=== PATIENT | female | born 1985 | race Caucasian/White ===

== ENCOUNTER 2019-03-27 09:57 | Outpatient (REF) | payer BC, SELFPAY ==
[2019-03-27 13:18] LABS: HCT 41.5 % (36.0-46.0); HGB 13.8 g/dL (12.0-15.5); Mean Corp. HGB Concentration 33.3 g/dL (32.0-36.0); Mean Corpuscular Hemoglobin 30.1 pg (27.0-33.0); Mean Corpuscular Volume 90.6 fL (80-95); Mean Platelet Volume 11.2 fL (8.0-11.0); Platelet Count 258 x1000/uL (130-400); RBC 4.58 m/cumm (4.00-5.20); RBC Distribution Width 13.4 % (11.7-14.6); White Blood Cell Count 7.54 k/cumm (4.4-10.8)
[2019-03-27 13:47] LABS: Anion Gap 10.3 mmol/L (3-11); BUN 19 mg/dL (7-18); CO2 25.7 mmol/L (21.0-32.0); CREATININE 0.81 mg/dL (0.55-1.02); Calcium 9.3 mg/dL (8.5-10.1); Chloride 106 mmol/L (98-107); Glucose 93 mg/dL (70-100); Potassium 4.5 mmol/L (3.5-5.1); Sodium 142 mmol/L (136-145); TSH (W/Ref FT4) 3.04 uIU/mL (0.36-3.74)
== END 2019-03-27 10:17 ==
LOC: NCHCN 09:57
PROVIDERS: PCP Nurse Practitioner Family; Visit Provider Nurse Practitioner Family
DX: R55 Syncope and collapse (principal)
CPT/HCPCS: 80048; 85027; 84443

== ENCOUNTER 2019-04-03 10:19 | Outpatient (REF) | payer BC, SELFPAY ==
--- NOTE | 2019-04-03 09:30 | PAPFT_PTH ---
PATIENT: Vita Gaitan LOC: [facility] U#:[id number] AGE/SX: 34/F ROOM: RE04/03/[address]: Deyvi Borrero : 1985 BED: DIS: 04/03/2019 SPEC #: [id number] RECD: 04/06/19 10:48 STATUS: KIMBERLY REMilton #: [id number] ELDER: 04/03/19 09:[address]: Deyvi Borrero DEPT: [facility] [place] Cytology RECD BY: Sharmaine Mauro Tissues: 1 - CX/ENDOCX FOR PAP SMEARS Procedures: PAP THIN PREP/UVM Screening HPV DNA PROBE Comments: [id number]
== END 2019-04-03 10:39 ==
LOC: NCHCN 10:19
PROVIDERS: PCP Nurse Practitioner Family; Visit Provider Nurse Practitioner Family
DX: Z00.00 Encounter for general adult medical examination without abnormal findings (principal); Z12.4 Encounter for screening for malignant neoplasm of cervix; Z11.51 Encounter for screening for human papillomavirus (HPV)
CPT/HCPCS: 88142; 87624

== ENCOUNTER 2020-06-20 14:00 | Emergency (ER) | payer BC, SELFPAY ==
[2020-06-20] VITALS (13 sets, daily range): BP systolic 110–130; BP diastolic 59–82; PULSE 56–74; RESP 8–26; TEMP 36.6–37; O2SAT 98–100
--- NOTE | 2020-06-20 14:00 | RT.EKG_ITS ---
APPROVED REPORT Exam: Resting ECG Patient Location: E HR:77 bpm ECG Measurements Heart Rate 77 AXIS NV 142 P 65 QRSd 92 QRS 47 QT 382 T 21 QTc 415 Conclusion Sinus rhythm...normal P axis, V-rate 60- 99 Normal Electrocardiogram
--- NOTE | 2020-06-20 14:30 | DI.RAD_ITS ---
EXAM: XR PORTABLE CHEST AP CLINICAL HISTORY: chest pain TECHNIQUE: 2D digital imaging was performed. COMPARISON: No exams were available for comparison FINDINGS: MEDIASTINUM: Normal. HEART: Normal. PULMONARY VASCULATURE: Normal. LUNGS: Clear. PLEURAL SPACE: No pleural effusion or pneumothorax. BONE:Within normal limits for the patient's age. OTHER FINDINGS:There overlying monitoring wires. IMPRESSION: No acute pulmonary findings. DATA REPOSITORY: RADIATION DOSE DELIVERED:
--- NOTE | 2020-06-20 14:37 | ED.GENADUL_ITS ---
Discharge Plan Disposition Patient Disposition: HOME Condition: Good Discharge Details Clinical Impression: Chest pain Primary Care Provider: Deyvi Borrero ED Provider: Sridevi Finn Home Meds and New Rx's Prescriptions: No Action albuterol sulfate 90 mcg/actuation Hfa Aerosol Inhaler 2 puff INHALATION Q6H PRNRF: 0 Discharge Instructions Instructions: Chest Pain (ED) Additional Instructions: Please follow-up with your primary care physician in 2 to 3 days for reevaluation Return earlier should you have new symptoms Your tests today are reassuring Medical Decision Making Radiologist read the x-ray of your pain atelectasis versus pneumonia, patient had symptoms for the past month and a half, no leukocytosis, no hypoxia, no tachypnea, my suspicion for pneumonia is quite low, discussed with patient given that she had pretty significant pneumonia sounds like 6 or 7 years ago, likely residual atelectasis given presentation Patient to COVID-19 Patient is discharged home in stable condition with stable vitals, negative D- dimer, negative troponin with consistent productive cough for 4 days, no indication for second troponin symptoms consistent for 22 hours Heart score of 1 Discharged home stable condition with stable vital Medical Records Medical records reviewed: Yes I reviewed the patient's medical records. HPI This 35-year-old female presents with chest pain. She is active, pain behind April. He has been quite stressed at work. She denies any fever chills or injury. He denies known exacerbating or alleviating factors. She describes the pain is sharp and moderate.. She denies any exacerbation of her pain when leaning back. She denies bowel denies any alleviation of pain with leaning forward. She denies any recent flights, surgeries, long drives, history of coagulopathy. She denies any calf pain or swelling or exogenous hormones. She denies any known early family cardiac history. She does feel that her dad had DC greater than 50 years old. She does not smoke tobacco or have history of hypertension or hyperlipidemia. She denies any pleuritic component to her pain. She says similar episode associated with palpitations 5 years ago and saw cardiology without acute abnormality noted. General Date/Time Provider Initiated Documentation: 06/20/20 14:14 . Related Data Home Medications Medication Instructions Recorded Confirmed albuterol sulfate 2 puff INHALATION Q6H PRN 06/20/20 06/20/20 Allergies Allergy/AdvReac Type Severity Reaction Status Date / Time No Known Allergies Allergy Unverified 06/20/20 14:17 General Stated Complaint: Chest Pain TIO: 2 Review of Systems Narrative: Review of systems negative x7 aside from where indicated in the [facility] Social History Smoking/Tobacco Use Status: Never Smoking risk assessment performed?: Yes Alcohol Intake: current Alcohol Intake frequency: a few times a week Drug use: Never Substance use type: does not use Do you feel safe at home: Yes Do you feel safe in your relationship?: Yes Exam Narrative Exam Narrative: Constitutional: Well developed HEENT: No visible signs of trauma, no palpable Tenderness Eyes: Pupils equal round reactive to light and accommodation Neck: Nontender, no visible sign of trauma Musculoskeletal: No lumbar tenderness, no thoracic tenderness, no cervical spine from this, no hip tenderness bilaterally, no left knee tenderness, left ankle tenderness, over lateral malleolus, no papular no obvious deformity, Skin : No discoloration Neuro: Alert, oriented for age Const General: healthy appearing and no acute distress Orientation: oriented x3 HENMT Head: normal to inspection and atraumatic Throat: uvula midline Eyes Conjunctivae: conjunctivae normal Resp Effort & Inspection: normal respiratory effort Auscultation: clear to auscultation bilaterally Other: No acute distress Cardio Rate: regular rate Rhythm: regular rhythm GI Palpation: soft and nontender Skin General skin exam: no rashes or lesions noted Neuro General: patient alert and patient oriented x3 Extrem Other: No calf swelling or tenderness Course Vital Signs Vital signs: Vital Signs Temperature 37 C 06/20/20 14:10 Pulse 74 06/20/20 14:10 Respiratory Rate 15 06/20/20 14:10 Blood Pressure 130/66 06/20/20 14:10 Pulse Oximetry 99 06/20/20 14:10 Temperature 37 C 06/20/20 14:10 Temperature Source Temporal Artery Scan 06/20/20 14:10 Pulse 74 06/20/20 14:10 Respiratory Rate 15 06/20/20 14:10 Respiratory Effort Non-Labored 06/20/20 14:16 Blood Pressure 130/66 06/20/20 14:10 Blood Pressure Position Supine 06/20/20 14:10 Pulse Oximetry 99 06/20/20 14:10 Oxygen Delivery Method Room Air 06/20/20 14:10 Oxygen Flow Rate 0 06/20/20 14:10 Pain Level 2 06/20/20 14:10
[2020-06-20 15:20] LABS: Abs Immature Grans 0.03 10^3/uL (0.0-0.06); Absolute Basophil Count 0.04 10^3/uL (0.0-0.2); Absolute Eosinophil Count 0.12 10^3/uL (0.0-0.7); Absolute Lymphocyte Count 2.14 10^3/uL (1.2-3.4); Absolute Monocyte Count 0.55 10^3/uL (0.1-0.8); Absolute Neutrophil Count 6.04 10^3/uL (1.2-6.7); Basophils % 0.4; Eosinophils % 1.3; HCT 41.3 % (36.0-46.0); HGB 13.7 g/dL (11.2-15.7); Immature Grans % 0.3; MCH 30.2 pg (27.0-33.0); MCHC 33.2 % (32.0-36.0); MCV 91.2 fL (80-95); MPV 10.7 fL (8.0-11.0); Monocytes % 6.2; Neutrophils % 67.8; Nucleated RBC 0 %; Platelet Count 227 10^3/uL (130-400); RBC 4.53 10^6/uL (3.93-5.22); RDW 12.3 % (11.7-14.6); RDW-SD 41.4 fL; WBC 8.92 10^3/uL (4.4-10.8)
[2020-06-20 15:49] LABS: ALT 19 U/L (14-59); AST 9 U/L (15-37); Albumin 4.1 g/dL (3.4-5.0); Alkaline Phosphatase 61 U/L (46-116); BUN 13 mg/dL (7-18); Bilirubin, Total 0.4 mg/dL (0.2-1.0); CREATININE 0.79 mg/dL (0.55-1.02); Calcium 8.9 mg/dL (8.5-10.1); Chloride 104 mmol/L (98-107); Glucose 84 mg/dL (74-106); Potassium 3.8 mmol/L (3.5-5.1); Sodium 139 mmol/L (136-145); Total Protein 7.7 g/dL (6.4-8.2)
[2020-06-20 15:52] LABS: Troponin I < 0.05 ng/mL (<0.06)
[2020-06-20 16:02] LABS: D-Dimer 152 ng/mlFEU (<500)
--- NOTE | 2020-06-20 16:23 | DI.VRAD_ITS ---
PROCEDURE INFORMATION: Exam: XR Chest, 1 View Exam date and time: 06/20/2020 4:14 PM Age: 35 years old Clinical indication: Chest pain; Type not specified TECHNIQUE: Imaging protocol: XR of the chest Views: 1 view. COMPARISON: No relevant prior studies available. FINDINGS: Tubes, catheters and devices: Overlying EKG wires Lungs: Mild opacities in the medial right base Pleural space: Unremarkable. No pleural effusion. No pneumothorax. Heart/Mediastinum: Unremarkable. No cardiomegaly. Bones/joints: Unremarkable. IMPRESSION: Mild opacities in the medial right base may represent atelectasis or pneumonia. Dictated and Authenticated by: Sedrick Clarke MD. Ordering:KATT Laureano MD
== END 2020-06-20 17:10 | disposition home or self-care (01) ==
PROVIDERS: Emergency Provider Physician Assistant; PCP Nurse Practitioner Family
DX: R07.89 Other chest pain (principal)
CPT/HCPCS: 36415; 80053; 81025; 93005; 99285; 71045; 84484; 85025; 85379; 93010; 99284

== ENCOUNTER 2020-07-22 18:37 | Outpatient (REF) | payer BC, SELFPAY ==
[2020-07-24 11:14] LABS: COVID-19 RT-PCR UVMMC Result Negative (Negative)
== END 2020-07-22 18:38 | disposition home or self-care (01) ==
LOC: NCHCN 18:37
PROVIDERS: PCP Nurse Practitioner Family; Visit Provider Nurse Practitioner Family
DX: R06.02 Shortness of breath (principal)
CPT/HCPCS: U0003

== ENCOUNTER 2020-12-23 11:32 | Outpatient (CLI) | payer BC, SELFPAY ==
[2020-12-23 12:11] LABS: Abs Immature Grans 0.06 10^3/uL (0.0-0.06); Absolute Basophil Count 0.03 10^3/uL (0.0-0.2); Absolute Eosinophil Count 0.14 10^3/uL (0.0-0.7); Absolute Lymphocyte Count 2.06 10^3/uL (1.2-3.4); Absolute Monocyte Count 0.96 10^3/uL (0.1-0.8); Basophils % 0.3; Eosinophils % 1.2; HCT 38.1 % (36.0-46.0); Immature Grans % 0.5; MCH 30.7 pg (27.0-33.0); MCHC 34.1 % (32.0-36.0); MCV 89.9 fL (80-95); MPV 10.2 fL (8.0-11.0); Monocytes % 8.4; Neutrophils % 71.6; Nucleated RBC 0 %; Platelet Count 202 10^3/uL (130-400); RBC 4.24 10^6/uL (3.93-5.22); RDW 12.6 % (11.7-14.6); RDW-SD 40.9 fL; WBC 11.42 10^3/uL (4.4-10.8)
[2020-12-23 12:12] LABS: Absolute Neutrophil Count 8.18 10^3/uL (1.2-6.7)
[2020-12-23 12:22] LABS: Glucose,1 Hr (Glucola) 75 mg/dL (80-140)
[2020-12-23 13:37] LABS: TSH (W/Ref FT4) 1.98 uIU/mL (0.36-3.74)
[2020-12-25 16:11] LABS: Syphilis Total Ab w/Reflex Nonreactive (Nonreactive)
[2020-12-26 11:14] LABS: Varicella IgG Antibody Positive (See Note)
[2020-12-26 11:23] LABS: Rubella IgG Ab (UVM) Positive (See Note)
[2020-12-26 11:28] LABS: Hepatitis B Surface Ag Negative (Negative)
[2020-12-26 12:00] LABS: Hepatitis C Ab w Rflx HCV PCR Negative (Negative)
[2020-12-26 12:08] LABS: HIV-1/2 Ag & Ab Screen Negative (Negative)
== END 2020-12-23 11:33 | disposition home or self-care (01) ==
LOC: LBO 11:33
PROVIDERS: PCP Nurse Practitioner Family; Visit Provider Advanced Practice Midwife
DX: Z34.91 Encounter for supervision of normal pregnancy, unspecified, first trimester (principal); Z11.4 Encounter for screening for human immunodeficiency virus [HIV]; Z11.59 Encounter for screening for other viral diseases; Z01.84 Encounter for antibody response examination; Z3A.10 10 weeks gestation of pregnancy
CPT/HCPCS: 36415; 82950; 86787; 86803; 86850; 86900; 86901; 87340; 87389; 84443; 85025; 86762; 86780

== ENCOUNTER 2020-12-23 19:14 | Outpatient (REF) | payer BC, SELFPAY ==
[2020-12-23 17:23] LABS: *AMPHETAMINES SCREEN URINE Negative (Negative); *BARBITURATES SCREEN URINE Negative (Negative); *BENZODIAZEPINES SCREEN URINE Negative (Negative); Cannabinoids THC Negative (Negative); Cocaine Screen,Urine Negative (Negative); METHADONE URINE SCREEN Negative (Negative); OPIATES URINE SCREEN Negative (Negative)
[2020-12-23 17:26] LABS: Tricyclic Antidepressants Negative (Negative)
[2020-12-26 15:55] LABS: Chlamydia Result Negative (Negative); GC Result Negative (Negative)
[2020-12-29 07:42] LABS: Buprenorphine Negative ng/mL (Cutoff: 5.0); Norbuprenorphine Negative ng/mL (Cutoff: 2.5)
== END 2020-12-23 19:15 | disposition home or self-care (01) ==
LOC: LBN 19:14
PROVIDERS: PCP Nurse Practitioner Family; Visit Provider Advanced Practice Midwife
DX: Z34.91 Encounter for supervision of normal pregnancy, unspecified, first trimester (principal); Z11.3 Encounter for screening for infections with a predominantly sexual mode of transmission; Z3A.10 10 weeks gestation of pregnancy
CPT/HCPCS: 80307; 87077; 87491; 87591; 87086; 87186

== ENCOUNTER 2021-04-14 13:34 | Outpatient (CLI) | payer BC, SELFPAY ==
--- NOTE | 2021-04-14 13:30 | RT.EKG_ITS ---
APPROVED REPORT Exam: Resting ECG Reason for Exam: chest pain Patient Location: O HR:86 bpm ECG Measurements Heart Rate 86 AXIS WA 126 P 61 QRSd 82 QRS 38 QT 346 T 30 QTc 414 Conclusion Sinus rhythm...normal P axis, V-rate 50- 99 Normal Electrocardiogram
== END 2021-04-14 13:35 | disposition home or self-care (01) ==
LOC: DI.CARD 13:35
PROVIDERS: PCP Nurse Practitioner Family; Visit Provider Internal Medicine Cardiovascular Disease
DX: R07.9 Chest pain, unspecified (principal)
CPT/HCPCS: 93010

== ENCOUNTER 2021-07-27 06:17 | Outpatient (CLI) | payer BC, SELFPAY ==
[2021-07-27 08:51] VITALS: BP 123/63; PULSE 76; TEMP 36.7
--- NOTE | 2021-07-27 09:16 | W.OBNST ---
Date of service: 07/27/21 Time of Service: 09:17 NST Evaluation Reason for NST Reasons for Nonstress Test: POSTDATES Gestational Age Gestational Age in Weeks and Days: 41 Weeks and 3Days Test and Monitor Explained Test/Monitor Explained: Test Explained, Monitor Explained and Patient Verbalized Understanding Vital Signs Blood Pressure: 123/63 Pulse: 76 NST Information Date on Monitor: 07/27/21
--- NOTE | 2021-07-27 10:23 | W.OBNST ---
Date of service: 07/27/21 Time of Service: 09:00 NST Evaluation Reason for NST Reasons for Nonstress Test: POSTDATES Gestational Age Gestational Age in Weeks and Days: 41 Weeks and 3Days Test and Monitor Explained Test/Monitor Explained: Test Explained, Monitor Explained and Patient Verbalized Understanding Vital Signs Blood Pressure: 123/63 Pulse: 76 Temperature: 98.1 F NST Information Date on Monitor: 07/27/21 Time on Monitor: 08:27 Date off Monitor: 07/27/21 Time off Monitor: 09:02 Total Time on Monitor: 35 NST Evaluation Patient States Movement: Present FHR Baseline: 135 Variability: Moderate 6-25 bpm Accelerations: 10x10 Decelerations: None NST Results: Reactive Note Other (BPP/HAL being done at [facility] per data processing auditor's orders) NST Note Note: Vita has care with Arnoldo Devries and is planning a home . She was sent in today for NST and sono for postdates. NST reactive and reviewed with her data processing auditor. They plan for repeat NST/HAL on saturday if no labor before then. I recommend induction at 42wks if no spontaneous labor before then due to increased risk of stillbirth and low risks associated with induction. NST Reviewed and Verified by: Zhane Peace
[2021-07-27 10:26] VITALS: BP 123/63; PULSE 76; TEMP 36.7
== END 2021-07-27 09:10 | disposition home or self-care (01) ==
LOC: BCD 06:20 → OBS 09:18
PROVIDERS: PCP Nurse Practitioner Family; Visit Provider Obstetrics & Gynecology
DX: O48.0 Post-term pregnancy (principal); Z3A.41 41 weeks gestation of pregnancy
CPT/HCPCS: 59025

== ENCOUNTER 2021-07-30 19:30 | Inpatient (IN) | payer BC, SELFPAY ==
[2021-07-30 20:58] VITALS: BP 140/74; PULSE 91
[2021-07-30 20:59] VITALS: BP 140/74; PULSE 91; RESP 16; TEMP 36.8
--- NOTE | 2021-07-30 21:01 | W.PM.OBHPL1 ---
Date of service: 07/30/21 Time of Service: 21:01 Assessment and Plan Assessment and plan (1) Post term at 42 weeks gestation: Status: Acute Assessment and plan: 1. Will admit for probable pitocin augmentation of labor 2. Reviewed pitocin use as well as risks, benefits and alternatives. Has her and home field crops harvest machine operator with her for support. 3. Telephone consult with Dr. Batista done in relation to findings and plan. NATALIA (2) Vaginal discharge in third trimester, antepartum: Status: Acute Assessment and plan: 1. ROM plus obtained as there is question as to possible gush of fluid on 07/29 at 1800. No need to wear pad and no further leaking reported. KH (3) Prolonged latent phase of labor: Status: Acute Assessment and plan: [facility]. [facility] Cell Repairer with concern related to prolonged latent labor of approximately 24 hours and possible ROM since 1800 07/29/21. Not confirmed. 2. will admit and get IV access and EFM tracing 3. COVID testing and ROM plus obtained 4. discussed possible pitocin augmentation of contractions, discussed risks, benefits and alternatives, verbalizes understanding. 5. Reviewed patient and status with Dr. Batista who agrees to plan of augmentation of labor. NATALIA (4) GBS (group B Streptococcus carrier), +RV culture, currently : Status: Acute Assessment and plan: 1. patient has received a 2gm Ampicillin dose at home and 1gm dose 4 hours later, will continue with that medication and plan. NATALIA OB-HPI Labor/Delivery History of Present Illness Reason for Visit: prodromal labor and possible ROM Chief Complaint: Uterine Contractions; Suspected Rupture of Membranes , Associated Signs and Symptoms of Suspected ROM: vaginal discharge in small amount. KH ; Other (possible need for labor augmentation. Natalia). TREVER Calculator Estimated Delivery Date Method Current WG Current Estimate 07/17/21 LMP (Uncertain) 41w 6d Other Estimates 07/15/21 Ultrasound #1 42w 1d Comments: Vita and Doug arrive with their home Cell Repairer, Malina, due to possible ROM since 1800 on 07/29/21 and prodromal labor. No large gush of fluid but has had a few small gushes. Baby has been active. VS have been reported as stable and no fever. Patient was 2 cm yesterday and progressed to 4cm this morning according to Malina but labor has stalled since that time. Here for assessment for ROM and probable augmentation of labor. Has had frequent nausea and vomiting. NATALIA History of Present Expected Delivery Route/Plan - plans transfer to home service FOB/ - Doug Farfan Specific Issues/Plan 1. BMI 32, early glucola = 75 2. Neither pt nor plan COVID vaccination, written info given 3. PAP done 04/03/[address] [facility], result nml and HPV neg, scanned into EMR 4. Hx asthma, has inhaler 5. Initial OB UC&S is EColi+ on prelim result, will notify pt & send Rx upon final result. Narrative: there is a faxed copy of record available to view and scan into system. Informed Consent Informed Consent: Augmentation of Labor Review of Systems All systems reviewed & are unremarkable except as noted in HPI and below PFSH All Active Problems (Updated 07/30/21 @ 21:58 by Damaris Jean-Baptiste CNM) GBS (group B Streptococcus carrier), +RV culture, currently (Acute) Prolonged latent phase of labor (Acute) Vaginal discharge in third trimester, antepartum (Acute) Post term at 42 weeks gestation (Acute) Palpitations (Acute) Asymptomatic bacteriuria antepartum (Acute) (Acute) Medical History (Updated 07/30/21 @ 21:58 by Damaris Jean-Baptiste CNM) Elbow tendinitis Surgical History (Updated 07/30/21 @ 21:58 by Damaris Jean-Baptiste CNM) History of tonsillectomy and adenoidectomy Family History (Updated 07/30/21 @ 22:01 by Damaris Jean-Baptiste CNM) Paternal Grandfather Cancer Paternal Grandmother Cancer Aunt Cancer Depression Uncle Cancer Heart disease Hypertension Mother Depression Hypertension Self Depression Other Alcohol use disorder Social History Smoking/Tobacco Use Status: Never Smoking risk assessment performed?: Yes Alcohol Intake: current Alcohol Intake frequency: a few times a week Drug use: Never Substance use type: does not use Do you feel safe at home: Yes Do you feel safe in your relationship?: Yes History History 1 Para 0 Hx # Term Pregnancies 0 Multiple births 0 Hx # Pregnancies 0 Ectopic pregnancies 0 AB induced 0 Hx Number of Living Children 0 AB spontaneous 0 Meds Allergies and Home Medications Allergies Allergy/AdvReac Type Severity Reaction Status Date / Time No Known Allergies Allergy Verified 07/30/21 21:06 Home Medications Medication Instructions Recorded Confirmed Type albuterol sulfate 90 mcg/actuation 2 puff INHALATION Q6H PRN 06/20/20 07/30/21 History aerosol inhaler prenat.vits,vira,[id number] 1 tab PO DAILY 12/23/20 07/30/21 History Exam Physical Exam Vital signs: Pulse BP 91 H 140/74 07/30/21 20:58 07/30/21 20:58 Vital Signs Reviewed: Yes Constitutional Constitutional: mild distress (fatigued, nauseated, occasional contractions) Detailed Labor and Delivery Exam Dilation: 4.5 Effacement (%): 90 station: -1 Cervix position: mid Consistency: soft Edwards Score: Cervical Points Exam 0 1 2 3 Dilation Closed 1-2cm 3-4 cm 5-6cm Effacement 0-30% 40-50% 60-70% 80% Consistency Firm Medium Soft Station -3 -2 -1,0 +1,+2 Position Posterior Mid Anterior EDWARDS Score(Cervical Ripeness Score): 10 Amniotic Membrane Status: Other (possible ROM 1800 on 07/29 no leaking on arrival, ROM plus obtained, membranes palpable against baby's head. NATALIA) Contraction Frequency(min): 3-8 Contraction Duration(sec): 70-100 Contraction Intensity: Moderate Fetus A Heart Rate Baseline: 145 Monitor Accelerations: 10 X 10 Monitor Decelerations: Variable (occasional variable to 120) Est. Weight: 8 lb 8 oz HEENT Exam HEENT Exam: Normal Chest/Brest/Axilla Exam Chest Exam: Normal Breast Exam Breast Exam: Not Done Respiratory Exam Respiratory Exam: Normal Cardiovascular Exam Cardiovascular Exam: Normal Abdominal Exam Abdominal Exam: Normal Exam Exam: Normal Extremities Exam Extremities Exam: Normal Back/Spine/Pelvis Exam Pelvis Adequate: Yes Skin Exam Skin Exam: Normal Neurological Exam Neurological Exam: Normal Psychiatric Exam Psychiatric Exam: Normal Risk Assessment Risk for Shoulder Dystocia Historical/Initial OB: POSITIVE FOR: Pre- BMI>30; NEGATIVE FOR: Pelvic Abnormality, Previous Shoulder Dystocia or Previous Macrosomia 40 Weeks: POSTIVE FOR: Post Dates (41w6d on admission. ); NEGATIVE FOR: EFW> 4500 gms or Maternal Weight Gain >40lb Increased Risk?: Yes Counseling: risk increased due to need for pitocin augmentation for prolonged latent phase labor and post dates. Reviewed potential for shoulder dystocia and that patient will be active member in team to reduce or treat shoulder dystocia if it occurs. Date/Initial: 07/30/21 Risk for Pre-Eclampsia Date Initiated/Initials: pt advised low dose ASA starting @ 12 wks, pt undecided. JK Yes, if one or more: NEGATIVE FOR: Hx Pre-E/Gest HTN, Chronic HTN, Multiple Gestation, Pre-gestational DM, Renal Disease, Systemic Lupus or APA Syndrome Yes, if 2 or more: POSITIVE FOR: Nulliparity and BMI>30; NEGATIVE FOR: Age>= 35 yrs, >10yr btwn pregnancies, ethinicty, Mother/Sister w/ Pre-E or Previous IUGR Risk for Post- Hemorrhage Initial: NEGATIVE FOR: Multiple Gestation, Previous PPH, Known Clotting Deficiency, Grand Multiparity or Anticoagulation Counseled re: Active Management: Yes Date/Initials: 07/30/21 Risks Reviewed Risks Reviewed Upon Admission: Yes
[2021-07-30] MEDS: Ondansetron 4 MG/2 ML VIAL IVP (21:28)
[2021-07-30] MEDS: AMPICILLIN SODIUM 1 GM in Normal Saline 50 ML IVPB (21:29)
[2021-07-30 21:30] LABS: Source Nasal/Nares
[2021-07-30 21:34] LABS: HCT 39.7 % (36.0-46.0); HGB 13.5 g/dL (11.2-15.7); MCH 31.8 pg (27.0-33.0); MCV 93.6 fL (80-95); MPV 11.6 fL (8.0-11.0); Platelet Count 211 10^3/uL (130-400); RBC 4.24 10^6/uL (3.93-5.22); RDW 12.4 % (11.7-14.6); RDW-SD 42.9 fL
[2021-07-30 21:40] LABS: WBC 25.77 10^3/uL (4.4-10.8)
[2021-07-30 22:07] LABS: COVID-19 PCR Negative (Negative)
[2021-07-30 22:25] LABS: ROM Plus Negative
[2021-07-30 22:38] VITALS: TEMP 36.7
--- NOTE | 2021-07-30 23:16 | PGE_ITS ---
Date of service: 07/30/21 Time of Service: 23:16 Informed Consent Informed Consent: Augmentation of Labor Contractions Contraction Frequency(min): irregular Contraction Duration(sec): irregular Intensity: Mild Fetus A Monitor: External (US) Heart Rate Baseline: 125 Variability: Moderate (6-25 BPM) Categories: Category I Accelerations: 15 X 15 Decelerations: None Assessment and Plan Assessment and plan (1) Prolonged latent phase of labor: Status: Acute Assessment and plan: 1. ROM plus negative which is consistent with examiners physical assessment 2. Patient is fatigued declines pitocin induction at this time and requests sleep until 0500 with start of pitocin at that time 3. NST will be done and then will allow patient to sleep, she will notify us of any changes. 4. Pitocin to begin at 0500 due to post dates 42 week gestation. patient and her home emergency communications officer have had conversations about this plan as well and her emergency communications officer agrees it is best to move forward with induction after a period of rest. KH Objective Abnormal lab results 07/30/21 Range/Units 21:17 WBC 25.77 H* (4.4-10.8) 10^3/uL MPV 11.6 H (8.0-11.0) fL Temp Pulse Resp BP 98.1 F 91 H 16 140/74 07/30/21 22:38 07/30/21 20:59 07/30/21 20:59 07/30/21 20:59 Laboratory Results WBC 25.77 10^3/uL (4.4-10.8) H* 07/30/21 21:17 RBC 4.24 10^6/uL (3.93-5.22) 07/30/21 21:17 Hgb 13.5 g/dL (11.2-15.7) 07/30/21 21:17 Hct 39.7 % (36.0-46.0) 07/30/21 21:17 MCV 93.6 fL (80-95) 07/30/21 21:17 MCH 31.8 pg (27.0-33.0) 07/30/21 21:17 MCHC 34.0 % (32.0-36.0) 07/30/21 21:17 RDW 12.4 % (11.7-14.6) 07/30/21 21:17 Plt Count 211 10^3/uL (130-400) 07/30/21 21:17 MPV 11.6 fL (8.0-11.0) H 07/30/21 21:17 Membranes Rupture Negative 07/30/21 22:00 COVID-19 Source Nasal/Nares 07/30/21 21:00 SARS-CoV-2 (PCR) Negative (Negative) 07/30/21 21:00 Patient ABO/Rh A Positive 07/30/21 21: Antibody Screen NEGATIVE 07/30/21 21:17 Subjective Interval history since last seen: Patient declines intervention at this time. Is aware that ROM plus is negative. Has not had leaking of fluid and fears she is too tired to tolerate labor. Ag marialuisa to induction beginning at 0500 if she is able to sleep until then. Patient is aware that induction is recommended at this time and declines. KH Results Hemoglobin/Hematocrit: Hgb 13.5 g/dL (11.2-15.7) 07/30/21 21:17 Hct 39.7 % (36.0-46.0) 07/30/21 21:17 Abnormal Lab Findings: Abnormal Labs 07/30/21 21:17 WBC 25.77 H* MPV 11.6 H
[2021-07-30 23:19] VITALS: BP 110/61; PULSE 82
[2021-07-31] VITALS (121 sets, daily range): BP systolic 106–140; BP diastolic 64–90; PULSE 0–131; RESP 16; TEMP 36.6–37.2
[2021-07-31] MEDS: Normal Saline Flush 10 ML SYR ×2 (02:34→08:05)
[2021-07-31] MEDS: AMPICILLIN SODIUM 1 GM in Normal Saline 50 ML IVPB ×3 (02:35→10:09)
--- NOTE | 2021-07-31 05:04 | PGE_ITS ---
Date of service: 07/31/21 Time of Service: 05:04 Informed Consent Informed Consent: Augmentation of Labor Pelvic Exam Comments: VE deferred, patient has not had an increase in contraction frequency and there is no indication for VE at this time. No loss of fluid noted by patient. NATALIA Fetus A Assessment Note: tracing is pending patient being out of bed to . Last FHR was approximately 2 hours ago and was in 120's. NATALIA Assessment and Plan Assessment and plan (1) Prolonged latent phase of labor: Status: Acute Assessment and plan: 1. Pitocin augmentation has been recommended to Vita and Doug by typewriter assembly and parts inspector and her own centerpuncher. They have consented to move forward at this time. NATALIA (2) Post term at 42 weeks gestation: Status: Acute Assessment and plan: 1. Consent to begin pitocin obtained. Patient is aware of pain management options. NATALIA Objective Abnormal lab results 07/30/21 Range/Units 21:17 WBC 25.77 H* (4.4-10.8) 10^3/uL MPV 11.6 H (8.0-11.0) fL Temp Pulse Resp BP 97.9 F 75 16 133/81 07/31/21 02:42 07/31/21 02:41 07/30/21 20:59 07/31/21 02:41 Laboratory Results WBC 25.77 10^3/uL (4.4-10.8) H* 07/30/21 21:17 RBC 4.24 10^6/uL (3.93-5.22) 07/30/21 21:17 Hgb 13.5 g/dL (11.2-15.7) 07/30/21 21:17 Hct 39.7 % (36.0-46.0) 07/30/21 21:17 MCV 93.6 fL (80-95) 07/30/21 21:17 MCH 31.8 pg (27.0-33.0) 07/30/21 21:17 MCHC 34.0 % (32.0-36.0) 07/30/21 21:17 RDW 12.4 % (11.7-14.6) 07/30/21 21:17 Plt Count 211 10^3/uL (130-400) 07/30/21 21:17 MPV 11.6 fL (8.0-11.0) H 07/30/21 21:17 Membranes Rupture Negative 07/30/21 22:00 COVID-19 Source Nasal/Nares 07/30/21 21:00 SARS-CoV-2 (PCR) Negative (Negative) 07/30/21 21:00 Patient ABO/Rh A Positive 07/30/21 21:17 Antibody Screen NEGATIVE 07/30/21 21:17 Subjective Interval history since last seen: awakened to review plan to move forward with pitocin. Patient agrees to this plan. Will get out of bed to void and then will put patient on monitor with intention to move forward iwth pitocin. We have discussed pain management options. She is most interested in nitrous oxide at this time. Vita is worried she will not have ability to get through labor without some form of pain management and is not opposed to epidural but would like to try other options first. KH Results Hemoglobin/Hematocrit: Hgb 13.5 g/dL (11.2-15.7) 07/30/21 21:17 Hct 39.7 % (36.0-46.0) 07/30/21 21:17 Abnormal Lab Findings: Abnormal Labs 07/30/21 21:17 WBC 25.77 H* MPV 11.6 H
[2021-07-31] MEDS: Normal Saline Flush 10 ML SYR IVP (05:27)
[2021-07-31] MEDS: Oxytocin/Normal Saline 30 UNIT/500 ML BAG 2 UNITS IV (05:27)
[2021-07-31] MEDS: Lactated Ringers 1,000 ML 125 ML IV ×2 (05:28→09:31)
[2021-07-31] MEDS: Ondansetron 4 MG/2 ML VIAL IVP (08:05)
--- NOTE | 2021-07-31 08:05 | W.PM.OBNL1 ---
Date of service: 07/31/21 Time of Service: 08:05 Informed Consent Informed Consent: Augmentation of Labor Pelvic Exam Comments: Deferred. Contractions Contraction Frequency(min): 2 Contraction Duration(sec): 50-60 Intensity: Moderate/Strong Fetus A Monitor: External (US) Heart Rate Baseline: 135 Variability: Moderate (6-25 BPM) Categories: Category I Accelerations: Absent Decelerations: None Assessment and Plan Assessment and plan (1) Prolonged latent phase of labor: Status: Acute Assessment and plan: 1. Pitocin infusion at 6 mu. Tolerating well with use of Nitrous 2. Will give report to Damaris Mayorga CNM who will assume care. (2) GBS (group B Streptococcus carrier), +RV culture, currently : Status: Acute Assessment and plan: 1. continue with Ampicillin 1 gm IV every 4 hours until delivery 2. remains afebrile, no leaking of fluid since arrival, ROM plus was negative. Objective Abnormal lab results 07/30/21 Range/Units 21:17 WBC 25.77 H* (4.4-10.8) 10^3/uL MPV 11.6 H (8.0-11.0) fL Temp Pulse Resp BP 97.8 F 125 H 16 133/69 07/31/21 05:19 07/31/21 08:03 07/31/21 05:19 07/31/21 05:19 Laboratory Results WBC 25.77 10^3/uL (4.4-10.8) H* 07/30/21 21:17 RBC 4.24 10^6/uL (3.93-5.22) 07/30/21 21:17 Hgb 13.5 g/dL (11.2-15.7) 07/30/21 21:17 Hct 39.7 % (36.0-46.0) 07/30/21 21:17 MCV 93.6 fL (80-95) 07/30/21 21:17 MCH 31.8 pg (27.0-33.0) 07/30/21 21:17 MCHC 34.0 % (32.0-36.0) 07/30/21 21:17 RDW 12.4 % (11.7-14.6) 07/30/21 21:17 Plt Count 211 10^3/uL (130-400) 07/30/21 21:17 MPV 11.6 fL (8.0-11.0) H 07/30/21 21:17 Membranes Rupture Negative 07/30/21 22:00 COVID-19 Source Nasal/Nares 07/30/21 21:00 SARS-CoV-2 (PCR) Negative (Negative) 07/30/21 21:00 Patient ABO/Rh A Positive 07/30/21 21:17 Antibody Screen NEGATIVE 07/30/21 21:17 Vital Signs Reviewed: Yes Subjective Interval history since last seen: working with Nitrous oxide for pain relief. Doing well with contractions. is supportive. Their marine steam fitter helper is planning to attend as well soon. KH Results Hemoglobin/Hematocrit: Hgb 13.5 g/dL (11.2-15.7) 07/30/21 21:17 Hct 39.7 % (36.0-46.0) 07/30/21 21:17 Abnormal Lab Findings: Abnormal Labs 07/30/21 21:17 WBC 25.77 H* MPV 11.6 H
--- NOTE | 2021-07-31 11:37 | PGE_ITS ---
Date of service: 07/31/21 Time of Service: 11:37 Informed Consent Informed Consent: Augmentation of Labor Pelvic Exam Dilation: 9 Effacement (%): 100 station: +1 Cervix Position: mid Consistency: soft Pooling: Positive (small amounts of clear fluid) Comments: Vita began feeling an urge to bear down. She was examined and was 9 cms. she was bearing down slightly with contractions. After 30 minutes, an anterior rim of cervix was noted and she continueds to bear down with the stronger c ontractions. Contractions Monitor Mode: External Contraction Frequency(min): every 3-4 Contraction Duration(sec): 60 Fetus A Monitor: External (US) Heart Rate Baseline: 130 Presentation: Vertex Variability: Moderate (6-25 BPM) Categories: Category II FHR Rhythm: Regular Decelerations: Variable Recurrence: Episodic Amniotic Membrane Status: Ruptured Assessment and Plan Assessment and plan (1) Prolonged latent phase of labor: Status: Acute Assessment and plan: second stage of labor. Will continue to assist with pushing. Dr. Jo was notified of patient's progress. Will resume pitocin administration at 2 mu/min and continue to asses FHR pattern. Anticipate (2) Post term at 42 weeks gestation: Status: Acute Assessment and plan: continue to assist with pushing. Objective Abnormal lab results 07/30/21 Range/Units 21:17 WBC 25.77 H* (4.4-10.8) 10^3/uL MPV 11.6 H (8.0-11.0) fL Temp Pulse Resp BP 97.9 F 87 16 139/84 07/31/21 09:25 07/31/21 11:35 07/31/21 05:19 07/31/21 09:22 Laboratory Results WBC 25.77 10^3/uL (4.4-10.8) H* 07/30/21 21:17 RBC 4.24 10^6/uL (3.93-5.22) 07/30/21 21:17 Hgb 13.5 g/dL (11.2-15.7) 07/30/21 21:17 Hct 39.7 % (36.0-46.0) 07/30/21 21:17 MCV 93.6 fL (80-95) 07/30/21 21:17 MCH 31.8 pg (27.0-33.0) 07/30/21 21: MCHC 34.0 % (32.0-36.0) 07/30/21 21: RDW 12.4 % (11.7-14.6) 07/30/21 21:17 Plt Count 211 10^3/uL (130-400) 07/30/21 21: MPV 11.6 fL (8.0-11.0) H 07/30/21 21:17 Membranes Rupture Negative 07/30/21 22:00 COVID-19 Source Nasal/Nares 07/30/21 21:00 SARS-CoV-2 (PCR) Negative (Negative) 07/30/21 21:00 Patient ABO/Rh A Positive 07/30/21 21: Antibody Screen NEGATIVE 07/30/21 21:17 Objective Narrative Objective Narrative: The pitocin was discontinued due to variable decellerations and Oxygen was administered via mask. An IV bolus of 250 cc was administered. . The contraction pattern was noted to be less frequent and reported by Vita as being less strong after the pitocin was discontinued. . Results Hemoglobin/Hematocrit: Hgb 13.5 g/dL (11.2-15.7) 07/30/21 21: Hct 39.7 % (36.0-46.0) 07/30/21 21: Abnormal Lab Findings: Abnormal Labs 07/30/21 21: WBC 25.77 H* MPV 11.6 H
[2021-07-31] MEDS: Oxytocin/Normal Saline 30 UNIT/500 ML BAG 95 UNITS IV (14:25)
[2021-07-31] MEDS: Ibuprofen 600 MG TAB PO (15:31)
--- NOTE | 2021-07-31 16:16 | OBVDS_ITS ---
Date of service: 07/31/21 Time of Service: 16:16 OB Labor/ Delivery Information Baby A Delivery Delivery Method: Spontaneaous Presentation: Vertex Cephalic Position: Vertex Vertex Position: Left Occipital Anterior Cord Description-Baby A: 3 Vessels and Clamped/Cut (by the baby's father after it stopped pulsating) Amniotic Fluid: Clear Estimated Blood Loss: 400 Delivery Outcome: Liveborn Infant Complications: LGA Infant Transferred: Remains with Mother Note: FHTs 130s during first stage of labor with occasional variable decellerations to 90 with contractions. FHTs 130s in second stage with occasional variable decellerations with contractions down to 90s. Progressed to full dilation and began pushing. Vita began bearing down in various positions including the stool and squatting. She moved to the hands and knees position. Second stage huddle was done. Spontaneous delivery of female delivered in TREY position. Delivery was performed by the home tuberculosis specialist, Malina. A hand was palpable delivering with the baby's neck. I assisted with delivery of the hand and left arm which was wrapped around the baby's neck. The baby was delivered and was placed on mother's abdomen and dried and stimulated. There was a Spontaneous cry. The Cord was clamped and cut by the baby's father after it stopped pulsating. The placenta delivered spontaneously and appears to by intact with a three vessel cord. Pitocin 30 units was administered prior to delivery of the placenta. The perineum was inspected and there were bilateral periurethral lacerations noted. The one on the right extended to the vagina and was bleeding. It was repaired with a continuous 3-0 vicryl suture under local anesthetic. The left side was approximated with one interrupted suture. The baby did breastfeed. After delivery, Mother and baby and father of the baby were stable and bonding well in the delivery room and there were no complications. Providers Nurse Pole Incisor Operator: Damaris Mayorga Nurse: Sarai He Nurse: Tracee Amaro Other: Malina Devries Labor/Delivery Information Number of Babies in Womb: 1 Steroids Given: None Reason Steroids Not Administered: N/A Group Beta Strep: Positive Antibiotics Administered: Yes Number of Doses of Antibiotics: 6 Medication in Delivery: nitrous Shoulder Dystocia: No Stages of Labor Onset of Labor Date: 07/31/21 Onset of Labor Time: 06:00 Complete Dilatation Date: 07/31/21 Complete Dilatation Time: 13:01 Labor - Stage 1 Duration: 0 minutes Delivery Date-Baby A: 07/31/21 Delivery Time-Baby A: 14:25 Labor Stage 2 Duration: 1 hours and 24 minutes Placenta Delivery Date-Baby A: 07/31/21 Placenta Delivery Time-Baby A: 14:40 Labor-Stage 3 Duration: 15 minutes Total Length of Labor-Baby A: 8 hours and 25 minutes Placenta Cultured: No Placenta Status: Delivered Baby A Gender: Female Gestational Status: Postterm (>42 wks) Gestational Age in Weeks/Days: 42 Weeks and 0 Days weight: 8825 lb 1.662 oz Length-Baby A: 21.25 in Head Circumference-Baby A: 13.5 in Score-1 Minute Interval(Baby A) Heart Rate-1 minute: 100 BPM or Greater Respiratory Effort- 1 minute: Spontaneous/Strong Cry Muscle Tone-1 minute: Active Movement Reflex Response-1 minute: Prompt Response Color-1 minute: Pallor or Cyanosis Total Score-1 minute: 8 Score-5 Minute Interval(Baby A) Heart Rate- 5 minute: 100 BPM or Greater Respiratory Effort-5 minute: Spontaneous/Strong Cry Muscle Tone-5 minute: Active Movement Reflex Response-5 minute: Prompt Response Color-5 minute: Bluish Hands or Feet Total Score- 5 minute: 9 Interventions Repair of Laceration Type: Periurethral, Laceration Extension: N/A. Sponge Count Correct: No Sponges Placed in Vagina, Sharp Count Correct: Yes.
[2021-07-31] MEDS: Hamamelis Leaf/Glycerin 100 EACH BOX PR (17:19)
[2021-07-31] MEDS: Dibucaine 1% 28 GM TUBE TP (17:19)
[2021-08-01 07:01] LABS: HCT 34.5 % (36.0-46.0); HGB 11.6 g/dL (11.2-15.7); MCH 31.4 pg (27.0-33.0); MCHC 33.6 % (32.0-36.0); MCV 93.5 fL (80-95); MPV 11.5 fL (8.0-11.0); Platelet Count 201 10^3/uL (130-400); RBC 3.69 10^6/uL (3.93-5.22); RDW 12.7 % (11.7-14.6); RDW-SD 43.8 fL; WBC 19.92 10^3/uL (4.4-10.8)
[2021-08-01 10:33] VITALS: BP 110/65; PULSE 85; RESP 16; TEMP 37.1
[2021-08-01] MEDS: Ibuprofen 600 MG TAB PO (10:55)
[2021-08-01] MEDS: Hamamelis Leaf/Glycerin 100 EACH BOX PR (10:55)
--- NOTE | 2021-08-01 10:57 | W.PM.OBDISCH ---
Date of service: 08/01/21 Time of Service: 13:06 DS: Diagnosis Discharge Diagnosis (1) Vaginal delivery: Status: Acute Asessment and Plan: Vita requests discharge on post day 1. She was planning a home and was transferred to the hospital for PROM and positive GBS status. She delivered spontaneously after pitocin augmentation. She has been caring for her baby girl, Rahel independently. Pain is managed well with oral analgesics. Voiding without difficulty. well. A - stable mother and baby , Post day 1, PROM, positive GBS P - Discharge to home this evening after 24 hours. Routine post instructions. Follow up with her home tape keller operator, Malina. Discharge Plan Discharge Details Reason For Visit: Possible rupture of membranes Admit Date/Time: 07/30/21 19:30 Admit Provider: Damaris Jean-Baptiste Attending Provider: Damaris Jean-Baptiste Primary Care Provider: Deyvi Borrero Home Meds and New Rx's Prescriptions: No Action prenat.vits,vira,[id number] Tablet 1 tab PO DAILY 0RF albuterol sulfate 90 mcg/actuation Hfa Aerosol Inhaler 2 puff INHALATION Q6H PRN0RF Discharge Instructions Stand Alone Forms: BC Instructions, BC Post Vaginal Deliver Activity:: Activity as Tolerated Activity:: Activity as Tolerated Equipment/Supplies:: No Equipment Needed Diet:: As Tolerated OB:DS Summary Summary Vaginal Delivery Method: Spontaneaous Episiotomy Description: None Laceration Description: Periurethral Laceration Extension: N/A Contraception Discussed Contraception Discussed: Yes, [place] Infant Gender-Baby A: Female weight: 8825 lb 1.662 oz Status at Discharge Functional status at discharge: independent ambulation Overall status at discharge: patient is back to baseline Mental Status: mental status grossly normal Speech and Movement: speech and movement normal Mood: congruent mood Affect: normal affect Exam Physical Exam Vital signs: Temp Pulse Resp BP 98.7 F 85 16 110/65 08/01/21 10:33 08/01/21 10:33 08/01/21 10:33 08/01/21 10:33 Detailed Respiratory Exam Respiratory: Present CTA bilaterally Cardiovascular Exam Cardiovascular Exam: Normal Fundal Exam Fundus: Below Umbilicus Exam Perineum: Repair Intact External: Present lacerations (bilateral periurethrals, right side repaired. left approximated with one suture. ) Extremities Exam Extremity Exam: Normal Psychiatric Exam Psychiatric Exam: Normal PFSH All Active Problems (Updated 08/01/21 @ 11:01 by Damaris Mayorga CNM) Vaginal delivery (Acute) Palpitations (Acute) Medical History (Updated 08/01/21 @ 11:01 by Damaris Mayorga CNM) Asymptomatic bacteriuria antepartum Elbow tendinitis Surgical History (Updated 07/30/21 @ 21:58 by Damaris Jean-Baptiste CNM) History of tonsillectomy and adenoidectomy Family History (Updated 07/30/21 @ 22:01 by Damaris Jean-Baptiste CNM) Paternal Grandfather Cancer Paternal Grandmother Cancer Aunt Cancer Depression Uncle Cancer Heart disease Hypertension Mother Depression Hypertension Self Depression Other Alcohol use disorder Social History Smoking/Tobacco Use Status: Never Smoking risk assessment performed?: Yes Alcohol Intake: current Alcohol Intake frequency: a few times a week Drug use: Never Substance use type: does not use Do you feel safe at home: Yes Do you feel safe in your relationship?: Yes History History 1 Para 0 Hx # Term Pregnancies 0 Multiple births 0 Hx # Pregnancies 0 Ectopic pregnancies 0 AB induced 0 Hx Number of Living Children 0 AB spontaneous 0 DS: Data Vitals/I&O Vitals and I&O: Vital Signs Temperature 98.7 F 08/01/21 10:33 Pulse 85 08/01/21 10:33 Pulse Rhythm Regular 08/01/21 08:25 Respiratory Rate 16 08/01/21 10:33 Respiratory Depth Normal 08/01/21 08:25 Blood Pressure 110/65 08/01/21 10:33 Blood Pressure Mean 80 08/01/21 10:33 Pain Level 3 08/01/21 10:33 Intake & Output 07/31/21 07/31/21 08/01/21 11:59 23:59 11:59 Intake Total 1081.033 / 2133.233 1052.2 / 2133.233 Output Total 200 / 1450 1250 / 1450 450 / 450 Balance 881.033 / 683.233 -197.8 / 683.233 -450 / -450 Intake: IV 1081.033 / 2133.233 1052.2 / 3.233 Output: Urine 200 / 1450 1250 / 1450 450 / 450 Other: Urine Color Pale Pale Pale Yellow Yellow Yellow Data Completed and Pending Labs on day of discharge: Labs from last 24 hours 08/01/21 06:40 WBC 19.92 H RBC 3.69 L Hgb 11.6 Hct 34.5 L MCV 93.5 MCH 31.4 MCHC 33.6 RDW 12.7 Plt Count 201 MPV 11.5 H
== END 2021-08-01 17:26 | disposition home or self-care (01) | DRG 807 ==
PROVIDERS: Advanced Practice Midwife; Admitting Provider Advanced Practice Midwife; PCP Nurse Practitioner Family; Visit Provider Advanced Practice Midwife
DX: O48.0 Post-term pregnancy (principal); Z37.0 Single live birth; Z3A.42 42 weeks gestation of pregnancy; O63.0 Prolonged first stage (of labor); O99.824 Streptococcus B carrier state complicating childbirth; O36.63X0 Maternal care for excessive fetal growth, third trimester, not applicable or unspecified; O71.82 Other specified trauma to perineum and vulva; O42.92 Full-term premature rupture of membranes, unspecified as to length of time between rupture and onset of labor
CPT/HCPCS: 36415; 84112; 85027; 86850; 86900; 86901; 87635; J2405; J3490

== ENCOUNTER 2022-06-11 16:18 | Outpatient (CLI) | payer BC, SELFPAY ==
--- NOTE | 2022-06-11 | DI.RAD_ITS ---
Exam(s) XR CHEST 2V PA LATERAL EXAM: XR CHEST 2V PA LATERAL CLINICAL HISTORY: COUGH, R05.9 TECHNIQUE: 2D digital imaging was performed. COMPARISON: CR,XR XR PORTABLE CHEST AP from 06/20/2020 FINDINGS: HEART: Normal size. Aorta: Not dilated. PULMONARY VASCULATURE: Normal. LUNGS: Clear. PLEURAL SPACE: No pleural effusion or pneumothorax. BONE:Unremarkable for age. IMPRESSION: No acute abnormality. DATA REPOSITORY: RADIATION DOSE DELIVERED:
== END 2022-06-11 16:38 ==
PROVIDERS: PCP Naturopath; Visit Provider Naturopath
DX: R05.8 Other specified cough (principal)
CPT/HCPCS: 71046

== ENCOUNTER 2022-12-14 07:43 | Day surgery (SDC) | payer BC, SELFPAY ==
[2022-12-14] VITALS (7 sets, daily range): BP systolic 92–125; BP diastolic 42–80; PULSE 60–80; RESP 12–19; TEMP 36.1–36.6; O2SAT 95–100; BMI 33.5
[2022-12-14] MEDS: Lactated Ringers 1,000 ML 80 ML IV ×2 (08:46→10:05)
--- NOTE | 2022-12-14 09:01 | W.ANESPRE ---
General Info Date of Service Date Performed: 12/14/22 Height: 5 ft 6 in Weight: 94.347 kg Body Mass Index (BMI): 33.5 Surgical Procedure: Operation Date: 12/14/22 09:10 Proposed Procedure Side Surgeon p Exam Under Anesthesia Reid Cornejo MD s Colonoscopy Reid Cornejo MD Meds Allergies and Home Medications Allergies Allergy/AdvReac Type Severity Reaction Status Date / Time raspberry AdvReac Severe extreme Verified 12/14/22 08:03 pain and diarrhea blackberries AdvReac Severe extreme Uncoded 12/14/22 08:03 pain and diarrhea Home Medication Medication Instructions Recorded albuterol sulfate 90 mcg/actuation 2 puff inhalation Q6H PRN 06/20/20 aerosol inhaler ascorbic acid (vitamin C) 1,000 mg 1 g PO DAILY 05/16/22 capsule cholecalciferol (vitamin D3) 25 25 mcg PO DAILY 05/16/22 mcg (1,000 unit) capsule qioaraan-hac-Om-FA 1 mg 1 tab PO DAILY 12/12/22 tablet Current Visit Medications: Current Medications Generic Name Dose Route Start Last Admin Trade Name Freq PRN Reason Stop Dose Admin Ringer's Solution 1,000 mls @ 80 mls/hr 12/14/22 06:00 12/14/22 08:46 IV 01/12/23 23:59 80 mls/hr INFUSION LUNA Administration IV Miscellaneous Supplies 1 each 12/14/22 06:00 Iv Access IV 01/12/23 23:59 DIRECTED LUNA Sodium Chloride 0 ml 12/14/22 06:00 Normal Saline Flush 10 Ml Syr IV 01/12/23 23:59 PRN PRN Sodium Chloride 0 ml 12/14/22 06:00 Normal Saline 10 Ml Vial IJ 01/12/23 23:59 DIRECTED PRN Sterile Water 0 ml 12/14/22 06:00 Water,Injection,Sterile 10 Ml Vial IJ 01/12/23 23:59 DIRECTED PRN PFSH Active Problems Active Problems: Problem Status Onset Code 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 Bursitis of right knee M70.51 Perianal abscess K61.0 Vaginal delivery O80 Palpitations R00.2 Medical History Medical History Asthma Asymptomatic bacteriuria antepartum Elbow tendinitis Surgical History Surgical History History of tonsillectomy and adenoidectomy S/P skin biopsy multiple 1906-1221 all Benign Tobacco Smoking/Tobacco Use Status: Never Alcohol Alcohol Intake: current Alcohol intake frequency: a few times a week Substance Use Substance use: Never Substance use type: does not use Prental History History 1 Para 0 Hx # Term Pregnancies 0 Multiple births 0 Hx # Pregnancies 0 Ectopic pregnancies 0 AB induced 0 Hx Number of Living Children 0 AB spontaneous 0 Vital Signs and Lab Results Vital Signs Most Recent Vital Signs in EMR: Most Recent Vital Signs Temp Pulse Resp BP Pulse Ox 36.1 C L 65 16 125/80 98 12/14/22 07:56 12/14/22 07:56 12/14/22 07:56 12/14/22 07:56 12/14/22 07:56 Lab Results Blood Type / Crossmatch: No Data to Display Complete Blood Count: No Data to Display Complete Metabolic Panel: No Data to Display Liver Function Panel: No Data to Display Coagulation Panel: No Data to Display Cardiac Panel: No Data to Display Arterial Blood Gas: No Data to Display Venous Blood Gas: No Data to Display Pancreas Panel: No Data to Display Thyroid Panel: No Data to Display Infectious Disease: No Data to Display Blood Cultures: No Data to Display Toxicology Panel: No Data to Display Panel: No Data to Display Imaging and Studies Imaging and Studies Study information below may be from another EMR and interpreted by another provider. Please see original notes in EMR for more complete details. EKG Summary: 04/23/2021: Exam: Resting ECG Reason for Exam: chest pain Patient Location: O HR:86 bpm ECG Measurements Heart Rate 86 AXIS VA 126 P 61 QRSd 82 QRS 38 QT 346 T30 QTc 414 Conclusion Sinus rhythm...normal P axis, V-rate 50- 99 Normal Electrocardiogram Anesthesia Assessment and Plan Anesthesia History Personal History: No History of Anesthesia Complications Family History: No Family History of Anesthesia Complications Exercise Tolerance Exercise Tolerance: Metabolic Equivalents>4 Pertinent Negatives Pertinent Negatives: No Symptoms of GERD, No Major Cardiovascular Symptoms or Complaints and No Major Pulmonary Symptoms or Complaints Cardiac & Pulmonary Exam Cardiac Exam: Normal S1/S2 Heart Sounds Pulmonary Exam: Clear Bilateral Breath Sounds Implantable Cardiac Device Does patient have a Pacemaker or an ICD?: No Airway Exam Known Difficult Airway: No Mallampati Class: 1 Mouth Opening: Normal (> 3cm) Thyromental Distance: Greater than 3 cm Neck Range of Motion: Full ROM Neck Circumference: Normal Teeth Condition: Normal Dentition ASA Classification ASA Score: ASA 2 Emergency Case?: No NPO Status NPO Status: NPO Clears >2 hours, Solids >8 hours Status Status: Negative HCG Anesthesia Plan Resuscitation Status: Full Code Anesthesia Technique: General Anesthesia Airway Planned: Natural Airway Monitors Used: Standard Monitors
--- NOTE | 2022-12-14 09:46 | BOWEL_PTH ---
PATIENT: Vita Gaitan LOC: [facility] U#:[id number] AGE/SX: 37/F ROOM: RE12/14/[address]: Reid Cornejo : 1985 BED: DIS: 12/14/2022 SPEC #: [id number] RECD: 12/14/22 12:25 STATUS: KIMBERLY RE #: [id number] ELDER: 12/14/22 09:[address]: Reid Cornejo DEPT: Surgical Specimen RECD BY: Sridevi Tobias ENTERED: 12/14/22 12:26 SP TYPE: Bowel OTHR DR: Maddie Bang Tissues: 1 - BIOPSY BOWEL Procedures: GROSS AND MICRO LEVEL 4 Comments: [id number]
[2022-12-14] MEDS: Bupivacaine 0.25% Pres-Free 30 ML VIAL (10:06)
[2022-12-14] MEDS: Bupivacaine LIPOSOME/PF 133 MG/10 ML VIAL IJ (10:11)
--- NOTE | 2022-12-14 10:24 | W.COLOREPORT ---
Date of service: 12/14/22 Time of Service: 10:24 Colonoscopy Report Procedure Description: Procedures performed: 1. Colonoscopy with cold forceps biopsies Preoperative diagnosis: Perianal fistula Postoperative diagnosis: Perianal fistula, grade 1 internal hemorrhoids, mild external hemorrhoids Surgeon: Yesika Cornejo Anesthesia: Karoline Indication for procedure: 37-year-old woman who had a perianal abscess that evolved into a fistula. Colonoscopy indicated to ensure this is not Crohn's disease. Findings: Terminal ileum was normal in appearance.? There was no evidence in the mucosa of the ileum to suggest chronic inflammation.? Cold forceps biopsies were taken from this randomly.? I did not appreciate any diverticular disease anywhere. She did not have any polyps. We thought we saw one but it ended up being a fold. A small, short, perianal fistula was found tracking from about 7:00 to the posterior midline. Some mild hemorrhoidal disease inside and out. Surveillance/follow-up recommendations: 10 years, biopsies are presumably going to return as normal. Complications: None Blood loss: Minimal Prep: Excellent Procedure in detail: Written consent was obtained from the patient who was in agreement with the risks, benefits and indications of the procedure.? The patient was turned from her upper endoscopy (see separate procedure note) and anesthesia was continued and the patient was kept in the same position I started the colonoscopy portion of the procedure.? Digital rectal exam and visual examination was performed.? Normal sphincter tone.? Mild internal and external hemorrhoids.? A well?lubricated colonoscope was advanced without difficulty all the way to the cecum identified by the ileocecal valve, and triangular folds and appendiceal orifice.? Terminal ileum was normal.? It was then slowly withdrawn.?? Retroflexion was performed in the rectum.? The findings/interventions are noted above. The scope was then removed and the patient underwent exam under anesthesia and fistulotomy (see separate procedure note) and the patient tolerated the procedure well and was then taken back to the PACU in hemodynamically stable condition
--- NOTE | 2022-12-14 10:28 | W.PM.OP ---
Date of service: 12/14/22 Time of Service: 10:28 Operative Note Operative Note Refer to Anesthesia Record Procedure Description: Procedures performed: 1.? Exam under anesthesia 2. Anoscopy 3. Bilateral pudendal nerve block 4.? Fistulotomy Preoperative diagnosis: Fistula en ano Postoperative diagnosis: Same Surgeon: Yesika Cornejo Anesthesia: Karoline Indication for procedure: 47-year-old woman with a fistula after perianal abscess Findings: Fistulotomy performed over the tract which started at 7:00 and tracted to the posterior midline Surveillance/follow-up recommendations: Unlikely to be needed Complications: None Blood loss: Minimal Specimens:? No Procedure in detail: Written consent was obtained from the patient who was in agreement with the risks, benefits and indications of the procedure.? She was kept in the same position after the colonoscopy was done (see separate procedure note) and a well?lubricated anoscope was introduced in the anal canal carefully evaluated. Findings noted above. Betadine was used for cleaning/prep. A bilateral pudendal nerve block was administered as well as local around the fistula site. Lacrimal probes were used to identify the fistula tract. I then opened up the tract with needle cautery. Hemostasis was excellent the patient tolerated the procedure well. The scope was then removed and the PACU in stable condition and was not having perianal pain at that time.
--- NOTE | 2022-12-14 10:31 | W.PM.DSUDISC ---
Date of service: 12/14/22 Time of Service: 10:31 Discharge Plan Disposition Patient Disposition: Home Condition: Good Discharge Details Attending Provider: Reid Cornejo Primary Care Provider: Maddie Bang Home Meds and New Rx's Prescriptions: No Action ascorbic acid (vitamin C) 1,000 mg capsule 1 g PO DAILY cholecalciferol (vitamin D3) 25 mcg (1,000 unit) capsule 25 mcg PO DAILY albuterol sulfate 90 mcg/actuation Hfa Aerosol Inhaler 2 puff INHALATION Q6H PRN 1 mg Tablet 1 tab PO DAILY Discharge Instructions Additional Instructions: FINDINGS: The fistula was found and opened up. No unusual or unexpected findings on colonoscopy. Biopsies were taken routinely but they are suspected to come back as normal. Nothing visually suspicious for Crohn's disease. Postop pain management use Tylenol and/or ibuprofen and sitz bath's. Go to the bathroom and have bowel movements as normal. Be gentle and avoid excessive wiping or cleaning of this area. Avoid constipation by staying hydrated using stool softeners as needed. Do sitz bath as 3 times a day for the next couple of weeks. Follow-up as needed. If you are still having persistent symptoms and issues 1 month from now, call and schedule follow-up appointment. If things improve over the next month, nothing else needs to be done. Activity:: Activity as Tolerated Diet:: As Tolerated Discharge Orders Discharge Orders: Discharge Order (Routine); Ordered 12/14/22 Ordered By: Reid Cornejo
--- NOTE | 2022-12-14 11:19 | W.ANESPOSTOP ---
Postoperative Evaluation Date, Time and Location Date Performed: 12/14/22 Time Performed: 11:19 Patient Location: Day Surgery Unit Vital Signs Most Recent Imported Vital Signs: Most Recent Vital Signs Temp Pulse Resp BP Pulse Ox 36.1 C L 60 16 105/66 99 12/14/22 10:48 12/14/22 10:48 12/14/22 10:48 12/14/22 10:48 12/14/22 10:48 Pain Score Most Recent Pain Score: Most Recent Pain Score Pain Level 2 12/14/22 10:48 Assessment Mental Status: Awake (Alert & Oriented to Patient Baseline) Airway and Respiratory Function: Patent airway with normal (patient baseline) respiratory exam Cardiovascular Function: Hemodynamically Stable Hydration Status: Adequately Hydrated Nausea & Vomiting: No Nausea or Vomiting Pain: Pt. Denies Any Pain Peripheral Nerve Block: Patient did not receive a nerve block
== END 2022-12-14 11:20 | disposition home or self-care (01) ==
PROVIDERS: PCP Naturopath; Visit Provider Student in an Organized Health Care Education/Training Program
PROC: (CPT 46270; principal; 2022-12-14 09:00)
PROC: 0DJD8ZZ Inspection of Lower Intestinal Tract, Via Natural or Artificial Opening Endoscopic (ICD-10-PCS; CPT 45378; 2022-12-14 09:00)
DX: K60.3 Anal fistula (principal); K64.0 First degree hemorrhoids; K64.4 Residual hemorrhoidal skin tags
CPT/HCPCS: 46270; 45380; 88305; J2001; J2704

== ENCOUNTER 2023-02-13 18:54 | Inpatient (IN) | payer BC, SELFPAY ==
[2023-02-13 19:02] VITALS: BP 140/63; PULSE 89; RESP 16; TEMP 37.1; O2SAT 97
--- NOTE | 2023-02-13 21:45 | DI.CT_ITS ---
Exam(s) CT ABDOMEN PELVIS W EXAM: CT ABDOMEN PELVIS W CLINICAL HISTORY: fever h/o perirectal fistula. TECHNIQUE: Imaging Protocol: Axial computed tomography images with coronal and sagittal reformatted images were created and reviewed CONTRAST MATERIAL: Intravenous: Omnipaque 350 Contrast volume:100 ml Oral: / no COMPARISON: No exams were available for comparison FINDINGS: ABDOMEN: Lung Bases: Normal where visualized. Liver: Normal density. No measurable mass. Gallbladder and biliary tract: No radiodense calculus or dilation. Pancreas: Normal density, no abnormal calcifications or inflammatory process. Spleen: Normal. Kidneys: Normal size, contour and axis. No radiodense stones or obstructive uropathy. No suspicious m asses seen. Adrenal glands: No masses seen. Vasculature: Abdominal aorta non-dilated. PELVIS: Bladder: No gross wall thickening. No calculi.No focal mass. Bowel: No obstruction. No bowel wall thickening. Appendix normal. Peritoneal cavity: Trace, physiologic amount of pelvic fluid. No focal collection or mesenteric infl ammatory response. Bones: Unremarkable for age. Reproductive organs: Within normal limits. Dominant follicle right ovary. Lymph nodes: Unremarkable. Soft tissues: 2.3 x 1.8 x 2.0 cm peripherally enhancing collection consistent with abscess in the per ianal region. Visible fistula extending inferiorly to the inferomedial left buttock. IMPRESSION:: 2.3 centimeter perianal abscess with fistula extending to the inferomedial left buttock . RADIATION DOSE DELIVERED: 1,361.38mGy.cm Total DLP DATA REPOSITORY: All CT scans at this facility are submitted to the National Radiology Data Registry (NRDR) Dose Index Registry (DIR) with the [employer] (ACR). RADIATION OPTIMIZATION: All CT scans at this facility use at least one of these dose optimization te chniques: automated exposure control; mA and/or kV adjustment per patient size (includes targeted exa ms where dose is matched to clinical indication); or iterative reconstruction.
--- NOTE | 2023-02-13 21:54 | W.ED.GENAD ---
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 She tells me she was tested for Crohn's disease and she does not have Crohn's. The fistula has been healing by secondary intention and she is followed by Keren Mendoza in the surgical clinic. She presents today with pain and swelling of the perineum. She has 1 partner. She gave 18 months ago and still is nursing occasionally but tells me that her milk has dried up. She recently took Plan B after unprotected intercourse and also had a recent vaginal candidiasis infection which was treated with [id number] nystatin. She has had a low-grade fever at home but denies any dysuria. Her pelvic exam reveals a whitish discharge which is cloudy but not malodorous. She does not have excessive tenderness on bimanual exam. There is no evidence of an STI. My plan is to obtain a CT scan of the abdomen and pelvis. Her is negative. I have written for ketorolac and acetaminophen for pain. The CT should demonstrate any intra-abdominal or pelvic abscess. Ultrasound is not available because of the late hour. GC chlamydia and wet prep are pending. [facility] Medical Records Medical records reviewed: Yes I reviewed the patient's medical records. Lab Data Lab results reviewed: Yes I reviewed the patient's lab results. Lab results narrative: Mild leukocytosis normal H&H. Mild hypokalemia normal LFTs urine shows an elevated specific gravity and trace protein but no nitrite or leukocyte Estrace. There were moderate epithelial cells and may not have been a good sample HPI General Mode of arrival: ambulatory. Date/Time Provider Initiated Documentation: 02/13/23 19:57. Limitations to Documentation: no limitations. Information obtained by: patient, RN notes reviewed and old records reviewed. History of Present Illness with intensity rated at 6. and is localized to the abdomen, genitals and buttocks. and it has been constant. Patient did receive the following treatments prior to arrival, NSAID HPI Narrative: Time seen was 2134 in bed 8. The patient is a -0-1-1, who gave 18 months ago. Following her vaginal delivery she developed constipation and eventually developed a perirectal abscess which required several episodes of drainage in the office. She subsequently developed a fistula between the rectum and the left buttocks which has been healing by secondary intention. She is and has 1 partner. She tells me that last week she developed symptoms of a yeast infection including a whitish discharge and itching. She used qjcf-[id number] nystatin with relief. On February 10 she had unprotected intercourse and took Plan B. She did not have any cramping or vaginal bleeding after taking it. Over the past 2 days she has had pain in the perineum which is difficult for her to differentiate between the rectum and vagina. She states that the perineum feels swollen and similar to how she felt after her vaginal delivery. She states she only has 1 partner. She denies any dysuria or vaginal discharge. She does have mild bilateral lower abdominal pain and has had some nausea but no vomiting. She has not had any diarrhea. She did have a recent URI including nasal congestion which has resolved. She is complaining of pain in the perineum which is constant and 5-6 out of 10 in severity. It is aggravated by bending standing and sitting. She took 400 mg of ibuprofen at lunchtime. She has had a low-grade fever at home with a Tmax of 100.9. She denies any headache rashes chest pain or shortness of breath. The cutaneous opening of the fistula has not been draining and has closed off spontaneously. Related Data Home Medications Medication Instructions Recorded Confirmed albuterol sulfate 90 mcg/actuation 2 puff inhalation Q6H PRN 06/20/20 02/13/23 aerosol inhaler [id number] 1 mg 1 tab PO DAILY 12/12/22 12/12/22 tablet Allergies Allergy/AdvReac Type Severity Reaction Status Date / Time raspberry AdvReac Severe extreme Verified 02/13/23 19:07 pain and diarrhea blackberries AdvReac Severe extreme Uncoded 02/13/23 19:07 pain and diarrhea General Stated Complaint: GenMedical TIO: 3 Review of Systems Narrative: see hpi Constitutional Constitutional: Reports fever(s), Denies frequent falls, Denies headache(s) and Denies weight loss Comments: Low-grade fever. No change in weight Eyes Eyes: Reports system reviewed and no additional complaints, except as documented ENT Ears, Nose, Mouth, and Throat: Denies headache(s) Comments: Recent URI symptoms. She did have a mild sore throat. She is status post tonsillectomy Cardiovascular Cardiovascular: Denies chest pain, Denies leg edema and Denies dyspnea Respiratory Respiratory: Denies dyspnea Comments: The patient does have a history of asthma. She denies any wheezing, productive cough or shortness of breath Gastrointestinal Gastrointestinal: Reports as per HPI, Reports abdominal pain, Denies hematochezia, Reports constipation, Denies fecal incontinence, Denies diarrhea, Reports nausea and Denies vomiting Comments: No bowel or bladder incontinence or retention. No saddle anesthesia Genitourinary Genitourinary: Reports as per HPI, Denies abnormal menses, Denies dysuria and Reports pelvic pain Comments: Patient's last menstrual period began in the last week of January but she cannot remember the exact date Musculoskeletal Musculoskeletal: Reports as per HPI, Denies arthralgias, Denies numbness and Denies tingling Neurologic Neurologic: Denies frequent falls, Denies headache(s), Denies numbness and Denies tingling Endocrine Endocrine: Reports system reviewed and no additional complaints, except as documented Hematologic/Lymphatic Hematologic/Lymphatic: Denies easy bleeding Allergic/Immunologic Comments: Allergies to raspberries and blackberries PFSH All Active Problems Fistula (Acute) Bursitis of right knee (Acute) Perianal abscess (Acute) Vaginal delivery (Acute) Palpitations (Acute) Medical History Asthma Asymptomatic bacteriuria antepartum Elbow tendinitis Surgical History History of colonoscopy (~12/2022) History of tonsillectomy and adenoidectomy S/P skin biopsy multiple [id number] all Benign Family History Paternal Grandfather Cancer Paternal Grandmother Cancer Aunt Cancer Depression Uncle Cancer Heart disease Hypertension Mother Depression Hypertension Self Depression Other Alcohol use disorder Social History Smoking/Tobacco Use Status: Never Smoking risk assessment performed?: Yes Alcohol Intake: current Alcohol Intake frequency: a few times a week Drug use: Never Substance use type: does not use Housing: house Current gender identity: female Do you feel safe at home: Yes Do you feel safe in your relationship?: Yes Female Reproductive History Menstrual control method: none History History 1 Para 0 Hx # Term Pregnancies 0 Multiple births 0 Hx # Pregnancies 0 Ectopic pregnancies 0 AB induced 0 Hx Number of Living Children 0 AB spontaneous 0 Exam Narrative Exam Narrative: The patient well-developed well-nourished female who is alert and oriented in no acute distress. Vital signs within normal limits. She is not febrile. Room air O2 O2 sat is normal at 97%. Const General: cooperative, healthy appearing, comfortable, no acute distress, well developed, well groomed and well hydrated Nutritional Appearance: average body habitus and well nourished Orientation: alert, awake and oriented x3 HENMT Head: normal to inspection, normocephalic and atraumatic Ears: hearing grossly normal bilaterally and external ears normal General nose exam: external nose normal, nares normal and no nasal discharge Face and sinus: normal facial exam, sinuses nontender and face symmetric Mouth: oral mucosae normal, lip normal, tongue normal, oropharynx normal, moist mucous membranes and other (Normal phonation. The patient is handling secretions.) Throat: posterior oropharynx normal and uvula midline Eyes General: appearance normal, both eyes and all related structures Eyelids: eyelids normal Conjunctivae: conjunctivae normal Sclera: sclerae normal Cornea: corneas normal Pupils: PERRL EOM: EOM intact bilaterally and No nystagmus Neck Neck: normal visual inspection, full ROM, no lymphadenopathy, no meningeal signs, trachea midline and supple Lymphatic: no lymphadenopathy noted Chest Chest: normal inspection of the chest Resp Effort & Inspection: normal respiratory effort, able to speak in complete sentences, no audible wheezes, no nasal flaring, no respiratory distress, no retractions, no stridor, not tachypneic, no tracheal deviation, no use of accessory muscles, No prolonged expiratory phase and other (Normal inspiratory to expiratory ratio.) Auscultation: clear to auscultation bilaterally, no rales, no rhonchi, no wheezes and no rubs Tactile Fremitus: tactile fremitus absent Cardio Jugular venous pressure: no JVD Palpation: normal PMI Rate: regular rate Rhythm: regular rhythm Heart Sounds: S1 normal, S2 normal, no gallops, no murmurs and no rubs GI Inspection: normal to inspection, no abdominal wall ecchymosis and non-distended Palpation: soft, no hepatosplenomegaly, no aortic enlargement, no guarding, nontender and No ascites Percussion: normal to percussion Auscultation: normal bowel sounds Other: Her rectal exam revealed a 2 mm healed lesion that was the cutaneous end of the fistula. It was closed. There was no erythema fluctuance or discharge. Digital exam was not performed General: No CVA tenderness External Female Exam: normal external appearance Speculum Exam - Vagina: normal appearance of the vagina, abnormal vaginal discharge (Whitish discharge not malodorous) white; not clear, not malodorous, not boody, not santizo, not frothy and not yellow, no foreign bodies, no lacerations, no lesions, No vaginal bleeding, No tissue present in vagina, no masses, swelling and tenderness Speculum Exam - Cervix: No cervical os open and closed Bimanual Exam- Vagina & Uterus: normal bimanual exam, uterine size normal and consistency normal Bimanual Exam- Adnexa, other: normal adnexae OB/External & Speculum: external exam normal, no foreign bodies, no tissue noted in vagina, No cervical os open and No vaginal bleeding Back/Spine/Pelvis Back: no CVA tenderness and No back tenderness Cervical Spine: normal cervical lordosis, cervical ROM normal, No cervical muscular tenderness, No pain with cervical ROM, No cervical spinal tenderness and No step off deformity Thoracic/Lumbar Spine: thoracic and lumbar spine normal to inspection, No thoracic spinal tenderness and No lumbar spinal tenderness Pelvis: no pain with anterior-posterior compression and no pain with lateral compression Skin General skin exam: no rashes or lesions noted, turgor normal, no petechiae, no purpura and other (Skin is normal for ethnicity.) Lesions: no lesions Rashes: no rashes Trauma: no lacerations or abrasions Neuro General: patient alert, patient awake, patient oriented x3, moves all extremities, no meningeal signs, no focal motor deficits and CN's II-XI intact bilaterally Cranial Nerves: CN's II-XI intact bilaterally, PERRL, accommodation normal, EOM intact bilaterally, no nystagmus, facial strength normal, tongue midline, hearing normal and no nystagmus Cognition: normal cognition Speech: speech normal Motor: muscle tone normal throughout and strength 5/5 throughout Sensory Exam: no sensory deficits noted Extrem General: normal to inspection, full ROM, capillary refill normal, no clubbing, cyanosis or edema and no calf tenderness Psych Appearance: grossly normal Mental Status: mental status grossly normal Speech and Movement: speech and movement normal Mood: congruent mood Affect: normal affect Attitude: cooperative Thought Process: normal Thought Content: normal Insight: insight good Judgment: judgment good Other: The patient appears to have capacity make medical decisions. Course Vital Signs Vital signs: Vital Signs Temperature 37.1 C 02/13/23 19:02 Pulse 89 02/13/23 19:02 Respiratory Rate 16 02/13/23 19:02 Blood Pressure 140/63 02/13/23 19:02 Pulse Oximetry 97 02/13/23 19:02 Temperature 37.1 C 02/13/23 19:02 Temperature Source Oral 02/13/23 19:02 Pulse 89 02/13/23 19:02 Respiratory Rate 16 02/13/23 19:02 Respiratory Effort Normal 02/13/23 20:37 Respiratory Depth Normal 02/13/23 20:37 Respiratory Pattern Normal 02/13/23 20:37 Blood Pressure 140/63 02/13/23 19:02 Blood Pressure Position Sitting 02/13/23 19:02 Pulse Oximetry 97 02/13/23 19:02 Oxygen Delivery Method Room Air 02/13/23 19:02 Oxygen Flow Rate 0 02/13/23 19:02 Pain Level 7 02/13/23 19:02 Sign Out Sign Out Data: Sign Out Comment: This is a healthy 38-year-old female who developed a cutaneous rectal fistula after recurrent perirectal abscess and constipation which was treated with drainage in the office as an outpatient. The fistula has been healing well. She presents today with pain and swelling in the perineum and a low-grade fever. We are awaiting the results of her CT scan, wet prep and GC and chlamydia which will not be resulted this evening. Last updated by Yulissa Ziegler MD at 02/13/23 23:55
[2023-02-13 21:57] LABS: Abs Immature Grans 0.05 10^3/uL (0.0-0.06); Absolute Basophil Count 0.04 10^3/uL (0.0-0.2); Absolute Eosinophil Count 0.24 10^3/uL (0.0-0.7); Absolute Monocyte Count 1.05 10^3/uL (0.1-0.8); Basophils % 0.3; Eosinophils % 1.9; HCT 37.2 % (36.0-46.0); HGB 12.6 g/dL (11.2-15.7); Immature Grans % 0.4; Lymphocytes % 25.2; MCH 30.7 pg (27.0-33.0); MCHC 33.9 % (32.0-36.0); MCV 91 fL (80-95); MPV 10.4 fL (8.0-11.0); Monocytes % 8.3; Neutrophils % 63.9; Platelet Count 199 10^3/uL (130-400); RDW 12.3 % (11.7-14.6); RDW-SD 40.8 fL; WBC 12.68 10^3/uL (4.4-10.8)
[2023-02-13] MEDS: Acetaminophen 500 MG TAB 1000 MG PO (22:00)
[2023-02-13] MEDS: Ketorolac 15 MG/ML VIAL IVP (22:00)
[2023-02-13 22:06] LABS: ALT 14 U/L (14-59); AST 8 U/L (15-37); Albumin 3.5 g/dL (3.4-5.0); Alkaline Phosphatase 79 U/L (46-116); Anion Gap 4.6 mmol/L (3-11); BUN 16 mg/dL (7-18); Bilirubin, Total 0.2 mg/dL (0.2-1.0); CO2 28.4 mmol/L (21.0-32.0); Calcium 8.7 mg/dL (8.5-10.1); Chloride 103 mmol/L (98-107); Estimated GFR 74.88 (mL/min/1.73m2); Glucose 109 mg/dL (74-106); Magnesium 2.1 mg/dL (1.8-2.4); Potassium 3.2 mmol/L (3.5-5.1); Sodium 136 mmol/L (136-145); Total Protein 7.2 g/dL (6.4-8.2)
[2023-02-13] MEDS: Normal Saline 1,000 ML 1000 ML IV (22:21)
[2023-02-13 22:25] LABS: Bilirubin Negative (Negative); Blood Negative (Negative); Clarity Clear (Clear); Glucose Negative (Negative); Ketones Negative (Negative); Leukocyte Esterase Negative (Negative); Nitrite Negative (Negative); Specific Gravity >= 1.030 (1.005-1.025); Urobilinogen 0.2 mg/dL (Up to 0.2); pH 6.5 (5-8)
[2023-02-13 22:32] LABS: Epithelial Cells Moderate HPF (Negative); RBC 0-2 HPF (0-2); WBC 0-2 HPF (0-5)
[2023-02-13 22:33] LABS: Bacteria Rare HPF (Negative); C & S Indicated? No/Sq. Contamination; Casts Negative LPF (Negative); Crystals Negative HPF (Negative); Mucus Trace (Negative)
[2023-02-13] MEDS: Normal Saline Flush 10 ML SYR IVP (23:42)
[2023-02-13] MEDS: Omnipaque 350 MG/ML 100 ML BTL IJ (23:42)
[2023-02-13] MEDS: Normal Saline - Diluent 50 ML VIAL IJ (23:42)
[2023-02-14] VITALS (18 sets, daily range): BP systolic 88–135; BP diastolic 48–86; PULSE 60–92; RESP 13–20; TEMP 35.9–37.3; O2SAT 96–100; BMI 33.9
--- NOTE | 2023-02-14 01:02 | DI.VRAD_ITS ---
PROCEDURE INFORMATION: Exam: CT Abdomen And Pelvis With Contrast Exam date and time: 02/13/2023 11:46 PM Age: 38 years old Clinical indication: Patient HX: Fever, HX of perirectal fistula TECHNIQUE: Imaging protocol: Computed tomography of the abdomen and pelvis with contrast. Radiation optimization: All CT scans at this facility use at least one of these dose optimization techniques: automated exposure control; mA and/or kV adjustment per patient size (includes targeted exams where dose is matched to clinical indication); or iterative reconstruction. Contrast material: OMNIPAQUE 350; Contrast volume: 100 ml; Contrast route: INTRAVENOUS (IV); COMPARISON: US OB BIOPHYSICAL PROFILE 07/27/2021 9:33 AM FINDINGS: Lungs: Lung bases clear. Liver: Normal appearing liver. Gallbladder and bile ducts: Gallbladder partially collapsed. No calcified gallstones seen. No biliary dilatation. Pancreas: Normal appearing pancreas. Spleen: Splenomegaly, 13.5 cm craniocaudal dimension. Adrenal glands: Normal appearing adrenal glands. Kidneys and ureters: Normal appearing kidneys. No hydronephrosis. No obstructing ureteral stones. Stomach and bowel: No oral contrast. Stomach partially distended with ingested material. No small bowel dilatation to suggest obstruction. Normal-appearing colon. No evidence of diverticulitis or colitis. Appendix: Appendix partially obscured but normal in caliber and appearance through its visualized portion. Intraperitoneal space: Small amount of free fluid in the deep pelvis. No free air. Vasculature: Normal caliber abdominal aorta. Lymph nodes: No pathologically enlarged mesenteric, retroperitoneal, or pelvic sidewall lymph nodes. Urinary bladder: Normal appearing urinary bladder. Reproductive: Anteverted uterus, normal in size. Right ovary partially obscured. 2.8 cm x 3.2 cm dominant right ovarian follicle/cyst. Left ovary largely obscured but not grossly enlarged. Bones/joints: No acute fracture seen among the bones of the abdomen or pelvis. Soft tissues: Tiny fat-containing ventral hernia at the umbilicus, doubtful clinical significance. 2.3 cm x 1.8 cm x 2.0 cm peripherally enhancing fluid collection anterior to the distal rectum with an appearance suspicious for perianal abscess given the provided clinical history. Fistulous tract noted extending inferiorly to the inferomedial aspect of the left buttock. Associated fistulization to the vagina? IMPRESSION: 1. 2.8 cm x 3.2 cm dominant right ovarian follicle/cyst. Small amount of free fluid in the deep pelvis. 2. 2.3 cm x 1.8 cm x 2.0 cm peripherally enhancing fluid collection anterior to the distal rectum with an appearance suspicious for perianal abscess given the provided clinical history. Fistulous tract noted extending inferiorly to the inferomedial aspect of the left buttock. Fistulization to the vagina should be excluded clinically. Clinical correlation is recommended. If additional imaging is required, MRI could be obtained for further evaluation. Dictated and Authenticated by: Obi Osorio MD. Ordering:TRINITY Duenas MD
--- NOTE | 2023-02-14 01:17 | W.EDPROG ---
Date of service: 02/14/23 Time of Service: 01:[address] shows perianal abscess and fistula, pt sleeping and awakens easily to voice. Discussed case with Dr. Zamarripa who accepts for admission and will likely need surgical exploration. Zosyn ordered, pt in agreement with plan Imaging Data Radiologic Study: Attestation: I personally reviewed and interpreted this imaging study as follows: Imaging: CT Scan Radiologist's impression: 1. 2.8 cm x 3.2 cm dominant right ovarian follicle/cyst. Small amount of free fluid in the deep pelvis. 2. 2.3 cm x 1.8 cm x 2.0 cm peripherally enhancing fluid collection anterior to the distal rectum with an appearance suspicious for perianal abscess given the provided clinical history. Fistulous tract noted extending inferiorly to the inferomedial aspect of the left buttock. Fistulization to the vagina should be excluded clinically. Clinical correlation is recommended. If additional imaging is required, MRI could be obtained for further evaluation. Sign Out Sign Out Data: Sign Out Comment: This is a healthy 38-year-old female who developed a cutaneous rectal fistula after recurrent perirectal abscess and constipation which was treated with drainage in the office as an outpatient. The fistula has been healing well. She presents today with pain and swelling in the perineum and a low-grade fever. We are awaiting the results of her CT scan, wet prep and GC and chlamydia which will not be resulted this evening. Last updated by Yulissa Ziegler MD at 02/13/23 23:55 Discharge Plan Disposition Patient Disposition: Admit to [facility] Discharge Details Chief Complaint: GenMedical Clinical Impression: Perianal abscess, Fistula Primary Care Provider: Maddie Bang ED Provider: Celio Nunes Home Meds and New Rx's Prescriptions: No Action albuterol sulfate 90 mcg/actuation Hfa Aerosol Inhaler 2 puff INHALATION Q6H PRN 1 mg Tablet 1 tab PO DAILY
[2023-02-14] MEDS: Normal Saline 1,000 ML 150 ML IV ×3 (01:41→09:23)
[2023-02-14] MEDS: Ondansetron 4 MG/2 ML VIAL IVP (01:41)
[2023-02-14] MEDS: PIPERACILLIN/TAZO 4.5 GM in Normal Saline 100 ML IVPB (01:41)
--- NOTE | 2023-02-14 09:40 | PDOC.CMIN ---
Date of service: 02/14/23 Time of Service: 09:40 Care Management Initial Assmt Initial Assessment REASON FOR HOSPITALIZATION:: Rectal cutaneous fistula, recurrent perirectal abscess PREVIOUS FUNCTIONAL STATUS/SOCIAL/FAMILY SUPPORTS:: Vita lives in [place] with her Doug and baby. She feels supported by friends and family in the community. 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 She is active and independent at baseline. CURRENT FUNCTIONAL STATUS:: Vita was lying in bed when CM met with her. She just came back from the OR and shares that it feels nice to not be in pain. Per pt, she tolerated a Jello and would like something else to eat. CM notified nursing. ADVANCE DIRECTIVES:: None on file Has patient been provided with info about the portal/API?: Yes Did the patient sign up for the portal?: No CODE STATUS:: Full Code INSURANCE COVERAGE / FINANCIAL ISSUES:: BC/BS of [employer] [employer] CURRENT HOME/COMMUNITY SERVICES/EQUIPMENT:: None PRIMARY CARE PHYSICIAN:: Maddie Bang POTENTIAL DISCHARGE NEEDS:: Follow up appointments, discharge plan of care. PATIENT/FAMILY EDUCATION NEEDS:: Review discharge instructions, limitations, medications and plan to follow up with community providers. Discuss ask me three. ANTICIPATED BARRIERS TO DISCHARGE:: None identified. TRANSPORTATION:: Via private vehicle with family. PLAN:: Anticipate Vita will discharge home when medically cleared by provider. She will follow up with community providers and her discharge plan of care as instructed. She will be driven home via private vehicle with . No new [facility] services are indicated at this time. CM will follow. [facility] All Active Problems (Updated 02/14/23 @ 11:19 by Iesha Dao DO) Leukocytosis (leucocytosis) (Acute) [id number] (Acute) Recurrent Fistula (Acute) Bursitis of right knee (Acute) Perianal abscess (Acute) Vaginal delivery (Acute) Palpitations (Acute) Medical History Asthma Asymptomatic bacteriuria antepartum Elbow tendinitis Surgical History History of colonoscopy (~12/2022) History of tonsillectomy and adenoidectomy S/P skin biopsy multiple [id number] all Benign Family History Paternal Grandfather Cancer Paternal Grandmother Cancer Aunt Cancer Depression Uncle Cancer Heart disease Hypertension Mother Depression Hypertension Self Depression Other Alcohol use disorder Social History Smoking/Tobacco Use Status: Never Smoking risk assessment performed?: Yes Alcohol Intake: current Alcohol Intake frequency: a few times a week Drug use: Never Substance use type: does not use Housing: house Current gender identity: female Do you feel safe at home: Yes Do you feel safe in your relationship?: Yes Female Reproductive History Menstrual control method: none History History 1 Para 0 Hx # Term Pregnancies 0 Multiple births 0 Hx # Pregnancies 0 Ectopic pregnancies 0 AB induced 0 Hx Number of Living Children 0 AB spontaneous 0
--- NOTE | 2023-02-14 10:07 | W.PM.HP.N ---
Date of service: 02/14/23 Time of Service: 10:08 Assessment and Plan Assessment and plan (1) Fistula: Status: Acute Assessment and plan: - OR today for incision and drainage and infection control. See risks and benefits in HPI. There is concerned that this may communicate with the vagina. If this visualized today under E UA, then patient will we refer her down to colorectal at [facility]. Further recommendations following surgery Zosyn Multimodality pain control plan Supportive care (2) Perianal abscess: Status: Acute Assessment and plan: As above (3) Hwqauea-dn-fyl: Status: Acute (4) Leukocytosis (leucocytosis): Status: Acute History of Present Illness Narrative: 38-year-old otherwise healthy female with a recurrent perirectal abscess. She has developed a recurrence. From reviewing the CT there is concern that it may involve vagina. We will plan on doing an I&D for infection control, and evaluation under anesthesia today. If if it truly does communicate with the vagina and then she is going to need to go [place] see colorectal [place] [employer] [facility] [facility] [place] Risks include bleeding, infection, pneumonia, blood clots, anesthesia, damage to sphincters resulting in stenosis or loss of control, recurrence, and need for further surgery, and need to do dressing changes and wound care, and pain. ABDOMEN: Lung Bases: Normal where visualized. Liver: Normal density. No measurable mass. Gallbladder and biliary tract: No radiodense calculus or dilation.? Pancreas: Normal density, no abnormal calcifications or inflammatory process. Spleen: Normal. Kidneys: Normal size, contour and axis. No radiodense stones or obstructive uropathy. No suspicious masses seen. Adrenal glands: No masses seen. Vasculature: Abdominal aorta non-dilated.? PELVIS:? Bladder:? No gross wall thickening. No calculi.No focal mass. Bowel: No obstruction. ? No bowel wall thickening. Appendix normal. Peritoneal cavity: Trace, physiologic amount of pelvic fluid.? No focal collection or mesenteric inflammatory response. Bones: Unremarkable for age.? Reproductive organs: Within normal limits. ? Dominant follicle right ovary. Lymph nodes: Unremarkable.? Soft tissues: 2.3 x 1.8 x 2.0 cm peripherally enhancing collection consistent with abscess in the perianal region.? Visible fistula extending inferiorly to the inferomedial left buttock. IMPRESSION::? 2.3 centimeter perianal abscess with fistula extending to the inferomedial left buttock. OP Note 12/14/22 Dr. Mily guardado: Fistulotomy performed over the tract which started at 7:00 and tracted to the posterior midline Surveillance/follow-up recommendations: Unlikely to be needed Complications: None Blood loss: Minimal Specimens:? No Procedure in detail: Written consent was obtained from the patient who was in agreement with the risks, benefits and indications of the procedure.? She was kept in the same position after the colonoscopy was done (see separate procedure note) and a well?lubricated anoscope was introduced in the anal canal carefully evaluated.? Findings noted above.? Betadine was used for cleaning/prep.? A bilateral pudendal nerve block was administered as well as local around the fistula site.? Lacrimal probes were used to identify the fistula tract.? I then opened up the tract with needle cautery. Review of Systems All systems reviewed & are unremarkable except as noted in HPI and below PFSH All Active Problems (Updated 02/14/23 @ 11:19 by Iesha Dao DO) Leukocytosis (leucocytosis) (Acute) Yhqgiox-ly-pnu (Acute) Recurrent Fistula (Acute) Bursitis of right knee (Acute) Perianal abscess (Acute) Vaginal delivery (Acute) Palpitations (Acute) Medical History Asthma Asymptomatic bacteriuria antepartum Elbow tendinitis Surgical History History of colonoscopy (~12/2022) History of tonsillectomy and adenoidectomy S/P skin biopsy multiple [id number] all Benign Family History Paternal Grandfather Cancer Paternal Grandmother Cancer Aunt Cancer Depression Uncle Cancer Heart disease Hypertension Mother Depression Hypertension Self Depression Other Alcohol use disorder Social History Smoking/Tobacco Use Status: Never Smoking risk assessment performed?: Yes Alcohol Intake: current Alcohol Intake frequency: a few times a week Drug use: Never Substance use type: does not use Housing: house Current gender identity: female Do you feel safe at home: Yes Do you feel safe in your relationship?: Yes Female Reproductive History Menstrual control method: none History History 1 Para 0 Hx # Term Pregnancies 0 Multiple births 0 Hx # Pregnancies 0 Ectopic pregnancies 0 AB induced 0 Hx Number of Living Children 0 AB spontaneous 0 Meds Allergies and Home Medications Allergies Allergy/AdvReac Type Severity Reaction Status Date / Time vishal AdvReac Severe extreme Verified 02/13/23 19:07 pain and diarrhea blackberries AdvReac Severe extreme Uncoded 02/13/23 19:07 pain and diarrhea Home Medications Medication Instructions Recorded Confirmed Type albuterol sulfate 90 mcg/actuation 2 puff inhalation Q6H PRN 06/20/20 02/13/23 History aerosol inhaler uiaezqyf-ksx-Vk-FA 1 mg 1 tab PO DAILY 12/12/22 12/12/22 History tablet Exam Narrative Exam Narrative: PHYSICAL EXAM GENERAL APPEARANCE: Alert, healthy appearance, oriented, x 3,? in no acute distress HYDRATION: Well hydrated HEAD, EYES, EARS, NECK, THROAT: Head is normocephalic, pupils equal, round, reactive to light and accommodation, ocular movement intact, sclera clear and no jaundice. ?Dentition intact. LUNGS: normal respiration/normal chest excursion. ?Clear to auscultation bilaterally. ?No wheeze. ?HEART: Regular rate and rhythm. no murmurs ABDOMEN: soft and non-tender to palpation.? Normal bowel sounds.? The abscess seems to be more in the right labial region. It does track along the same plane as the previous perirectal abscess/fissure. But it does not seem to involve the rectum. Further delineation following exam under anesthesia. Patient is very tender today and cannot tolerate manual exam. Results Labs 02/13/23 21:40 02/13/23 21:40 Labs: Laboratory Results - last 24 hr 02/13/23 02/13/23 02/13/23 21:40 21:40 22:15 WBC 12.68 H RBC 4.10 Hgb 12.6 Hct 37.2 MCV 91 MCH 30.7 MCHC 33.9 RDW 12.3 Plt Count 199 MPV 10.4 Immature Gran % 0.4 Neutrophils % 63.9 Lymphocytes % 25.2 Monocytes % 8.3 Eosinophils % 1.9 Basophils % 0.3 Nucleated RBC % 0.0 Absolute Neutrophils 8.10 H Absolute Lymphocytes 3.20 Absolute Monocytes 1.05 H Absolute Eosinophils 0.24 Absolute Basophils 0.04 Sodium 136 Potassium 3.2 L Chloride 103 Carbon Dioxide 28.4 Anion Gap 4.6 BUN 16 Creatinine 1.0 Est GFR (CKD-EPI 2020) 74.88 Glucose 109 H Calcium 8.7 Magnesium 2.1 Total Bilirubin 0.2 AST 8 L ALT 14 Alkaline Phosphatase 79 Total Protein 7.2 Albumin 3.5 Urine Color Yellow Urine Clarity Clear Urine pH 6.5 Ur Specific [place] >= 1.030 H Urine Protein Trace H Urine Ketones Negative Urine Blood Negative Urine Nitrite Negative Urine Bilirubin Negative Urine Urobilinogen 0.2 Ur Leukocyte Esterase Negative Urine RBC 0-2 Urine WBC 0-2 Ur Epithelial Cells Moderate Urine Crystals Negative Urine Bacteria Rare Urine Casts Negative Urine Mucus Trace Ur Culture Indicated? No/Sq. Contamination Urine Glucose Negative Last Vital Signs Temp 36.1 C L 02/14/23 07:10 Pulse 60 02/14/23 07:10 Resp 16 02/14/23 07:10 BP 103/67 02/14/23 07:10 Pulse Ox 99 02/14/23 07:10 Time Spent Time spent with Patient: 40-54 minutes Time was spent: preparing to see the patient(eg.review tests), obtaining and/or reviewing separately otained hiistory, ordering medications,tests, procedures, referring, communicating with other health child care attendant school, indepentently interpreting results, counseling the patient and care coordination
[2023-02-14] MEDS: Lactated Ringers 1,000 ML 100 ML IV (10:57)
--- NOTE | 2023-02-14 11:38 | ANES.PREOP_ITS ---
General Info Date of Service Date Performed: 02/14/23 Height: 5 ft 6 in Weight: 95.254 kg Body Mass Index (BMI): 33.9 Surgical Procedure: Operation Date: 02/14/23 12:10 Proposed Procedure Side Surgeon p I &D, Excision-Nadiya Rectal Abscess Iesha Dao, DO Meds Allergies and Home Medications Allergies Allergy/AdvReac Type Severity Reaction Status Date / Time raspblorri AdvReac Severe extreme Verified 02/13/23 19:07 pain and diarrhea blackberries AdvReac Severe extreme Uncoded 02/13/23 19:07 pain and diarrhea Home Medication Medication Instructions Recorded albuterol sulfate 90 mcg/actuation 2 puff inhalation Q6H PRN 06/20/20 aerosol inhaler ifizsczk-lrj-Qm-FA 1 mg 1 tab PO DAILY 12/12/22 tablet Current Visit Medications: Current Medications Generic Name Dose Route Start Last Admin Trade Name Freq PRN Reason Stop Dose Admin Fentanyl 75 mcg 02/14/23 01:15 Fentanyl 100 Mcg/2 Ml Vial IVP Q1H PRN PRN Ringer's Solution 1,000 mls @ 100 mls/hr 02/14/23 10:00 02/14/23 10:57 IV 100 mls/hr INFUSION LUNA Administration Piperacillin Sod/Tazobactam 50 mls @ 100 mls/hr 02/14/23 12:00 Sod 3.375 gm/ Sodium Chloride IVPB Q6H LUNA IV Miscellaneous Supplies 1 each 02/13/23 22:00 Iv Access-Emergency Dept IV DIRECTED LUNA Iohexol 100 ml 02/13/23 23:45 02/13/23 23:42 Omnipaque 350 Mg/Ml 100 Ml Btl IJ 03/15/23 23:59 100 ml DIRECTED LUNA Administration Ondansetron HCl 4 mg 02/14/23 01:15 02/14/23 01:41 Ondansetron 4 Mg/2 Ml Vial IVP 4 mg Q4H PRN PRN Administration Sodium Chloride 0 ml 02/13/23 21:54 02/13/23 23:42 Normal Saline Flush 10 Ml Syr IVP 10 ml PRN PRN Administration Sodium Chloride 50 ml 02/13/23 23:45 02/13/23 23:42 Normal Saline - Diluent 50 Ml Vial IJ 50 ml .FOR DI USE LUNA Administration PFSH Active Problems Active Problems: Problem Status Onset Code Leukocytosis (leucocytosis) D72.829 Rfrcwjd-sr-lbf K60.3 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 Bursitis of right knee M70.51 Perianal abscess K61.0 Vaginal delivery O80 Palpitations R00.2 Medical History Medical History Asthma Asymptomatic bacteriuria antepartum Elbow tendinitis Surgical History Surgical History History of colonoscopy (~12/2022) History of tonsillectomy and adenoidectomy S/P skin biopsy multiple [id number] all Benign Tobacco Smoking/Tobacco Use Status: Never Alcohol Alcohol Intake: current Alcohol intake frequency: a few times a week Substance Use Substance use: Never Substance use type: does not use Prental History History 1 Para 0 Hx # Term Pregnancies 0 Multiple births 0 Hx # Pregnancies 0 Ectopic pregnancies 0 AB induced 0 Hx Number of Living Children 0 AB spontaneous 0 Vital Signs and Lab Results Vital Signs Most Recent Vital Signs in EMR: Most Recent Vital Signs Temp Pulse Resp BP Pulse Ox 35.9 C L 71 16 111/72 99 02/14/23 11:10 02/14/23 11:10 02/14/23 11:10 02/14/23 11:10 02/14/23 11:10 Point of Care Results Point of Care Results: POC- Test(urine) Negative 02/14/23 01:48 Lab Results 02/13/23 21:40 02/13/23 21:40 Blood Type / Crossmatch: No Data to Display Complete Blood Count: White Blood Count 12.68 10^3/uL (4.4-10.8) H 02/13/23 21:40 Red Blood Count 4.10 10^6/uL (3.93-5.22) 02/13/23 21:40 Hemoglobin 12.6 g/dL (11.2-15.7) 02/13/23 21:40 Hematocrit 37.2 % (36.0-46.0) 02/13/23 21:40 Platelet Count 199 10^3/uL (130-400) 02/13/23 21:40 Complete Metabolic Panel: Sodium 136 mmol/L (136-145) 02/13/23 21:40 Potassium 3.2 mmol/L (3.5-5.1) L 02/13/23 21:40 Chloride 103 mmol/L (98-107) 02/13/23 21:40 Carbon Dioxide 28.4 mmol/L (21.0-32.0) 02/13/23 21:40 BUN 16 mg/dL (7-18) 02/13/23 21:40 Creatinine 1.0 mg/dL (0.55-1.02) 02/13/23 21:40 Est GFR (CKD-EPI 2020) 74.88 (mL/min/1.73m2) 02/13/23 21:40 Magnesium 2.1 mg/dL (1.8-2.4) 02/13/23 21:40 Calcium 8.7 mg/dL (8.5-10.1) 02/13/23 21:40 Albumin 3.5 g/dL (3.4-5.0) 02/13/23 21:40 Glucose 109 mg/dL (74-106) H 02/13/23 21:40 Liver Function Panel: Alanine Aminotransferase (ALT/SGPT) 14 U/L (14-59) 02/13/23 21: 40 Aspartate Amino Transf (AST/SGOT) 8 U/L (15-37) L 02/13/23 21:4 0 Coagulation Panel: No Data to Display Cardiac Panel: No Data to Display Arterial Blood Gas: No Data to Display Venous Blood Gas: No Data to Display Pancreas Panel: No Data to Display Thyroid Panel: No Data to Display Infectious Disease: No Data to Display Blood Cultures: No Data to Display Toxicology Panel: No Data to Display Panel: No Data to Display Imaging and Studies Imaging and Studies Study information below may be from another EMR and interpreted by another provider. Please see original notes in EMR for more complete details. EKG Summary: 04/23/2021: Exam: Resting ECG Reason for Exam: chest pain Patient Location: O HR:86 bpm ECG Measurements Heart Rate 86 AXIS IA 126 P 61 QRSd 82 QRS 38 QT 346 T30 QTc 414 Conclusion Sinus rhythm...normal P axis, V-rate 50- 99 Normal Electrocardiogram Anesthesia Assessment and Plan Anesthesia History Personal History: No History of Anesthesia Complications Family History: No Family History of Anesthesia Complications Exercise Tolerance Exercise Tolerance: Metabolic Equivalents>4 Cardiac & Pulmonary Exam Cardiac Exam: Normal S1/S2 Heart Sounds Pulmonary Exam: Clear Bilateral Breath Sounds Implantable Cardiac Device Does patient have a Pacemaker or an ICD?: No Airway Exam Known Difficult Airway: No Mallampati Class: 1 Mouth Opening: Normal (> 3cm) Thyromental Distance: Greater than 3 cm Neck Range of Motion: Full ROM Neck Circumference: Normal Teeth Condition: Normal Dentition ASA Classification ASA Score: ASA 2 Emergency Case?: No NPO Status NPO Status: NPO Clears >2 hours, Solids >8 hours Status Status: Negative HCG Anesthesia Plan Resuscitation Status: Full Code Anesthesia Technique: General Anesthesia Airway Planned: LMA Monitors Used: Standard Monitors
[2023-02-14] MEDS: PIPERACILLIN/TAZO 3.375 GM in Normal Saline 50 ML IVPB ×2 (12:13→21:07)
[2023-02-14] MEDS: Bupivacaine LIPOSOME/PF 133 MG/10 ML VIAL IJ (12:44)
[2023-02-14] MEDS: Bupivacaine 0.25% Pres-Free 30 ML VIAL (12:54)
--- NOTE | 2023-02-14 13:08 | W.PM.OP ---
Date of service: 02/14/23 Time of Service: 13:08 Operative Note Operative Note DATE OF PROCEDURE: 02/14/23 PRE-OP DIAGNOSIS: recurrent arnold-rectal abscess - 3 oclock position. Tracking up into the vagina POST-OP DIAGNOSIS: same PROCEDURE: I&D SURGEON: Iesha Dao ANESTHESIA TYPE: Local By Surgeon and General LMA/ETT Refer to Anesthesia Record ESTIMATED BLOOD LOSS: 5 PATHOLOGY: other COMPLICATIONS: None Patient was transported to: PACU Patient's condition: stable Procedure Description: Patient is a 38-year-old female with a history of a previous perirectal abscess and presents to the ER with a new perirectal abscess. Patient denies trauma/straining to move her bowels. Informed consent is obtained explaining risks and benefits of procedure including but not limited to bleeding/infection, pneumonia, blood clots, anesthesia, chronic pain or numbness, damage to sphincters including stenosis or loss of control, pain, need for packing and dressing changes, need for further surgery, and other on for told complications. Patient brought to the operating room suite placed position anesthesia is administered per the department of anesthesia. The patient is then placed into stirrups. Patient prepped draped you sterile fashion using a Betadine scrub solution. Timeout is done. Exam under anesthesia was performed. Patient's had a previous perirectal abscess at the 3 o'clock position with fistulotomy. The current abscess is at the 5 o'clock position in the vagina. This does appear to be a recurrent perirectal abscess that is tracked up into the vagina and does communicate with the old abscess. 20 cc of quarter percent Marcaine plain was used for local anesthesia. 18-gauge needle was used to aspirate the abscess through the vagina at the 5 o'clock position. 3 cc purulent drainage is found. Quarter inch mallory is made with a number 15 blade. Again another 20 cc of purulent material was drained. Is probed. Indicated does communicate to the previous abscess site. Is irrigated with a liter saline. There is minimal bleeding noted. The wound cavity is then infiltrated with 10 cc of Exparel. It is packed with quarter percent plain gauze. Sterile dressing is applied. Patient helped to multiple complication and transferred to recovery room in stable condition.
--- NOTE | 2023-02-14 14:03 | W.ANESPOSTOP ---
Postoperative Evaluation Date, Time and Location Date Performed: 02/14/23 Time Performed: 13:58 Patient Location: PACU Vital Signs Most Recent Imported Vital Signs: Most Recent Vital Signs Temp Pulse Resp BP Pulse Ox 36.6 C 75 13 101/55 L 98 02/14/23 13:54 02/14/23 13:54 02/14/23 13:54 02/14/23 13:54 02/14/23 13:54 Pain Score Most Recent Pain Score: Most Recent Pain Score Pain Level 0 02/14/23 13:54 Assessment Mental Status: Awake (Alert & Oriented to Patient Baseline) Airway and Respiratory Function: Patent airway with normal (patient baseline) respiratory exam Cardiovascular Function: Hemodynamically Stable Hydration Status: Adequately Hydrated Nausea & Vomiting: No Nausea or Vomiting Pain: Pt. Denies Any Pain Peripheral Nerve Block: Patient did not receive a nerve block
[2023-02-14] MEDS: Acetaminophen 500 MG TAB 1000 MG PO ×2 (14:42→19:17)
[2023-02-14] MEDS: Enoxaparin 40 MG/0.4 ML SYR SC (15:01)
[2023-02-14] MEDS: Lactated Ringers 1,000 ML 75 ML IV (16:17)
--- NOTE | 2023-02-14 16:49 | W.PM.PROGNOT ---
Date of Service Date of service: 02/14/23 Time of Service: 17:01 Assessment and Plan Assessment and plan (1) Vycekjm-qi-tyt: Status: Acute Assessment and plan: The patient is doing well post-op. Their pain is well controlled. They are having no nausea or vomiting. The pt is not having any chest pain or SOB, productive cough; no calf pain or swelling. The pt is making good urine. The pt pain is adequately controlled. The case was discussed with nursing and patient?s progress reviewed. All of the pt's home medications were addressed and adjusted accordingly for their oral intact status. HEENT: no jaundice. no eye pain/drainage/redness/swelling. Mild sore throat Cardio- NSR no chest pain, BP stable. Pulm: no sob or productive cough. no hemoptysis Incision- clean/dry. Dressing intact no excessive bleeding or drainage I discussed with the patient and/or there family about the findings in surgery and the pt's progress. We reviewed expectations for progress in the hospital; what the pt could expect for recovery time and length of stay. We discussed the importance of walking and pulmonary toilet to avoid blood clots and pneumonia. Continue current plans for pulmonary toilet, GI and DVT prophylaxis. We shall continue the current plan for pain management as it is at an appropriate level, and working well for the pt. Appropriate measures will be taken for constipation prevention, and this was also reviewed with the pt. The wound care plan was reviewed with nursing as well. _Zosyn -wet to dry packing refer to [facility] [place] Objective Last Vital Signs Temp 37.3 C 02/14/23 16:00 Pulse 87 02/14/23 16:00 Resp 19 02/14/23 16:00 BP 108/70 02/14/23 16:00 Pulse Ox 99 02/14/23 16:00 Laboratory Results - last 24 hr 02/13/23 02/13/23 02/13/23 21:40 21:40 22:15 WBC 12.68 H RBC 4.10 Hgb 12.6 Hct 37.2 MCV 91 MCH 30.7 MCHC 33.9 RDW 12.3 Plt Count 199 MPV 10.4 Immature Gran % 0.4 Neutrophils % 63.9 Lymphocytes % 25.2 Monocytes % 8.3 Eosinophils % 1.9 Basophils % 0.3 Nucleated RBC % 0.0 Absolute Neutrophils 8.10 H Absolute Lymphocytes 3.20 Absolute Monocytes 1.05 H Absolute Eosinophils 0.24 Absolute Basophils 0.04 Sodium 136 Potassium 3.2 L Chloride 103 Carbon Dioxide 28.4 Anion Gap 4.6 BUN 16 Creatinine 1.0 Est GFR (CKD-EPI 2020) 74.88 Glucose 109 H Calcium 8.7 Magnesium 2.1 Total Bilirubin 0.2 AST 8 L ALT 14 Alkaline Phosphatase 79 Total Protein 7.2 Albumin 3.5 Urine Color Yellow Urine Clarity Clear Urine pH 6.5 Ur Specific [place] >= 1.030 H Urine Protein Trace H Urine Ketones Negative Urine Blood Negative Urine Nitrite Negative Urine Bilirubin Negative Urine Urobilinogen 0.2 Ur Leukocyte Esterase Negative Urine RBC 0-2 Urine WBC 0-2 Ur Epithelial Cells Moderate Urine Crystals Negative Urine Bacteria Rare Urine Casts Negative Urine Mucus Trace Ur Culture Indicated? No/Sq. Contamination Urine Glucose Negative Time Spent with Patient Time Spent with Patient: 25-34 minutes Time was spent: preparing to see the patient(eg.review tests), obtaining and/or reviewing separately otained hiistory, ordering medications,tests, procedures, referring, communicating with other health director of health care marketing, indepentently interpreting results, counseling the patient and care coordination
[2023-02-14] MEDS: Ketorolac 15 MG/ML VIAL IVP (19:17)
[2023-02-15] VITALS (14 sets, daily range): BP systolic 119–135; BP diastolic 70–78; PULSE 72–105; RESP 16–24; TEMP 36.7–39.9; O2SAT 95–100
[2023-02-15] MEDS: Acetaminophen 500 MG TAB 1000 MG PO ×4 (02:53→19:10)
[2023-02-15] MEDS: Ketorolac 15 MG/ML VIAL IVP ×4 (02:53→19:10)
[2023-02-15] MEDS: PIPERACILLIN/TAZO 3.375 GM in Normal Saline 50 ML IVPB ×2 (02:53→07:26)
--- NOTE | 2023-02-15 08:52 | W.PM.PROGNOT ---
Date of Service Date of service: 02/15/23 Time of Service: 08:53 Assessment and Plan Assessment and plan (1) Kcupdkr-dk-lhp: Status: Acute Assessment and plan: POD #1 s/p I&D of arnold-recetal abscess Continue Zoysn will transition to PO for d/c Packing will be removed later today. No nausea, vomiting, fevers or chills [facility] [place] referral will be sent I saw and examined Vita, and agree with the note started by Kaci. Through the morning, she was feeling pretty good. Pain was reasonably well controlled. After this, she did develop some fevers, and was seen again by Dr. Dao. Details can be found in a separate note from Dr. Dao Subjective Subjective Interval history since last seen: Arrive with Vita resting comfortably. She expresses having a sore uvula, it feels big and i keep choking on it. She describes her perineal discomfort as 1/10PL. she states she was not able to get any sleep last night and is eager to return home. Exam Const General: cooperative, healthy appearing and comfortable Orientation: alert and oriented x3 Resp Effort & Inspection: normal respiratory effort, no audible wheezes and no cough Objective Last Vital Signs Temp 36.7 C 02/15/23 07:05 Pulse 90 02/15/23 07:05 Resp 18 02/15/23 07:05 BP 119/73 02/15/23 07:05 Pulse Ox 98 02/15/23 07:05 Time Spent with Patient Time Spent with Patient: <25 minutes Time was spent: indepentently interpreting results and counseling the patient
[2023-02-15] MEDS: Normal Saline Flush 10 ML SYR IVP ×3 (08:54→14:34)
[2023-02-15] MEDS: Lactated Ringers 1,000 ML 100 ML IV ×2 (12:43→23:54)
[2023-02-15] MEDS: MORPHine 2 MG/ML SYR IVP (13:01)
[2023-02-15] MEDS: LORazepam 2 MG/ML VIAL 0.5 MG IVP (13:02)
[2023-02-15 13:10] LABS: Abs Immature Grans 0.06 10^3/uL (0.0-0.06); Absolute Basophil Count 0.03 10^3/uL (0.0-0.2); Absolute Eosinophil Count 0.03 10^3/uL (0.0-0.7); Absolute Monocyte Count 0.37 10^3/uL (0.1-0.8); Absolute Neutrophil Count 6.46 10^3/uL (1.2-6.7); Basophils % 0.4; Eosinophils % 0.4; HCT 36.1 % (36.0-46.0); HGB 12.4 g/dL (11.2-15.7); Immature Grans % 0.8; Lymphocytes % 7.9; MCH 31.1 pg (27.0-33.0); MCHC 34.3 % (32.0-36.0); MCV 91 fL (80-95); MPV 10.6 fL (8.0-11.0); Monocytes % 4.9; Neutrophils % 85.6; Platelet Count 147 10^3/uL (130-400); RBC 3.99 10^6/uL (3.93-5.22); RDW 12.1 % (11.7-14.6); RDW-SD 40.5 fL; WBC 7.55 10^3/uL (4.4-10.8)
[2023-02-15 13:41] LABS: D-Dimer 711 ng/mlFEU (<500)
--- NOTE | 2023-02-15 13:41 | W.PM.PROGNOT ---
Date of Service Date of service: 02/15/23 Time of Service: 13:41 Assessment and Plan Assessment and plan (1) [id number]: Status: Acute (2) Perianal abscess: Status: Acute (3) Asthma: Subjective Subjective Interval history since last seen: Called to see patient by nursing. Patient complaining of shaking chills and high fever of one 1.1. CBC with differential was normal. CRP 6.8. Gram stain shows many gram-positive's and gram-negative's. Blood cultures are still pending. Patient is not having any pain. She denies any chest pain or shortness of breath. She denies any pain or burning when she urinates. She denies any pain or swelling. She did have loose bowels this morning but she has also been receiving MiraLAX. Otherwise she has been tolerating p.o.'s not having any abdominal pain. She does not have any thrush. Packing on the incision is changed today. There is significant decrease edema and erythema. The wound is clean/no granulation tissue yet. packing is removed and replaced with plain quarter inch packing. There is minimal pinkish drainage. Will order home health as well for packing and dressing changes Blood cultures were ordered D-dimer is pend Zosyn discontinued and meropenem started we will keep the patient overnight for continued observation and see how she is feeling in a.m. Discussed with patient, her and nursing. - Objective Last Vital Signs Temp 38.8 C H 02/15/23 12:36 Pulse 96 H 02/15/23 12:36 Resp 19 02/15/23 12:36 BP 123/78 02/15/23 12:36 Pulse Ox 100 02/15/23 12:36 Laboratory Results - last 24 hr 02/15/23 02/15/23 02/15/23 12:35 12:50 12:50 WBC 7.55 RBC 3.99 Hgb 12.4 Hct 36.1 MCV 91 MCH 31.1 MCHC 34.3 RDW 12.1 Plt Count 147 MPV 10.6 Immature Gran % 0.8 Neutrophils % 85.6 Lymphocytes % 7.9 Monocytes % 4.9 Eosinophils % 0.4 Basophils % 0.4 Nucleated RBC % 0.0 Absolute Neutrophils 6.46 Absolute Lymphocytes 0.60 L Absolute Monocytes 0.37 Absolute Eosinophils 0.03 Absolute Basophils 0.03 D-Dimer C-Reactive Protein Cancelled 6.80 H 02/15/23 12:50 WBC RBC Hgb Hct MCV MCH MCHC RDW Plt Count MPV Immature Gran % Neutrophils % Lymphocytes % Monocytes % Eosinophils % Basophils % Nucleated RBC % Absolute Neutrophils Absolute Lymphocytes Absolute Monocytes Absolute Eosinophils Absolute Basophils D-Dimer 711 H C-Reactive Protein Time Spent with Patient Time Spent with Patient: <25 minutes Time was spent: preparing to see the patient(eg.review tests), obtaining and/or reviewing separately otained hiistory, ordering medications,tests, procedures, referring, communicating with other health health care marketing manager, indepentently interpreting results, counseling the patient and care coordination
--- NOTE | 2023-02-15 13:46 | PDOC.HHF2F_ITS ---
Home Health Referral Home Health Orders Clinical synopsis of why skilled professionals are needed: perirectal abscess w/ extension into vagina. Pt will require daily packing/dressing changes Medical diagnosis necessitation home health referral: perirectal abscess w/ extension into vagina. Pt will require daily packing/dressing changes Registered Nurse: Check all that apply Instruct on new or changed medication(s)/assess compliance: Ordered Assess for exacerbation of medical condition, instruct patient/caregivers on signs and symptoms to report for early detection: Ordered Assess wound for signs and symptoms of infection, instruct on wound care and/or provide skilled wound care consisting of: - Flushed with sterile saline -Pack wound with wet-to-dry quarter inch packing daily Home Bound Status Assistance of another person (Describe assistance and medical necessity): pain/abscess/wound Patient has a condition such that leaving home is medically contraindicated (Describe): pain/abscess /wound Describe why leaving home would require a considerable and taxing effort: Side effects from pain medication (sedation/drowsiness), Requires frequent rest periods and Requires alternative accommodations: Encounter Date and Reason: I certify that a FTF encounter for this patient was performed on February 15, 2023 and that such encounter was related to the primary reason the patient requires home health services. The encounter was conducted in the following manner: * By me as the certifying physician, PROP MAKER, PA or * By an inpatient physician, PROP MAKER or PA during an inpatient stay who communicated findings to me, Certification And Authentication I certify that I composed the above information based on my clinical judgment relating to this patient's medical condition and, if applicable, clinical findings communicated to me by the NPP or inpatient physician who performed the FTF encounter. Name of Provider that will be monitoring home health services: kenney
[2023-02-15 14:22] LABS: Chlamydia Result Negative (Negative); GC Result Negative (Negative)
--- NOTE | 2023-02-15 14:33 | PDOC.CMPRO ---
Date of service: 02/15/23 Time of Service: 14:33 Care Management Progress Note Progress Note Text Progress Note Text: S/O: Vita continues to require close monitoring and antibiotic therapy with adjustments following I&D of arnold-recetal abscess. Anticipate, she will discharge home with new [facility] RN services for daily packing and dressing changes, when medically cleared by Surgical provider. CM will continue to follow. 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 She will follow up with community providers and her discharge plan of care as instructed. She will be driven home via private vehicle with . CM will follow.
[2023-02-15] MEDS: Enoxaparin 40 MG/0.4 ML SYR SC (14:34)
[2023-02-15] MEDS: MEROPENEM 1 GM in Normal Saline 100 ML IVPB ×2 (14:35→22:00)
[2023-02-15 20:43] LABS: Source Nasopharynx
[2023-02-15 21:12] LABS: COVID-19 PCR Negative (Negative)
[2023-02-16] MEDS: Acetaminophen 500 MG TAB 1000 MG PO ×4 (01:33→19:15)
[2023-02-16] MEDS: Ketorolac 15 MG/ML VIAL IVP ×4 (02:20→19:16)
[2023-02-16 02:33] VITALS: TEMP 38.3
[2023-02-16 04:02] VITALS: BP 116/72; PULSE 72; RESP 15; TEMP 38.3; O2SAT 96
[2023-02-16] MEDS: MEROPENEM 1 GM in Normal Saline 100 ML IVPB ×2 (06:36→13:43)
[2023-02-16] MEDS: HYDROmorphone 2 MG/ML SYR 1 MG IVP (07:48)
[2023-02-16] MEDS: Normal Saline Flush 10 ML SYR IVP ×3 (07:48→13:42)
[2023-02-16] MEDS: Polyethylene Glycol 3350 17 GM PACKET PO (07:49)
[2023-02-16 07:55] VITALS: BP 122/77; PULSE 62; RESP 18; TEMP 36.2; O2SAT 97
--- NOTE | 2023-02-16 09:39 | W.PM.PROGNOT ---
Date of Service Date of service: 02/16/23 Time of Service: 09:39 Assessment and Plan Assessment and plan (1) [id number]: Status: Acute Assessment and plan: Microbiology just turned positive this morning, growing an E. coli isolate. Susceptibilities are not back yet. Overall her fever curve is improved over the past few hours. I will see what her white blood cell count CRP are today. We may be able to transition over from intravenous antibiotics to an enteral regimen, and see if that augments the fever curve at all. Subjective Subjective Interval history since last seen: Vita had multiple fevers overnight. She said she felt terrible at that time. She denied any nausea or vomiting. Pain was controlled throughout, but she felt exhausted and rigors. She is feeling much better this morning. Exam GI Other: I remove the vaginal packing, and the wound looks clean and healthy. I do not see any signs of erythema. I gently repacked it with quarter inch plain packing Objective Last Vital Signs Temp 100.9 F H 02/16/23 04:02 Pulse 72 02/16/23 04:02 Resp 15 02/16/23 04:02 BP 116/72 02/16/23 04:02 Pulse Ox 96 02/16/23 04:02 Laboratory Results - last 24 hr 02/13/23 02/15/23 02/15/23 23:15 12:35 12:50 WBC RBC Hgb Hct MCV MCH MCHC RDW Plt Count MPV Immature Gran % Neutrophils % Lymphocytes % Monocytes % Eosinophils % Basophils % Nucleated RBC % Absolute Neutrophils Absolute Lymphocytes Absolute Monocytes Absolute Eosinophils Absolute Basophils D-Dimer C-Reactive Protein Cancelled 6.80 H Chlamydia DNA Probe Negative Chlamydia/GC DNA Source Not Applicable COVID-19 Source SARS-CoV-2 (PCR) N.gonorrhoeae DNA Probe Negative 02/15/23 02/15/23 02/15/23 12:50 12:50 20:35 WBC 7.55 RBC 3.99 Hgb 12.4 Hct 36.1 MCV 91 MCH 31.1 MCHC 34.3 RDW 12.1 Plt Count 147 MPV 10.6 Immature Gran % 0.8 Neutrophils % 85.6 Lymphocytes % 7.9 Monocytes % 4.9 Eosinophils % 0.4 Basophils % 0.4 Nucleated RBC % 0.0 Absolute Neutrophils 6.46 Absolute Lymphocytes 0.60 L Absolute Monocytes 0.37 Absolute Eosinophils 0.03 Absolute Basophils 0.03 D-Dimer 711 H C-Reactive Protein Chlamydia DNA Probe Chlamydia/GC DNA Source COVID-19 Source Nasopharynx SARS-CoV-2 (PCR) Negative N.gonorrhoeae DNA Probe Time Spent with Patient Time Spent with Patient: 25-34 minutes Time was spent: preparing to see the patient(eg.review tests), indepentently interpreting results and counseling the patient
[2023-02-16 10:10] LABS: HCT 36.5 % (36.0-46.0); HGB 12.2 g/dL (11.2-15.7); MCH 30.8 pg (27.0-33.0); MCHC 33.4 % (32.0-36.0); MCV 92 fL (80-95); MPV 10.6 fL (8.0-11.0); Platelet Count 143 10^3/uL (130-400); RBC 3.96 10^6/uL (3.93-5.22); RDW 12.2 % (11.7-14.6); RDW-SD 41.7 fL; WBC 4.53 10^3/uL (4.4-10.8)
[2023-02-16 10:24] LABS: C-Reactive Protein 10.56 mg/dL (0.0-0.3)
[2023-02-16] MEDS: Lactated Ringers 1,000 ML 100 ML IV (10:54)
[2023-02-16 11:39] VITALS: BP 128/87; PULSE 63; RESP 19; TEMP 36.3; O2SAT 98
[2023-02-16] MEDS: Enoxaparin 40 MG/0.4 ML SYR SC (13:43)
[2023-02-16] MEDS: Normal Saline 500 ML 100 ML IV (13:43)
[2023-02-16 20:25] VITALS: BP 125/80; PULSE 62; RESP 18; TEMP 36.2; O2SAT 99
--- NOTE | 2023-02-16 23:00 | RT.EKG_ITS ---
APPROVED REPORT Exam: Resting ECG Reason for Exam: chest pain Patient Location: I HR:54 bpm ECG Measurements Heart Rate 54 AXIS MA 150 P 69 QRSd 97 QRS 44 QT 431 T 21 QTc 409 Conclusion Sinus rhythm...normal P axis, V-rate 50- 99 Normal Electrocardiogram
--- NOTE | 2023-02-16 23:10 | DI.RAD_ITS ---
Exam(s) XR CHEST 1V IN DI DEPT EXAM: XR CHEST 1V IN DI DEPT CLINICAL HISTORY: chest pain TECHNIQUE: 2D digital imaging was performed. COMPARISON: CR XR CHEST 2V PA LATERAL from 06/11/2022 FINDINGS: LUNGS: Clear. No pleural abnormality seen. HEART: Normal size. AORTA: Normal diameter. BONES: Unremarkable for age. Soft tissues: Unremarkable. IMPRESSION: No acute findings. DATA REPOSITORY: RADIATION DOSE DELIVERED:
[2023-02-16 23:36] LABS: Abs Immature Grans 0.04 10^3/uL (0.0-0.06); Absolute Basophil Count 0.03 10^3/uL (0.0-0.2); Absolute Eosinophil Count 0.17 10^3/uL (0.0-0.7); Absolute Lymphocyte Count 1.76 10^3/uL (1.2-3.4); Absolute Monocyte Count 0.53 10^3/uL (0.1-0.8); Absolute Neutrophil Count 2.69 10^3/uL (1.2-6.7); Basophils % 0.6; Eosinophils % 3.3; HGB 11.3 g/dL (11.2-15.7); Immature Grans % 0.8; Lymphocytes % 33.7; MCH 30.2 pg (27.0-33.0); MCHC 33.2 % (32.0-36.0); MCV 91 fL (80-95); MPV 10.2 fL (8.0-11.0); Monocytes % 10.2; Neutrophils % 51.4; Platelet Count 138 10^3/uL (130-400); RBC 3.74 10^6/uL (3.93-5.22); RDW 12.1 % (11.7-14.6); RDW-SD 40.5 fL; WBC 5.22 10^3/uL (4.4-10.8)
[2023-02-16 23:54] LABS: ALT 62 U/L (14-59); AST 39 U/L (15-37); Albumin 2.7 g/dL (3.4-5.0); Alkaline Phosphatase 71 U/L (46-116); Anion Gap 8.7 mmol/L (3-11); BUN 10 mg/dL (7-18); Bilirubin, Total 0.1 mg/dL (0.2-1.0); CO2 25.3 mmol/L (21.0-32.0); CREATININE 0.8 mg/dL (0.55-1.02); Calcium 8.4 mg/dL (8.5-10.1); Chloride 105 mmol/L (98-107); Estimated GFR 97.87 (mL/min/1.73m2); Glucose 105 mg/dL (74-106); Magnesium 1.9 mg/dL (1.8-2.4); Potassium 3.8 mmol/L (3.5-5.1); Sodium 139 mmol/L (136-145); Total Protein 6.2 g/dL (6.4-8.2); Troponin I < 50 ng/L (<or=60)
[2023-02-16] MEDS: Normal Saline - Diluent 50 ML VIAL IJ (23:58)
[2023-02-16] MEDS: Omnipaque 350 MG/ML 100 ML BTL IJ (23:58)
--- NOTE | 2023-02-17 | DI.CT_ITS ---
Exam(s) CT CHEST PE CTA EXAM: CT CHEST PE CTA CLINICAL HISTORY: Chest pain with shortness of breath. TECHNIQUE: Imaging Protocol: Axial CT angiography was performed with multi-slice acquisition and mu lti-planar reconstructions as well as axial, coronal and sagittal MIP reconstructions. CONTRAST MATERIAL: Intravenous: Omnipaque 350 Contrast volume:100 ml COMPARISON: CT CT ABDOMEN PELVIS W from 02/13/2023 FINDINGS: Pulmonary Arteries: No evidence of filling defect to suggest pulmonary emboli. Tracheobronchial tree: Patent where visualized. Mediastinum and Trish: No dominant adenopathy or fluid collection. Pulmonary parenchyma: No consolidation or dominant measurable mass. Dependent changes and mild basila r atelectasis. A small patchy infiltrates in the lingula and right middle lobe. Pleura: Tiny right pleural effusion. Heart: The heart is not dilated. No coronary artery calcifications are seen. Aorta: Thoracic aorta non-dilated. No aneurysm. No dissection. Upper abdomen: Unremarkable. Bones: Unremarkable for age. Tubes, Catheters, and Lines: None IMPRESSION: No evidence of pulmonary embolism. Small patchy infiltrates in the lingula and right middle lobe. Evaluation of the lungs somewhat limi hemanth due to expiratory changes. RADIATION DOSE DELIVERED: 509.23mGy.cm Total DLP DATA REPOSITORY: All CT scans at this facility are submitted to the National Radiology Data Registry (NRDR) Dose Index Registry (DIR) with the [employer] (ACR). RADIATION OPTIMIZATION: All CT scans at this facility use at least one of these dose optimization te chniques: automated exposure control; mA and/or kV adjustment per patient size (includes targeted exa ms where dose is matched to clinical indication); or iterative reconstruction.
[2023-02-17 00:05] LABS: D-Dimer 2234 ng/mlFEU (<500)
[2023-02-17 00:13] VITALS: BP 131/91; PULSE 54; RESP 18; TEMP 36.4; O2SAT 99
[2023-02-17 00:13] LABS: Bilirubin Negative (Negative); Blood Moderate (Negative); Clarity Clear (Clear); Epithelial Cells Few HPF (Negative); Glucose Negative (Negative); Ketones Negative (Negative); Leukocyte Esterase Small (Negative); Nitrite Negative (Negative); Urobilinogen 0.2 mg/dL (Up to 0.2)
[2023-02-17 00:14] LABS: Bacteria Few HPF (Negative); C & S Indicated? Yes; Casts Negative LPF (Negative); Crystals Negative HPF (Negative); Mucus Negative (Negative)
[2023-02-17 00:16] LABS: HCG Qual (Urine) Negative
[2023-02-17] MEDS: MORPHine 2 MG/ML SYR IVP ×2 (00:24→02:28)
[2023-02-17] MEDS: Normal Saline Flush 10 ML SYR IVP ×2 (00:25→08:29)
--- NOTE | 2023-02-17 01:26 | DI.VRAD_ITS ---
PROCEDURE INFORMATION: Exam: XR Chest Exam date and time: 02/17/2023 12:19 AM Age: 38 years old Clinical indication: Chest pain TECHNIQUE: Imaging protocol: Radiologic exam of the chest. Views: 1 view. COMPARISON: CR XR CHEST 2V PA LATERAL 06/11/2022 4:08 PM FINDINGS: Lungs: No alveolar infiltrate. Pleural spaces: No pleural fluid collection. No pneumothorax. Heart/Mediastinum: Normal heart size. Bones/joints: Unremarkable for patient age. IMPRESSION: No active pulmonary disease. No acute change compared to 06/11/2022. Dictated and Authenticated by: Remington Ball MD. Ordering:CARLOS A Rosado MD
--- NOTE | 2023-02-17 01:55 | DI.VRAD_ITS ---
PROCEDURE INFORMATION: Exam: CTA Chest With Contrast Exam date and time: 02/17/2023 1:11 AM Age: 38 years old Clinical indication: Chest pain, elevated d-dimer TECHNIQUE: Imaging protocol: Computed tomographic angiography of the chest with contrast. Exam focused on the arteries. 3D rendering (Not supervised by radiologist): MIP and/or 3D reconstructed images were created by the technologist. Contrast material: OMNIPAQUE 350; Contrast volume: 100 ml; Contrast route: INTRAVENOUS (IV); COMPARISON: CR XR CHEST 1V IN DI DEPT 02/17/2023 12:19 AM FINDINGS: Pulmonary arteries: No evidence of acute pulmonary embolism. Aorta: Normal caliber thoracic aorta without dissection or aneurysm. Lungs: Small patches of infiltrate in the inferior right middle lobe and in the inferior lingula. Minimal compressive atelectasis within each posterior lung base. Pleural spaces: Trace bilateral pleural fluid. No pneumothorax. Heart: No right ventricular strain. No pericardial effusion. Lymph nodes: No enlarged lymph nodes. Bones/joints: Unremarkable for patient age. Soft tissues: Unremarkable. IMPRESSION: 1. No evidence of acute pulmonary embolism. 2. Small patches of infiltrate in the inferior right middle lobe and in the inferior lingula. 3. Minimal compressive atelectasis within each posterior lung base. 4. Trace bilateral pleural fluid. Dictated and Authenticated by: Remington Ball MD. Ordering:CARLOS A Rosado MD
[2023-02-17] MEDS: Ketorolac 15 MG/ML VIAL IVP ×2 (02:25→08:29)
[2023-02-17] MEDS: Acetaminophen 500 MG TAB 1000 MG PO ×2 (02:25→08:29)
[2023-02-17] MEDS: Mylanta Suspension 30 ML CUP PO (02:29)
[2023-02-17] MEDS: Lidocaine 2% Viscous 1 ML Solution 10 ML PO (02:36)
[2023-02-17 04:56] VITALS: BP 111/70; PULSE 56; RESP 18; TEMP 36.3; O2SAT 100
--- NOTE | 2023-02-17 04:58 | NUR.NOTE ---
Nursing Note: This RN entered patient room at 2330 for reassessment/medication administration. Patient mentioned to this RN I had an episode of chest pain a bit ago, it lasted for about 30 minutes. It felt like palpitations/throbbing pain and radiated to my back. It happened at about 2030. Pt denied chest pain at that time. VS were WNL, patient education provided to patient on importance of reporting symptoms of chest pain to nursing staff. Pt endorsed tenderness to LUQ, bowel sounds active, abdomen soft to palpation. CC notified of chest pain/abdominal discomfort. 0000: Patient rang, endorsed chest pain that felt crushing. CC notified, MD made aware, STAT labs drawn/EKG taken, CTA of chest/chest x-ray ordered. 0100: New 18G PIV placed in L AC for CT, pt experienced intermittent episodes of shortness of breath/chest pain throughout testing. Patient maintained oxygen saturations >95% through episodes, patient heart rate notably dropped from 80-85 BPM to 50-55 BPM during episodes. Manual BP 148/88. made aware. 0200: Continuous telemetry monitoring ordered and placed on patient. PRN morphine ordered 2mg IVP Q1, administered x2. One time Mylanta/viscous lidocaine ordered and administered per MAR for LUQ pain. Call mejia within reach, will continue to monitor closely for acute changes.
[2023-02-17 07:01] LABS: HCT 32.8 % (36.0-46.0); MCH 30.4 pg (27.0-33.0); MCHC 33.5 % (32.0-36.0); MCV 91 fL (80-95); MPV 11.3 fL (8.0-11.0); Platelet Count 138 10^3/uL (130-400); RBC 3.62 10^6/uL (3.93-5.22); RDW 12.2 % (11.7-14.6); RDW-SD 40.7 fL; WBC 5.14 10^3/uL (4.4-10.8)
[2023-02-17 07:39] LABS: C-Reactive Protein 7.05 mg/dL (0.0-0.3)
[2023-02-17 07:45] VITALS: BP 127/83; PULSE 64; RESP 16; TEMP 36; O2SAT 98
[2023-02-17] MEDS: Amoxicillin 875/Clav. 125 TAB PO (08:29)
--- NOTE | 2023-02-17 10:01 | PGE_ITS ---
Date of Service Date of service: 02/17/23 Time of Service: 10:01 Assessment and Plan Assessment and plan (1) Frejxbo-[id number]: Status: Acute Assessment and plan: Based on the small amount of packing in the wound, and the frequency with which it is falling out, as well as the fact that this is pansensitive E. coli that appears clinically well drained, I think it is fine to discontinue the active packing at this point. We will plan to discharge home with Augmentin, and follow-up in the office this week. Subjective Subjective Interval history since last seen: She had some substernal chest pain that radiated to the left upper quadrant last night. EKG was negative and CT angiogram ruled out pulmonary embolism. She had some mild improvement with Mylanta as well as viscous lidocaine. Hemodynamics were all normal. This morning, white blood cell count remains normal, and C- reactive protein is downtrending. Antibiotics were switched from intravenous to enteral because of pansensitive E. coli in the wound. Exam GI Other: Mild left upper quadrant discomfort with deep palpation Objective Last Vital Signs Temp 97.3 F L 02/17/23 04:56 Pulse 56 L 02/17/23 04:56 Resp 18 02/17/23 04:56 BP 111/70 02/17/23 04:56 Pulse Ox 100 02/17/23 04:56 Laboratory Results - last 24 hr 02/16/23 02/16/23 02/16/23 09:38 09:38 23:30 WBC 4.53 RBC 3.96 Hgb 12.2 Hct 36.5 MCV 92 MCH 30.8 MCHC 33.4 RDW 12.2 Plt Count 143 MPV 10.6 Immature Gran % Neutrophils % Lymphocytes % Monocytes % Eosinophils % Basophils % Nucleated RBC % Absolute Neutrophils Absolute Lymphocytes Absolute Monocytes Absolute Eosinophils Absolute Basophils D-Dimer Sodium 139 Potassium 3.8 Chloride 105 Carbon Dioxide 25.3 Anion Gap 8.7 BUN 10 Creatinine 0.8 Est GFR (CKD-EPI 2020) 97.87 Glucose 105 Calcium 8.4 L Magnesium 1.9 Total Bilirubin 0.1 L AST 39 H ALT 62 H Alkaline Phosphatase 71 Troponin I < 50 C-Reactive Protein 10.56 H Total Protein 6.2 L Albumin 2.7 L Urine Color Urine Clarity Urine pH Ur Specific [place] Urine Protein Urine Ketones Urine Blood Urine Nitrite Urine Bilirubin Urine Urobilinogen Ur Leukocyte Esterase Urine RBC Urine WBC Ur Epithelial Cells Urine Crystals Urine Bacteria Urine Casts Urine Mucus Ur Culture Indicated? Urine Glucose Urine HCG, Qual 02/16/23 02/16/23 02/16/23 23:30 23:30 23:42 WBC 5.22 RBC 3.74 L Hgb 11.3 Hct 34.0 L MCV 91 MCH 30.2 MCHC 33.2 RDW 12.1 Plt Count 138 MPV 10.2 Immature Gran % 0.8 Neutrophils % 51.4 Lymphocytes % 33.7 Monocytes % 10.2 Eosinophils % 3.3 Basophils % 0.6 Nucleated RBC % 0.0 Absolute Neutrophils 2.69 Absolute Lymphocytes 1.76 Absolute Monocytes 0.53 Absolute Eosinophils 0.17 Absolute Basophils 0.03 D-Dimer 2234 H Sodium Potassium Chloride Carbon Dioxide Anion Gap BUN Creatinine Est GFR (CKD-EPI 2020) Glucose Calcium Magnesium Total Bilirubin AST ALT Alkaline Phosphatase Troponin I C-Reactive Protein Total Protein Albumin Urine Color Yellow Urine Clarity Clear Urine pH 7.0 Ur Specific Overton 1.020 Urine Protein Negative Urine Ketones Negative Urine Blood Moderate H Urine Nitrite Negative Urine Bilirubin Negative Urine Urobilinogen 0.2 Ur Leukocyte Esterase Small H Urine RBC 5-10 H Urine WBC 10-20 H Ur Epithelial Cells Few Urine Crystals Negative Urine Bacteria Few Urine Casts Negative Urine Mucus Negative Ur Culture Indicated? Yes Urine Glucose Negative Urine HCG, Qual Cancelled 02/16/23 02/17/23 02/17/23 23:42 05:38 05:38 WBC 5.14 RBC 3.62 L Hgb 11.0 L Hct 32.8 L MCV 91 MCH 30.4 MCHC 33.5 RDW 12.2 Plt Count 138 MPV 11.3 H Immature Gran % Neutrophils % Lymphocytes % Monocytes % Eosinophils % Basophils % Nucleated RBC % Absolute Neutrophils Absolute Lymphocytes Absolute Monocytes Absolute Eosinophils Absolute Basophils D-Dimer Sodium Potassium Chloride Carbon Dioxide Anion Gap BUN Creatinine Est GFR (CKD-EPI 2020) Glucose Calcium Magnesium Total Bilirubin AST ALT Alkaline Phosphatase Troponin I C-Reactive Protein 7.05 H Total Protein Albumin Urine Color Urine Clarity Urine pH Ur Specific [place] Urine Protein Urine Ketones Urine Blood Urine Nitrite Urine Bilirubin Urine Urobilinogen Ur Leukocyte Esterase Urine RBC Urine WBC Ur Epithelial Cells Urine Crystals Urine Bacteria Urine Casts Urine Mucus Ur Culture Indicated? Urine Glucose Urine HCG, Qual Negative Time Spent with Patient Time Spent with Patient: 25-34 minutes Time was spent: preparing to see the patient(eg.review tests), indepentently interpreting results and counseling the patient
--- NOTE | 2023-02-17 10:03 | DSE_ITS ---
Date of service: 02/17/23 Time of Service: 10:03 DS: Diagnosis Discharge Diagnosis (1) [id number]: Status: Acute Asessment and Plan: Status post incision and drainage with clinical improvement. Discharge Plan Disposition Patient Disposition: Home W/Home Health Services Condition: Good Discharge Details Reason For Visit: Perianal Abscess with Fistula Admit Date/Time: 02/14/23 01:15 Admit Provider: Heather Sherman Attending Provider: Heather Sherman Primary Care Provider: Maddie Bang Hospital Course Hospital Course: Vita is 38 years old, and she comes to the hospital with a painful perineal wound. She underwent transvaginal incision and drainage of a perianal abscess. Initial postoperative course was complicated by fevers of uncertain etiology and chest discomfort. Fever curve normalized, and the work-up for her chest disco mfort ruled out myocardial infarction and pulmonary embolism. This is similar in nature to some episodes that were experienced previously as an outpatient, with a completely negative cardiac work-up. The abscess itself continue to improve each day, and culture data demonstrated pansensitive E. coli. She was switched to Augmentin and discharged home Home Meds and New Rx's Prescriptions: New amoxicillin-pot clavulanate 875-125 mg Tablet 1 tab PO BID Qty: 14 0RF tramadol 50 mg tablet 50 mg PO Q8H PRNQty: 12 0RF Continued albuterol sulfate 90 mcg/actuation Hfa Aerosol Inhaler 2 puff INHALATION Q6H PRN [id number] 1 mg Tablet 1 tab PO DAILY Discharge Instructions Instructions: Anorectal Abscess and Anal Fistula (DC) Additional Instructions: Vita, it was very nice meeting you in the hospital, and I am glad that you are starting to recover from your abscess drainage. Like we talked about in the hospital, the bacteria that grew was something called E. coli. This is extremely common in the area, and the sensitivities against the antibiotics was very reassuring. Clinically you are doing quite well. Hopefully, the continuation of a short course of antibiotics after the drainage will help this heal completely. I will have the office call you on Saturday to schedule an outpatient follow-up visit this week. In the meantime: 1. Obtain a sitz bath from any pharmacy. Soak for 10-15 minutes in warm water, warm water mixed with half a cup of baking soda, or Epson salts after each bowel movement, or up to 5 times per day as needed for pain. 2. Okay to use tylenol and ibuprofen over the counter as needed. I have added a prescription for a medication called tramadol to help with pain that is not controlled with Tylenol and ibuprofen. I would also encourage you to continue with some type of stool softener. This can be an ydaa-fnn-yahgveq product such as MiraLAX or Metamucil some of the pain medications can be a bit constipating, and using a stool softener to help facilitate simple and soft bowel movements will help improve the symptoms. 3.Call the office (or go directly to the emergency room after hours) if you notice any of the following: Develop chills (warm to touch), or if you have a thermometer and your temperature is above 101 Difficulty breathing or difficultly swallowing Persistent vomiting Any bleeding ? exceeding one tablespoon Activity:: Activity as Tolerated Equipment/Supplies:: Sitz bath Diet:: As Tolerated DS: Summary Time Spent with Patient providing and/or coordinating discharge services: Greater than 30 minutes Status at Discharge Functional status at discharge: independent ambulation Overall status at discharge: patient is back to baseline Mental Status: mental status grossly normal Speech and Movement: speech and movement normal Mood: congruent mood Affect: normal affect Exam Psych Mental Status: mental status grossly normal Speech and Movement: speech and movement normal Mood: congruent mood Affect: normal affect DS: Data Vitals/I&O Vitals and I&O: Vital Signs Temperature 97.3 F L 02/17/23 04:56 Temperature Source Tympanic 02/17/23 04:56 Pulse 56 L 02/17/23 04:56 Pulse Rhythm Irregular 02/16/23 20:00 Respiratory Rate 18 02/17/23 04:56 Respiratory Effort Normal, Non-Labored 02/16/23 20:00 Respiratory Depth Normal 02/16/23 20:00 Respiratory Pattern Normal 02/16/23 20:00 Blood Pressure 111/70 02/17/23 04:56 Blood Pressure Position Sitting 02/13/23 19:02 Pulse Oximetry 100 02/17/23 04:56 Respiratory End-tidal CO2 35 02/14/23 13:54 Oxygen Delivery Method Room Air 02/17/23 04:56 Oxygen Flow Rate 0 02/17/23 04:56 Pain Level 3 02/17/23 08:29 Comment Pt. denies pain at this time. 02/16/23 12:30 Intake & Output 02/16/23 02/16/23 02/17/23 11:59 23:59 11:59 Intake Total 2511.667 / 3188.334 676.667 / 3188.334 1283.333 / 1283.333 Output Total 1000 / 1000 Balance 1511.667 / 2188.334 676.667 / 2188.334 1283.333 / 1283.333 Intake: IV 1151.667 / 1588.334 436.667 / 1588.334 733.333 / 733.333 Oral 1360 / 1600 240 / 1600 550 / 550 Output: Urine 1000 / 1000 Other: Urine Color Light Callie Urine Appearance Clear Urine Odor Normal Comment Void x1 in the toilet. Per pt. report, void x1 in the toilet earlier this afternoon. Voiding Methods Toilet Toilet Data Completed and Pending Labs on day of discharge: Labs from last 24 hours 02/17/23 02/17/23 02/16/23 05:38 05:38 23:42 WBC 5.14 RBC 3.62 L Hgb 11.0 L Hct 32.8 L MCV 91 MCH 30.4 MCHC 33.5 RDW 12.2 Plt Count 138 MPV 11.3 H Immature Gran % Neutrophils % Lymphocytes % Monocytes % Eosinophils % Basophils % Nucleated RBC % Absolute Neutrophils Absolute Lymphocytes Absolute Monocytes Absolute Eosinophils Absolute Basophils D-Dimer Sodium Potassium Chloride Carbon Dioxide Anion Gap BUN Creatinine Est GFR (CKD-EPI 2020) Glucose Calcium Magnesium Total Bilirubin AST ALT Alkaline Phosphatase Troponin I C-Reactive Protein 7.05 H Total Protein Albumin Urine Color Urine Clarity Urine pH Ur Specific [place] Urine Protein Urine Ketones Urine Blood Urine Nitrite Urine Bilirubin Urine Urobilinogen Ur Leukocyte Esterase Urine RBC Urine WBC Ur Epithelial Cells Urine Crystals Urine Bacteria Urine Casts Urine Mucus Ur Culture Indicated? Urine Glucose Urine HCG, Qual Negative 02/16/23 02/16/23 02/16/23 23:42 23:30 23:30 WBC 5.22 RBC 3.74 L Hgb 11.3 Hct 34.0 L MCV 91 MCH 30.2 MCHC 33.2 RDW 12.1 Plt Count 138 MPV 10.2 Immature Gran % 0.8 Neutrophils % 51.4 Lymphocytes % 33.7 Monocytes % 10.2 Eosinophils % 3.3 Basophils % 0.6 Nucleated RBC % 0.0 Absolute Neutrophils 2.69 Absolute Lymphocytes 1.76 Absolute Monocytes 0.53 Absolute Eosinophils 0.17 Absolute Basophils 0.03 D-Dimer 2234 H Sodium Potassium Chloride Carbon Dioxide Anion Gap BUN Creatinine Est GFR (CKD-EPI 2020) Glucose Calcium Magnesium Total Bilirubin AST ALT Alkaline Phosphatase Troponin I C-Reactive Protein Total Protein Albumin Urine Color Yellow Urine Clarity Clear Urine pH 7.0 Ur Specific [place] 1.020 Urine Protein Negative Urine Ketones Negative Urine Blood Moderate H Urine Nitrite Negative Urine Bilirubin Negative Urine Urobilinogen 0.2 Ur Leukocyte Esterase Small H Urine RBC 5-10 H Urine WBC 10-20 H Ur Epithelial Cells Few Urine Crystals Negative Urine Bacteria Few Urine Casts Negative Urine Mucus Negative Ur Culture Indicated? Yes Urine Glucose Negative Urine HCG, Qual Cancelled 02/16/23 02/16/23 02/16/23 23:30 09:38 09:38 WBC 4.53 RBC 3.96 Hgb 12.2 Hct 36.5 MCV 92 MCH 30.8 MCHC 33.4 RDW 12.2 Plt Count 143 MPV 10.6 Immature Gran % Neutrophils % Lymphocytes % Monocytes % Eosinophils % Basophils % Nucleated RBC % Absolute Neutrophils Absolute Lymphocytes Absolute Monocytes Absolute Eosinophils Absolute Basophils D-Dimer Sodium 139 Potassium 3.8 Chloride 105 Carbon Dioxide 25.3 Anion Gap 8.7 BUN 10 Creatinine 0.8 Est GFR (CKD-EPI 2020) 97.87 Glucose 105 Calcium 8.4 L Magnesium 1.9 Total Bilirubin 0.1 L AST 39 H ALT 62 H Alkaline Phosphatase 71 Troponin I < 50 C-Reactive Protein 10.56 H Total Protein 6.2 L Albumin 2.7 L Urine Color Urine Clarity Urine pH Ur Specific [place] Urine Protein Urine Ketones Urine Blood Urine Nitrite Urine Bilirubin Urine Urobilinogen Ur Leukocyte Esterase Urine RBC Urine WBC Ur Epithelial Cells Urine Crystals Urine Bacteria Urine Casts Urine Mucus Ur Culture Indicated? Urine Glucose Urine HCG, Qual 02/16/23 23:42 Urine - Reflex from Urine Culture - Pending 02/14/23 12:40 Rectal Anaerobic Culture - Pending Preliminary micro results at discharge 02/14/23 12:40 Abscess Culture - Preliminary Rectal Escherichia coli Gram Positive Cherry,Mixed 02/16/23 23:42 Urine Culture - Pending Urine - Reflex from Ua 02/15/23 13:00 Blood Culture - Preliminary Blood NO GROWTH 24 HOURS 02/15/23 12:50 Blood Culture - Preliminary Blood NO GROWTH 24 HOURS 02/14/23 12:40 Anaerobic Culture - Pending Rectal PFSH All Active Problems Leukocytosis (leucocytosis) (Acute) Gqiqobn-kr-xyl (Acute) Recurrent Fistula (Acute) Bursitis of right knee (Acute) Perianal abscess (Acute) Vaginal delivery (Acute) Palpitations (Acute) Medical History Asthma Asymptomatic bacteriuria antepartum Elbow tendinitis Surgical History History of colonoscopy (~12/2022) History of tonsillectomy and adenoidectomy S/P skin biopsy multiple [id number] all Benign Family History Paternal Grandfather Cancer Paternal Grandmother Cancer Aunt Cancer Depression Uncle Cancer Heart disease Hypertension Mother Depression Hypertension Self Depression Other Alcohol use disorder Social History Smoking/Tobacco Use Status: Never Smoking risk assessment performed?: Yes Alcohol Intake: current Alcohol Intake frequency: a few times a week Drug use: Never Substance use type: does not use Housing: house Current gender identity: female Do you feel safe at home: Yes Do you feel safe in your relationship?: Yes Female Reproductive History Menstrual control method: none History History 1 Para 0 Hx # Term Pregnancies 0 Multiple births 0 Hx # Pregnancies 0 Ectopic pregnancies 0 AB induced 0 Hx Number of Living Children 0 AB spontaneous 0 Time Spent with Patient Time Spent with Patient: <45 minutes Time was spent: preparing to see the patient(eg.review tests), indepentently interpreting results, counseling the patient and care coordination
--- NOTE | 2023-02-17 10:56 | PDOC.CMDIS ---
Date of service: 02/17/23 Time of Service: 10:56 LACE Index Scoring Tool Questions: Length of Stay (in days): 3 Was the patient admitted via the E.D.?: Yes E.D. Visits: 0 Answers: Total Score: 6 Risk of Readmission: Low Risk Care Management Discharge Plan Reason for Hospitalization: Rectal cutaneous fistula, recurrent perirectal abscess Discharge Plan: Vita will return home with new orders for HH RN. Her will drive her home via private vehicle. She will follow up with surgical services, her PCP and discharge plan of care. She is happy to be going home. Patient/Family Education Needs: Review discharge instructions and limitations, discussion of self care needs including ask me three. Services Needed at Discharge: Home Health Care Services (HH RN)
[2023-02-17 11:12] VITALS: BP 124/78; PULSE 58; RESP 19; TEMP 35.9; O2SAT 98
== END 2023-02-17 12:59 | disposition home health service (06) | DRG 345 ==
LOC: ER 02-14 01:57 → MS 02-14 10:27
PROVIDERS: Emergency Medicine Emergency Medical Services; Surgery; Admitting Provider Surgery; Emergency Provider Emergency Medicine; PCP Naturopath; Visit Provider Surgery
PROC: 0D9P7ZZ Drainage of Rectum, Via Natural or Artificial Opening (ICD-10-PCS; CPT 46040; principal; 2023-02-14 12:00)
DX: N82.3 Fistula of vagina to large intestine (principal); K61.1 Rectal abscess; D72.829 Elevated white blood cell count, unspecified; J45.909 Unspecified asthma, uncomplicated; M70.51 Other bursitis of knee, right knee; R00.2 Palpitations; B96.20 Unspecified Escherichia coli [E. coli] as the cause of diseases classified elsewhere; R07.89 Other chest pain; R06.02 Shortness of breath; R50.82 Postprocedural fever
CPT/HCPCS: 46040; 36415; 71275; 80053; 81025; 85027; 87040; 87077; 87491; 87591; 87635; 96361; 96374; 96375; 99285; J1650; 71045; 74177; 81003; 81015; 83735; 84484; 85025; 85379; 86140; 87070; 87075; 87086; 87186; 87205; 87480; 87510; 87660; J1100; J1170; J1885; J2001; J2060; J2250; J2270; J2405; J2543; J2704; J3490

== ENCOUNTER 2023-03-05 14:11 | Inpatient (IN) | payer BC, SELFPAY ==
[2023-03-05 14:17] VITALS: BP 141/64; PULSE 105; TEMP 37.7; O2SAT 100
--- NOTE | 2023-03-05 14:30 | DI.CT_ITS ---
Exam(s) CT ABDOMEN PELVIS W EXAM: CT ABDOMEN PELVIS W CLINICAL HISTORY: post op pain, rectal fistula. TECHNIQUE: Imaging Protocol: Axial computed tomography images with coronal and sagittal reformatted images were created and reviewed CONTRAST MATERIAL: Intravenous: Omnipaque-350 100cc Oral: None COMPARISON: CT CT CHEST PE CTA from 02/17/2023 FINDINGS: VISUALIZED LUNG BASES: No nodules nor pleural effusions evident. ABDOMEN: There is no ascites. LIVER: Mildly enlarged. No dilated intrahepatic ducts. GALLBLADDER/BILIARY: No obvious gallbladder pathology. CBD is not dilated. PANCREAS: No evidence of pancreatic mass nor dilatation of the pancreatic duct. SPLEEN: Mildly enlarged. Measures 13.2 cm cephalocaudal. Splenic and portal veins are patent. ADRENALS: There are no significant adrenal masses. KIDNEYS:No cysts evident. No solid renal masses. No calculi nor hydronephrosis.. ABDOMINAL AORTA: Abdominal aorta is not enlarged. LYMPH NODES:There is no retroperitoneal nor paraaortic adenopathy. ABDOMINAL WALL: No evidence of significant anterior abdominal wall nor inguinal hernia. GI: There is no evidence of bowel obstruction, free air, nor abscess. PELVIS: GI: No evidence of appendicitis.No evidence of sigmoid diverticulitis. LYMPH NODES: There is no intrapelvic nor inguinal adenopathy. REPRODUCTIVE: Age-appropriate appearing uterus. There is a cyst in the left ovary measuring 2.3 x 2 cm probably follicular. Right ovary unremarkable. Tiny amount of fluid in the cul-de-sac probably f emale physiologic. URINARY BLADDER: No calculi nor obvious masses evident OSSEOUS: There is a fracture nondisplaced of the right transverse process of L1. No other fractures evident. No osseous lesions. IMPRESSION: 1. Mild hepatic splenomegaly. No liver lesions are no spleen lesions. 2. 2.3 x 2 cm cyst in the left ovary noted which is probably follicular cyst. Tiny amount of free fl uid in the cul-de-sac which is probably female physiologic. 3. There is a nondisplaced fracture of the right transverse process of L1 vertebral body. May possib ly be developmental. Correlation with prior trauma recommended. No other fractures evident. RADIATION DOSE DELIVERED: 954.34mGy.cm Total DLP DATA REPOSITORY: All CT scans at this facility are submitted to the National Radiology Data Registry (NRDR) Dose Index Registry (DIR) with the [employer] (A[employer]). RADIATION OPTIMIZATION: All CT scans at this facility use at least one of these dose optimization te chniques: automated exposure control; mA and/or kV adjustment per patient size (includes targeted exa ms where dose is matched to clinical indication); or iterative reconstruction.
--- NOTE | 2023-03-05 14:44 | ED.GENADUL_ITS ---
Discharge Plan Disposition Patient Disposition: Admit to [facility] Discharge Details Chief Complaint: GenMedical Clinical Impression: Rectal fistula, Sepsis Primary Care Provider: Maddie Bang ED Provider: Dallas Argueta Home Meds and New Rx's Prescriptions: No Action fluconazole [Diflucan] 150 mg tablet 150 mg PO DAILY Qty: 2 0RF amoxicillin-pot clavulanate 875-125 mg tablet 1 tab PO BID Qty: 14 0RF albuterol sulfate 90 mcg/actuation Hfa Aerosol Inhaler 2 puff INHALATION Q6H PRN tramadol 50 mg tablet 50 mg PO Q8H PRNQty: 12 0RF Medical Decision Making 1500 -- 38-year-old female with history of rectal fistula and recent perianal abscess, status post incision and drainage, recently completed course of antibiotics, now with fever, chills, increased drainage from fistula. Patient is tachycardic, normotensive and febrile. Initial labs reviewed and leukocytosis noted. Patient meets sepsis criteria. Plan to obtain CT of the abdomen pelvis. I will initiate broad-spectrum antibiotic coverage with Zosyn. Blood cultures have been sent. I paged on-call general surgery and spoke with Dr. Dao, discussed ED presentation and course, she will assess the patient. 1539 --patient was seen by Dr. Dao. She will be admitting the patient. Care transition at time of admission. CT and diagnostic labs pending at time of admission. Lab Data Lab results reviewed: Yes I reviewed the patient's lab results. Labs: 03/05/23 15:15 Blood Blood Culture - Pending 03/05/23 14:56 Blood Blood Culture - Pending Laboratory Tests Range/Units 03/05/23 03/05/23 03/05/23 14:56 14:56 14:56 WBC (4.4-10.8) 10^3/uL 14.70 H RBC (3.93-5.22) 10^6/uL 4.61 Hgb (11.2-15.7) g/dL 13.8 Hct (36.0-46.0) % 41.1 MCV (80-95) fL 89 MCH (27.0-33.0) pg 29.9 MCHC (32.0-36.0) % 33.6 RDW (11.7-14.6) % 12.1 Plt Count (130-400) 10^3/uL 206 MPV (8.0-11.0) fL 11.0 Immature Gran % 0.3 Neutrophils % 87.1 Lymphocytes % 5.8 Monocytes % 6.2 Eosinophils % 0.3 Basophils % 0.3 Nucleated RBC % (0.0-0.3) % 0.0 Absolute Neutrophils (1.2-6.7) 10^3/uL 12.80 H Absolute Lymphocytes (1.2-3.4) 10^3/uL 0.85 L Absolute Monocytes (0.1-0.8) 10^3/uL 0.91 H Absolute Eosinophils (0.0-0.7) 10^3/uL 0.04 Absolute Basophils (0.0-0.2) 10^3/uL 0.04 VBG Lactate (0.6-1.4) mmol/L 0.9 Sodium (136-145) mmol/L 135 L Potassium (3.5-5.1) mmol/L 3.6 Chloride (98-107) mmol/L 101 Carbon Dioxide (21.0-32.0) mmol/L 24.9 Anion Gap (3-11) mmol/L 9.1 BUN (7-18) mg/dL 11 Creatinine (0.55-1.02) mg/dL 0.8 Est GFR (CKD-EPI 2020) (mL/min/1.73m2) 97.87 Glucose (74-106) mg/dL 96 Calcium (8.5-10.1) mg/dL 9.6 Total Bilirubin (0.2-1.0) mg/dL 0.5 AST (15-37) U/L 11 L ALT (14-59) U/L 20 Alkaline Phosphatase (46-116) U/L 95 Total Protein (6.4-8.2) g/dL 8.1 Albumin (3.4-5.0) g/dL 4.1 HPI General Mode of arrival: ambulatory . Date/Time Provider Initiated Documentation: 03/05/23 14:12 . Limitations to Documentation: no limitations . Information obtained by: patient . HPI Narrative: 38-year-old female with history of fistula in anal, status post recent transvaginal incision and drainage of perianal abscess, recently completed course of antibiotics 2 days ago and now developing recurrent fever and increased discharge from fistula. She has associated chills and nausea. Related Data Home Medications Medication Instructions Recorded Confirmed albuterol sulfate 90 mcg/actuation 2 puff inhalation Q6H PRN 06/20/20 02/22/23 aerosol inhaler tramadol 50 mg tablet 50 mg PO Q8H PRN #12 tabs 02/17/23 02/22/23 amoxicillin 875 mg-potassium 1 tab PO BID #14 tabs 02/20/23 02/22/23 clavulanate 125 mg tablet fluconazole 150 mg tablet 150 mg PO DAILY #2 tabs 02/20/23 02/22/23 (Diflucan) Previous Rx's Medication Instructions Recorded tramadol 50 mg tablet 50 mg PO Q8H PRN #12 tabs 02/17/23 amoxicillin 875 mg-potassium 1 tab PO BID #14 tabs 02/20/23 clavulanate 125 mg tablet fluconazole 150 mg tablet 150 mg PO DAILY #2 tabs 02/20/23 (Diflucan) Allergies Allergy/AdvReac Type Severity Reaction Status Date / Time raspberry AdvReac Severe extreme Verified 02/20/23 13:56 pain and diarrhea blackberries AdvReac Severe extreme Uncoded 02/20/23 13:56 pain and diarrhea General Stated Complaint: GenMedical TIO: 3 Review of Systems All systems reviewed & are unremarkable except as noted in HPI and below Constitutional Constitutional: Reports fatigue and Reports fever(s) Gastrointestinal Gastrointestinal: Reports as per HPI Endocrine Endocrine: Reports fatigue PFSH All Active Problems (Updated 03/05/23 @ 15:40 by Dallas Argueta MD) Rectal fistula (Acute) Sepsis (Acute) Xhbjqcf-[id number]-ijf (Acute) Recurrent Bursitis of right knee (Acute) Vaginal delivery (Acute) Palpitations (Acute) Medical History Asthma Asymptomatic bacteriuria antepartum Elbow tendinitis Surgical History History of colonoscopy (~12/2022) History of tonsillectomy and adenoidectomy S/P skin biopsy multiple [id number] all Benign Family History Paternal Grandfather Cancer Paternal Grandmother Cancer Aunt Cancer Depression Uncle Cancer Heart disease Hypertension Mother Depression Hypertension Self Depression Other Alcohol use disorder Social History Smoking/Tobacco Use Status: Never Smoking risk assessment performed?: Yes Alcohol Intake: current Alcohol Intake frequency: a few times a week Drug use: Never Substance use type: does not use Housing: house Current gender identity: female Do you feel safe at home: Yes Do you feel safe in your relationship?: Yes Female Reproductive History Menstrual control method: none History History 1 Para 0 Hx # Term Pregnancies 0 Multiple births 0 Hx # Pregnancies 0 Ectopic pregnancies 0 AB induced 0 Hx Number of Living Children 0 AB spontaneous 0 Exam Const General: cooperative HENMT Mouth: moist mucous membranes Eyes Conjunctivae: normal conjunctivae Sclera: normal sclerae Neck Neck: trachea midline and supple Resp Auscultation: clear to auscultation bilaterally, no rales, no rhonchi and no wheezes Cardio Rate: tachycardic Rhythm: regular rhythm GI Palpation: soft, not firm, no guarding, no masses, not rigid and nontender Skin General skin exam: no rashes or lesions noted Neuro General: patient alert, patient awake and tone normal Extrem General: no edema Course Vital Signs Vital signs: Vital Signs Temperature 37.7 C H 03/05/23 14:17 Pulse 105 H 03/05/23 14:17 Blood Pressure 141/64 H 03/05/23 14:17 Pulse Oximetry 100 03/05/23 14:17 Temperature 37.7 C H 03/05/23 14:17 Temperature Source Oral 03/05/23 14:17 Pulse 105 H 03/05/23 14:17 Blood Pressure 141/64 H 03/05/23 14:17 Blood Pressure Position Sitting 03/05/23 14:17 Pulse Oximetry 100 03/05/23 14:17 Oxygen Delivery Method Room Air 03/05/23 14:17 Oxygen Flow Rate 0 03/05/23 14:17 Pain Level 3 03/05/23 14:17 Lab/Test Results Lab/Test Results: 03/05/23 14:22 Blood Blood Culture - Pending 03/05/23 14:22 Blood Blood Culture - Pending
[2023-03-05] MEDS: Lactated Ringers 1,000 ML 1000 ML IV (15:00)
[2023-03-05 15:07] LABS: Lactate 0.9 mmol/L (0.6-1.4)
[2023-03-05] MEDS: PIPERACILLIN/TAZO 4.5 GM in Normal Saline 100 ML IVPB (15:08)
[2023-03-05 15:09] LABS: Abs Immature Grans 0.05 10^3/uL (0.0-0.06); Absolute Basophil Count 0.04 10^3/uL (0.0-0.2); Absolute Eosinophil Count 0.04 10^3/uL (0.0-0.7); Absolute Lymphocyte Count 0.85 10^3/uL (1.2-3.4); Absolute Monocyte Count 0.91 10^3/uL (0.1-0.8); Basophils % 0.3; Eosinophils % 0.3; HCT 41.1 % (36.0-46.0); HGB 13.8 g/dL (11.2-15.7); Immature Grans % 0.3; Lymphocytes % 5.8; MCH 29.9 pg (27.0-33.0); MCHC 33.6 % (32.0-36.0); MCV 89 fL (80-95); Monocytes % 6.2; Neutrophils % 87.1; Platelet Count 206 10^3/uL (130-400); RBC 4.61 10^6/uL (3.93-5.22); RDW 12.1 % (11.7-14.6); RDW-SD 39.5 fL
[2023-03-05 15:25] LABS: ALT 20 U/L (14-59); AST 11 U/L (15-37); Albumin 4.1 g/dL (3.4-5.0); Alkaline Phosphatase 95 U/L (46-116); Anion Gap 9.1 mmol/L (3-11); BUN 11 mg/dL (7-18); Bilirubin, Total 0.5 mg/dL (0.2-1.0); CO2 24.9 mmol/L (21.0-32.0); CREATININE 0.8 mg/dL (0.55-1.02); Calcium 9.6 mg/dL (8.5-10.1); Chloride 101 mmol/L (98-107); Estimated GFR 97.87 (mL/min/1.73m2); Glucose 96 mg/dL (74-106); Potassium 3.6 mmol/L (3.5-5.1); Sodium 135 mmol/L (136-145); Total Protein 8.1 g/dL (6.4-8.2)
[2023-03-05] MEDS: ACETAMINOPHEN 1,000 MG/100 ML BTL 400 MG IVPB (15:39)
[2023-03-05 16:03] LABS: Source Nasal/Nares
[2023-03-05 16:06] LABS: Bilirubin Negative (Negative); Blood Trace-intact (Negative); Clarity Clear (Clear); Glucose Negative (Negative); Ketones Negative (Negative); Leukocyte Esterase Small (Negative); Nitrite Negative (Negative); Specific Gravity 1.015 (1.005-1.025); Urobilinogen 0.2 mg/dL (Up to 0.2)
[2023-03-05 16:13] LABS: Lab Add On Test DONE
[2023-03-05 16:17] LABS: Bacteria Few HPF (Negative); C & S Indicated? No/Sq. Contamination; Casts Negative LPF (Negative); Crystals Negative HPF (Negative); Epithelial Cells Moderate HPF (Negative); Mucus Negative (Negative); RBC 0-2 HPF (0-2)
--- NOTE | 2023-03-05 16:20 | HPE_ITS ---
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 The wounds and infection appear chronic and acute and do not explain the fever or white count. Additional testing is warranted. We will admit her and start her on antibiotics. (3) Jjookdo-zq-kzz: Status: Acute (4) Asthma: (5) Vaginal yeast infection: Status: Acute History of Present Illness Narrative: Patient is a 38-year-old female well-known to the surgical service. She has had problems with recurrent perirectal abscess/fistulous. She had a perirectal abscess that was drained in the office on 05/16. She subsequently developed a fistula and had a fistulotomy on 12/14. She developed a recurrence of the abscess and fistula of the tract up to the vagina. She went underwent an I&D on 02/14. This is never completely healed over. She still has a fistulous tract that is draining at the 3 o'clock position. And this is continues to drain purulent drainage. She was on maintenance Augmentin but ran out 3 days ago. She today she started noticing fevers and shaking chills. She noticed increased pain in the area of the fistula. She has been moving her bowels approximately twice a day. They are pudding consistency. She was on a probiotic. She did have a vaginal yeast infection and was on Diflucan for this. She has not noticed any stool draining from the vagina Review of Systems All systems reviewed & are unremarkable except as noted in HPI and below PFSH All Active Problems (Updated 03/05/23 @ 16:30 by Iesha Dao DO) Vaginal yeast infection (Acute) Rectal fistula (Acute) Sepsis (Acute) Udyzghv-ed-ald (Acute) Recurrent Bursitis of right knee (Acute) Vaginal delivery (Acute) Palpitations (Acute) Medical History Asthma Asymptomatic bacteriuria antepartum Elbow tendinitis Surgical History History of colonoscopy (~12/2022) History of tonsillectomy and adenoidectomy S/P skin biopsy multiple [id number] all Benign Family History Paternal Grandfather Cancer Paternal Grandmother Cancer Aunt Cancer Depression Uncle Cancer Heart disease Hypertension Mother Depression Hypertension Self Depression Other Alcohol use disorder Social History Smoking/Tobacco Use Status: Never Smoking risk assessment performed?: Yes Alcohol Intake: current Alcohol Intake frequency: a few times a week Drug use: Never Substance use type: does not use Housing: house Current gender identity: female Do you feel safe at home: Yes Do you feel safe in your relationship?: Yes Female Reproductive History Menstrual control method: none History History 1 Para 0 Hx # Term Pregnancies 0 Multiple births 0 Hx # Pregnancies 0 Ectopic pregnancies 0 AB induced 0 Hx Number of Living Children 0 AB spontaneous 0 Meds Allergies and Home Medications Allergies Allergy/AdvReac Type Severity Reaction Status Date / Time raspberry AdvReac Severe extreme Verified 02/20/23 13:56 pain and diarrhea blackberries AdvReac Severe extreme Uncoded 02/20/23 13:56 pain and diarrhea Home Medications Medication Instructions Recorded Confirmed Type albuterol sulfate 90 mcg/actuation 2 puff inhalation Q6H PRN 06/20/20 02/22/23 History aerosol inhaler tramadol 50 mg tablet 50 mg PO Q8H PRN #12 tabs 02/17/23 02/22/23 Rx amoxicillin 875 mg-potassium 1 tab PO BID #14 tabs 02/20/23 02/22/23 Rx clavulanate 125 mg tablet fluconazole 150 mg tablet 150 mg PO DAILY #2 tabs 02/20/23 02/22/23 Rx (Diflucan) Exam Resp Effort & Inspection: normal respiratory effort, able to speak in complete s entences and no cough Auscultation: clear to auscultation bilaterally Cardio Rate: tachycardic GI Other: Mature fistula noted at the 3 o'clock position. There is no drainage. There is no redness. There is no swelling. The left labia shows minimal swelling. It does not appear to to be any signs of acute infection. There are signs of chronic low-grade infection. Results Labs 03/05/23 14:56 03/05/23 14:56 Labs: Laboratory Results - last 24 hr 03/05/23 03/05/23 03/05/23 14:56 14:56 14:56 WBC 14.70 H RBC 4.61 Hgb 13.8 Hct 41.1 MCV 89 MCH 29.9 MCHC 33.6 RDW 12.1 Plt Count 206 MPV 11.0 Immature Gran % 0.3 Neutrophils % 87.1 Lymphocytes % 5.8 Monocytes % 6.2 Eosinophils % 0.3 Basophils % 0.3 Nucleated RBC % 0.0 Absolute Neutrophils 12.80 H Absolute Lymphocytes 0.85 L Absolute Monocytes 0.91 H Absolute Eosinophils 0.04 Absolute Basophils 0.04 VBG Lactate 0.9 Sodium 135 L Potassium 3.6 Chloride 101 Carbon Dioxide 24.9 Anion Gap 9.1 BUN 11 Creatinine 0.8 Est GFR (CKD-EPI 2020) 97.87 Glucose 96 Calcium 9.6 Total Bilirubin 0.5 AST 11 L ALT 20 Alkaline Phosphatase 95 Total Protein 8.1 Albumin 4.1 Urine Color Urine Clarity Urine pH Ur Specific [place] Urine Protein Urine Ketones Urine Blood Urine Nitrite Urine Bilirubin Urine Urobilinogen Ur Leukocyte Esterase Urine RBC Urine WBC Ur Epithelial Cells Urine Crystals Urine Bacteria Urine Casts Urine Mucus Ur Culture Indicated? Urine Glucose COVID-19 Source SARS-CoV-2 (PCR) Add-On Test Request 03/05/23 03/05/23 03/05/23 15:39 15:40 15:58 WBC RBC Hgb Hct MCV MCH MCHC RDW Plt Count MPV Immature Gran % Neutrophils % Lymphocytes % Monocytes % Eosinophils % Basophils % Nucleated RBC % Absolute Neutrophils Absolute Lymphocytes Absolute Monocytes Absolute Eosinophils Absolute Basophils VBG Lactate Sodium Potassium Chloride Carbon Dioxide Anion Gap BUN Creatinine Est GFR (CKD-EPI 2020) Glucose Calcium Total Bilirubin AST ALT Alkaline Phosphatase Total Protein Albumin Urine Color Yellow Urine Clarity Clear Urine pH 7.0 Ur Specific [place] 1.015 Urine Protein Negative Urine Ketones Negative Urine Blood Trace-intact H Urine Nitrite Negative Urine Bilirubin Negative Urine Urobilinogen 0.2 Ur Leukocyte Esterase Small H Urine RBC 0-2 Urine WBC 3-5 Ur Epithelial Cells Moderate Urine Crystals Negative Urine Bacteria Few Urine Casts Negative Urine Mucus Negative Ur Culture Indicated? No/Sq. Contamination Urine Glucose Negative COVID-19 Source Cancelled Nasal/Nares SARS-CoV-2 (PCR) Cancelled Add-On Test Request 03/05/23 Unknown WBC RBC Hgb Hct MCV MCH MCHC RDW Plt Count MPV Immature Gran % Neutrophils % Lymphocytes % Monocytes % Eosinophils % Basophils % Nucleated RBC % Absolute Neutrophils Absolute Lymphocytes Absolute Monocytes Absolute Eosinophils Absolute Basophils VBG Lactate Sodium Potassium Chloride Carbon Dioxide Anion Gap BUN Creatinine Est GFR (CKD-EPI 2020) Glucose Calcium Total Bilirubin AST ALT Alkaline Phosphatase Total Protein Albumin Urine Color Urine Clarity Urine pH Ur Specific [place] Urine Protein Urine Ketones Urine Blood Urine Nitrite Urine Bilirubin Urine Urobilinogen Ur Leukocyte Esterase Urine RBC Urine WBC Ur Epithelial Cells Urine Crystals Urine Bacteria Urine Casts Urine Mucus Ur Culture Indicated? Urine Glucose COVID-19 Source SARS-CoV-2 (PCR) Add-On Test Request DONE Last Vital Signs Temp 37.7 C H 03/05/23 14:17 Pulse 105 H 03/05/23 14:17 BP 141/64 H 03/05/23 14:17 Pulse Ox 100 03/05/23 14:17 Basic Metabolic Sodium 135 mmol/L (136-145) L 03/05/23 Potassium 3.6 mmol/L (3.5-5.1) 03/05/23 Chloride 101 mmol/L (98-107) 03/05/23 Carbon Dioxide 24.9 mmol/L (21.0-32.0) 03/05/23 BUN 11 mg/dL (7-18) 03/05/23 Creatinine 0.8 mg/dL (0.55-1.02) 03/05/23 Estimated GFR/1.73 m2 >= 60.00 (mL/min/1.73m2) 06/20/20 Glucose 96 mg/dL (74-106) 03/05/23 CBC White Blood Count 14.70 10^3/uL (4.4-10.8) H 03/05/23 Red Blood Count 4.61 10^6/uL (3.93-5.22) 03/05/23 Hemoglobin 13.8 g/dL (11.2-15.7) 03/05/23 Hematocrit 41.1 % (36.0-46.0) 03/05/23 Mean Corpuscular Volume 89 fL (80-95) 03/05/23 Mean Corpuscular Hemoglobin 29.9 pg (27.0-33.0) 03/05/23 Mean Corpuscular Hemoglobin Concent 33.6 % (32.0-36.0) 08/23 Red Cell Distribution Width 12.1 % (11.7-14.6) 03/05/23 Platelet Count 206 10^3/uL (130-400) 03/05/23 Mean Platelet Volume 11.0 fL (8.0-11.0) 03/05/23 Neutrophils % 87.1 03/05/23 Lymphocytes % 5.8 03/05/23 Monocytes % 6.2 03/05/23 Eosinophils % 0.3 03/05/23 Basophils % 0.3 03/05/23 Immature Granulocytes % 0.3 03/05/23 Comprehensive Metabolic Panel Sodium 135 mmol/L (136-145) L 03/05/23 14:56 Potassium 3.6 mmol/L (3.5-5.1) 03/05/23 14:56 Chloride 101 mmol/L (98-107) 03/05/23 14:56 Carbon Dioxide 24.9 mmol/L (21.0-32.0) 03/05/23 14:56 BUN 11 mg/dL (7-18) 03/05/23 14:56 Creatinine 0.8 mg/dL (0.55-1.02) 03/05/23 14:56 Estimated GFR/1.73 m2 >= 60.00 (mL/min/1.73m2) 06/20/20 15:07 Glucose 96 mg/dL (74-106) 03/05/23 14:56 Calcium 9.6 mg/dL (8.5-10.1) 03/05/23 14:56 Total Bilirubin 0.5 mg/dL (0.2-1.0) 03/05/23 14:56 ALT 20 U/L (14-59) 03/05/23 14:56 AST 11 U/L (15-37) L 03/05/23 14:56 Alkaline Phosphatase 95 U/L (46-116) 03/05/23 14:56 Total Protein 8.1 g/dL (6.4-8.2) 03/05/23 14:56 Albumin 4.1 g/dL (3.4-5.0) 03/05/23 14:56 Stool tests (SJP) No Data to Display Time Spent Time spent with Patient: 55-74 minutes Time was spent: preparing to see the patient(eg.review tests), obtaining and/or reviewing separately otained hiistory, ordering medications,tests, procedures, referring, communicating with other health health care attorney, indepentently interpreting results, counseling the patient and care coordination
[2023-03-05] MEDS: Omnipaque 350 MG/ML 100 ML BTL IJ (16:27)
[2023-03-05] MEDS: Normal Saline - Diluent 50 ML VIAL IJ (16:31)
[2023-03-05 16:43] LABS: COVID-19 PCR Negative (Negative)
[2023-03-05 16:56] LABS: C-Reactive Protein 2.07 mg/dL (0.0-0.3)
[2023-03-05 17:30] VITALS: RESP 16
[2023-03-05 17:35] VITALS: BP 93/68; PULSE 100; RESP 16; TEMP 37.1; O2SAT 99
[2023-03-05 17:48] VITALS: BP 121/71; PULSE 96; PULSE 98; RESP 16; RESP 18; TEMP 38.3; O2SAT 99
[2023-03-05] MEDS: Enoxaparin 40 MG/0.4 ML SYR SC (18:09)
[2023-03-05] MEDS: Fluconazole 100 MG TAB 200 MG PO (18:09)
[2023-03-05] MEDS: metroNIDAZOLE 500 MG/100 ML BAG 100 MG IVPB (18:37)
[2023-03-05] MEDS: CIPROFLOXACIN 400 MG/200 ML BAG 200 MG IVPB (18:38)
[2023-03-05] MEDS: Ketorolac 15 MG/ML VIAL IVP (18:38)
[2023-03-05] MEDS: Normal Saline Flush 10 ML SYR IVP (18:38)
[2023-03-05 19:49] LABS: MRSA PCR Negative (Negative)
[2023-03-05] MEDS: Acetaminophen 500 MG TAB 1000 MG PO (21:23)
[2023-03-05 23:30] VITALS: BP 93/61; PULSE 84; RESP 16; TEMP 37.3; O2SAT 96
[2023-03-06] MEDS: Normal Saline 1,000 ML 75 ML IV (02:00)
[2023-03-06] MEDS: metroNIDAZOLE 500 MG/100 ML BAG 100 MG IVPB (02:14)
[2023-03-06] MEDS: Ondansetron 4 MG/2 ML VIAL IVP (03:00)
[2023-03-06] MEDS: Acetaminophen 500 MG TAB 1000 MG PO ×2 (03:28→09:12)
[2023-03-06 03:35] VITALS: BP 99/63; PULSE 74; RESP 16; TEMP 37.8; O2SAT 97
[2023-03-06 04:11] LABS: C Diff PCR Positive (Negative)
[2023-03-06] MEDS: CIPROFLOXACIN 400 MG/200 ML BAG 200 MG IVPB (06:24)
[2023-03-06 07:30] VITALS: BP 107/68; PULSE 74; RESP 14; TEMP 36.2; O2SAT 96
[2023-03-06 07:35] LABS: Abs Immature Grans 0.04 10^3/uL (0.0-0.06); Absolute Basophil Count 0.05 10^3/uL (0.0-0.2); Absolute Eosinophil Count 0.03 10^3/uL (0.0-0.7); Absolute Lymphocyte Count 1.36 10^3/uL (1.2-3.4); Absolute Monocyte Count 0.88 10^3/uL (0.1-0.8); Absolute Neutrophil Count 10.58 10^3/uL (1.2-6.7); Basophils % 0.4; Eosinophils % 0.2; HCT 38.2 % (36.0-46.0); Immature Grans % 0.3; Lymphocytes % 10.5; MCH 30.9 pg (27.0-33.0); MCV 91 fL (80-95); MPV 11.7 fL (8.0-11.0); Monocytes % 6.8; Neutrophils % 81.8; Platelet Count 200 10^3/uL (130-400); RBC 4.21 10^6/uL (3.93-5.22); RDW 12.4 % (11.7-14.6); RDW-SD 40.9 fL; WBC 12.94 10^3/uL (4.4-10.8)
[2023-03-06] MEDS: Vancomycin 125 MG CAP PO ×2 (07:41→12:39)
[2023-03-06 07:56] LABS: Anion Gap 8.7 mmol/L (3-11); BUN 11 mg/dL (7-18); C-Reactive Protein 10.81 mg/dL (0.0-0.3); CO2 25.3 mmol/L (21.0-32.0); Chloride 104 mmol/L (98-107); Estimated GFR 74.88 (mL/min/1.73m2); Glucose 130 mg/dL (74-106); Potassium 3.6 mmol/L (3.5-5.1); Sodium 138 mmol/L (136-145)
[2023-03-06] MEDS: Fluconazole 100 MG TAB PO (09:12)
--- NOTE | 2023-03-06 09:57 | PGE_ITS ---
Date of Service Date of service: 03/06/23 Time of Service: 09:57 Assessment and Plan Assessment and plan (1) Rectal fistula: Status: Acute Assessment and plan: Has appt [place] [facility] [place], she is on the cancellation list. (2) Sepsis: Status: Acute Assessment and plan: Trend WBC Denies subjective fevers or chills at this time Low grade fever last noted at early this morning (03/06). (3) Vaginal yeast infection: Status: Acute Assessment and plan: Continue Diflucan (4) C. difficile diarrhea: Status: Acute Assessment and plan: Start PO Vancomycin Regular diet Will trend WBC Discussed use of Probiotic to help with GI health Activity as tolerated, encouraged sitting in a chair for meals. Subjective Subjective Interval history since last seen: Arrived with [facility] resting comfortably in bed. She reports that she did have some loose stools earlier this morning. She denies having any abdominal pain at this time. She does have some questions about C. difficile infections and how this could impact the integrity and health of her colon. Exam Const General: cooperative, healthy appearing and comfortable Orientation: alert and oriented x3 Resp Effort & Inspection: normal respiratory effort, no audible wheezes and no cough Objective Last Vital Signs Temp 36.2 C L 03/06/23 07:30 Pulse 74 03/06/23 07:30 Resp 14 03/06/23 07:30 BP 107/68 03/06/23 07:30 Pulse Ox 96 03/06/23 07:30 Laboratory Results - last 24 hr 03/05/23 03/05/23 03/05/23 14:56 14:56 14:56 WBC 14.70 H RBC 4.61 Hgb 13.8 Hct 41.1 MCV 89 MCH 29.9 MCHC 33.6 RDW 12.1 Plt Count 206 MPV 11.0 Immature Gran % 0.3 Neutrophils % 87.1 Lymphocytes % 5.8 Monocytes % 6.2 Eosinophils % 0.3 Basophils % 0.3 Nucleated RBC % 0.0 Absolute Neutrophils 12.80 H Absolute Lymphocytes 0.85 L Absolute Monocytes 0.91 H Absolute Eosinophils 0.04 Absolute Basophils 0.04 VBG Lactate 0.9 Sodium 135 L Potassium 3.6 Chloride 101 Carbon Dioxide 24.9 Anion Gap 9.1 BUN 11 Creatinine 0.8 Est GFR (CKD-EPI 2020) 97.87 Glucose 96 Calcium 9.6 Magnesium Total Bilirubin 0.5 AST 11 L ALT 20 Alkaline Phosphatase 95 C-Reactive Protein Total Protein 8.1 Albumin 4.1 Urine Color Urine Clarity Urine pH Ur Specific [place] Urine Protein Urine Ketones Urine Blood Urine Nitrite Urine Bilirubin Urine Urobilinogen Ur Leukocyte Esterase Urine RBC Urine WBC Ur Epithelial Cells Urine Crystals Urine Bacteria Urine Casts Urine Mucus Ur Culture Indicated? Urine Glucose Stl C.difficile Tox PCR COVID-19 Source SARS-CoV-2 (PCR) MRSA (TEM-PCR) Add-On Test Request 03/05/23 03/05/23 03/05/23 15:15 15:39 15:40 WBC RBC Hgb Hct MCV MCH MCHC RDW Plt Count MPV Immature Gran % Neutrophils % Lymphocytes % Monocytes % Eosinophils % Basophils % Nucleated RBC % Absolute Neutrophils Absolute Lymphocytes Absolute Monocytes Absolute Eosinophils Absolute Basophils VBG Lactate Sodium Potassium Chloride Carbon Dioxide Anion Gap BUN Creatinine Est GFR (CKD-EPI 2020) Glucose Calcium Magnesium Total Bilirubin AST ALT Alkaline Phosphatase C-Reactive Protein 2.07 H Total Protein Albumin Urine Color Yellow Urine Clarity Clear Urine pH 7.0 Ur Specific [place] 1.015 Urine Protein Negative Urine Ketones Negative Urine Blood Trace-intact H Urine Nitrite Negative Urine Bilirubin Negative Urine Urobilinogen 0.2 Ur Leukocyte Esterase Small H Urine RBC 0-2 Urine WBC 3-5 Ur Epithelial Cells Moderate Urine Crystals Negative Urine Bacteria Few Urine Casts Negative Urine Mucus Negative Ur Culture Indicated? No/Sq. Contamination Urine Glucose Negative Stl C.difficile Tox PCR COVID-19 Source Cancelled SARS-CoV-2 (PCR) Cancelled MRSA (TEM-PCR) Add-On Test Request 03/05/23 03/05/23 03/05/23 15:58 18:31 Unknown WBC RBC Hgb Hct MCV MCH MCHC RDW Plt Count MPV Immature Gran % Neutrophils % Lymphocytes % Monocytes % Eosinophils % Basophils % Nucleated RBC % Absolute Neutrophils Absolute Lymphocytes Absolute Monocytes Absolute Eosinophils Absolute Basophils VBG Lactate Sodium Potassium Chloride Carbon Dioxide Anion Gap BUN Creatinine Est GFR (CKD-EPI 2020) Glucose Calcium Magnesium Total Bilirubin AST ALT Alkaline Phosphatase C-Reactive Protein Total Protein Albumin Urine Color Urine Clarity Urine pH Ur Specific [place] Urine Protein Urine Ketones Urine Blood Urine Nitrite Urine Bilirubin Urine Urobilinogen Ur Leukocyte Esterase Urine RBC Urine WBC Ur Epithelial Cells Urine Crystals Urine Bacteria Urine Casts Urine Mucus Ur Culture Indicated? Urine Glucose Stl C.difficile Tox PCR COVID-19 Source Nasal/Nares SARS-CoV-2 (PCR) Negative MRSA (TEM-PCR) Negative Add-On Test Request DONE 03/06/23 03/06/23 03/06/23 02:09 07:00 07:00 WBC 12.94 H RBC 4.21 Hgb 13.0 Hct 38.2 MCV 91 MCH 30.9 MCHC 34.0 RDW 12.4 Plt Count 200 MPV 11.7 H Immature Gran % 0.3 Neutrophils % 81.8 Lymphocytes % 10.5 Monocytes % 6.8 Eosinophils % 0.2 Basophils % 0.4 Nucleated RBC % 0.0 Absolute Neutrophils 10.58 H Absolute Lymphocytes 1.36 Absolute Monocytes 0.88 H Absolute Eosinophils 0.03 Absolute Basophils 0.05 VBG Lactate Sodium 138 Potassium 3.6 Chloride 104 Carbon Dioxide 25.3 Anion Gap 8.7 BUN 11 Creatinine 1.0 Est GFR (CKD-EPI 2020) 74.88 Glucose 130 H Calcium 9.0 Magnesium 2.0 Total Bilirubin AST ALT Alkaline Phosphatase C-Reactive Protein 10.81 H Total Protein Albumin Urine Color Urine Clarity Urine pH Ur Specific [place] Urine Protein Urine Ketones Urine Blood Urine Nitrite Urine Bilirubin Urine Urobilinogen Ur Leukocyte Esterase Urine RBC Urine WBC Ur Epithelial Cells Urine Crystals Urine Bacteria Urine Casts Urine Mucus Ur Culture Indicated? Urine Glucose Stl C.difficile Tox PCR Positive A COVID-19 Source SARS-CoV-2 (PCR) MRSA (TEM-PCR) Add-On Test Request PAWSS Have you Been Recently Intoxicated or Drunk Within the Last 30 days?: No Have you Ever Experienced Previous Episodes of Alcohol Withdrawal?: No Have you ever Experienced Withdrawal Seizures?: No Have you ever Experienced Delirium Tremens(DT)s?: No Have you ever undergone Alcohol Rehabilitation Treatment (i.e, inpt ot outpatient treatment programs)?: No Have you ever Experienced Blackouts?: No Have you ever Combined Alcohol with other Downers within the last 90 days?: No Have you ever Combined Alcohol with any other Substance of Abuse during the last 90 days?: No Result: 0 Time Spent with Patient Time Spent with Patient: <25 minutes Time was spent: preparing to see the patient(eg.review tests), obtaining and/or reviewing separately otained hiistory and counseling the patient
--- NOTE | 2023-03-06 13:17 | W.PM.PROGNOT ---
Date of Service Date of service: 03/06/23 Time of Service: 13:17 Assessment and Plan Assessment and plan (1) Rectal fistula: Status: Acute Assessment and plan: Has appt with [facility] in [place], she is on the cancellation list. (2) Sepsis: Status: Acute Assessment and plan: resolved (3) Vaginal yeast infection: Status: Acute Assessment and plan: Continue Diflucan (4) C. difficile diarrhea: Status: Acute Assessment and plan: Start PO Vancomycin Regular diet Will trend WBC Discussed use of Probiotic to help with GI health Activity as tolerated, encouraged sitting in a chair for meals. Subjective Subjective Interval history since last seen: Patient seen this afternoon. She is doing well. She was able to tolerate a diet. We discussed her C.Diff diagnoses. Patient wants to go home. Patient is upset about miscomunication and misinformation that she is getting from nursing. She was made NPO yesterday at time of admission while we waited for C.Diff results to come back. ONce we had the results this morning we did give her diet. Patient also woders whether she had C.Diff 2 weeks ago when she was in the hospital because she had diarrhea and bloating at that time. I did let her know that I didnt think she has had C.Diff for 2 weeks as her diarrhea did resolve for a while. Exam Const General: cooperative, comfortable and no acute distress Nutritional Appearance: average body habitus Orientation: alert and oriented x3 HENMT Head: normocephalic and atraumatic Resp Effort & Inspection: normal respiratory effort GI Inspection: normal to inspection Palpation: soft, no hepatosplenomegaly and nontender Objective Last Vital Signs Temp 97.2 F L 03/06/23 07:30 Pulse 74 03/06/23 07:30 Resp 14 03/06/23 07:30 BP 107/68 03/06/23 07:30 Pulse Ox 96 03/06/23 07:30 Laboratory Results - last 24 hr 03/05/23 03/05/23 03/05/23 14:56 14:56 14:56 WBC 14.70 H RBC 4.61 Hgb 13.8 Hct 41.1 MCV 89 MCH 29.9 MCHC 33.6 RDW 12.1 Plt Count 206 MPV 11.0 Immature Gran % 0.3 Neutrophils % 87.1 Lymphocytes % 5.8 Monocytes % 6.2 Eosinophils % 0.3 Basophils % 0.3 Nucleated RBC % 0.0 Absolute Neutrophils 12.80 H Absolute Lymphocytes 0.85 L Absolute Monocytes 0.91 H Absolute Eosinophils 0.04 Absolute Basophils 0.04 VBG Lactate 0.9 Sodium 135 L Potassium 3.6 Chloride 101 Carbon Dioxide 24.9 Anion Gap 9.1 BUN 11 Creatinine 0.8 Est GFR (CKD-EPI 2020) 97.87 Glucose 96 Calcium 9.6 Magnesium Total Bilirubin 0.5 AST 11 L ALT 20 Alkaline Phosphatase 95 C-Reactive Protein Total Protein 8.1 Albumin 4.1 Urine Color Urine Clarity Urine pH Ur Specific [place] Urine Protein Urine Ketones Urine Blood Urine Nitrite Urine Bilirubin Urine Urobilinogen Ur Leukocyte Esterase Urine RBC Urine WBC Ur Epithelial Cells Urine Crystals Urine Bacteria Urine Casts Urine Mucus Ur Culture Indicated? Urine Glucose Stl C.difficile Tox PCR COVID-19 Source SARS-CoV-2 (PCR) MRSA (TEM-PCR) Add-On Test Request 03/05/23 03/05/23 03/05/23 15:15 15:39 15:40 WBC RBC Hgb Hct MCV MCH MCHC RDW Plt Count MPV Immature Gran % Neutrophils % Lymphocytes % Monocytes % Eosinophils % Basophils % Nucleated RBC % Absolute Neutrophils Absolute Lymphocytes Absolute Monocytes Absolute Eosinophils Absolute Basophils VBG Lactate Sodium Potassium Chloride Carbon Dioxide Anion Gap BUN Creatinine Est GFR (CKD-EPI 2020) Glucose Calcium Magnesium Total Bilirubin AST ALT Alkaline Phosphatase C-Reactive Protein 2.07 H Total Protein Albumin Urine Color Yellow Urine Clarity Clear Urine pH 7.0 Ur Specific [place] 1.015 Urine Protein Negative Urine Ketones Negative Urine Blood Trace-intact H Urine Nitrite Negative Urine Bilirubin Negative Urine Urobilinogen 0.2 Ur Leukocyte Esterase Small H Urine RBC 0-2 Urine WBC 3-5 Ur Epithelial Cells Moderate Urine Crystals Negative Urine Bacteria Few Urine Casts Negative Urine Mucus Negative Ur Culture Indicated? No/Sq. Contamination Urine Glucose Negative Stl C.difficile Tox PCR COVID-19 Source Cancelled SARS-CoV-2 (PCR) Cancelled MRSA (TEM-PCR) Add-On Test Request 03/05/23 03/05/23 03/05/23 15:58 18:31 Unknown WBC RBC Hgb Hct MCV MCH MCHC RDW Plt Count MPV Immature Gran % Neutrophils % Lymphocytes % Monocytes % Eosinophils % Basophils % Nucleated RBC % Absolute Neutrophils Absolute Lymphocytes Absolute Monocytes Absolute Eosinophils Absolute Basophils VBG Lactate Sodium Potassium Chloride Carbon Dioxide Anion Gap BUN Creatinine Est GFR (CKD-EPI 2020) Glucose Calcium Magnesium Total Bilirubin AST ALT Alkaline Phosphatase C-Reactive Protein Total Protein Albumin Urine Color Urine Clarity Urine pH Ur Specific [place] Urine Protein Urine Ketones Urine Blood Urine Nitrite Urine Bilirubin Urine Urobilinogen Ur Leukocyte Esterase Urine RBC Urine WBC Ur Epithelial Cells Urine Crystals Urine Bacteria Urine Casts Urine Mucus Ur Culture Indicated? Urine Glucose Stl C.difficile Tox PCR COVID-19 Source Nasal/Nares SARS-CoV-2 (PCR) Negative MRSA (TEM-PCR) Negative Add-On Test Request DONE 03/06/23 03/06/23 03/06/23 02:09 07:00 07:00 WBC 12.94 H RBC 4.21 Hgb 13.0 Hct 38.2 MCV 91 MCH 30.9 MCHC 34.0 RDW 12.4 Plt Count 200 MPV 11.7 H Immature Gran % 0.3 Neutrophils % 81.8 Lymphocytes % 10.5 Monocytes % 6.8 Eosinophils % 0.2 Basophils % 0.4 Nucleated RBC % 0.0 Absolute Neutrophils 10.58 H Absolute Lymphocytes 1.36 Absolute Monocytes 0.88 H Absolute Eosinophils 0.03 Absolute Basophils 0.05 VBG Lactate Sodium 138 Potassium 3.6 Chloride 104 Carbon Dioxide 25.3 Anion Gap 8.7 BUN 11 Creatinine 1.0 Est GFR (CKD-EPI 2020) 74.88 Glucose 130 H Calcium 9.0 Magnesium 2.0 Total Bilirubin AST ALT Alkaline Phosphatase C-Reactive Protein 10.81 H Total Protein Albumin Urine Color Urine Clarity Urine pH Ur Specific [place] Urine Protein Urine Ketones Urine Blood Urine Nitrite Urine Bilirubin Urine Urobilinogen Ur Leukocyte Esterase Urine RBC Urine WBC Ur Epithelial Cells Urine Crystals Urine Bacteria Urine Casts Urine Mucus Ur Culture Indicated? Urine Glucose Stl C.difficile Tox PCR Positive A COVID-19 Source SARS-CoV-2 (PCR) MRSA (TEM-PCR) Add-On Test Request PAWSS Have you Been Recently Intoxicated or Drunk Within the Last 30 days?: No Have you Ever Experienced Previous Episodes of Alcohol Withdrawal?: No Have you ever Experienced Withdrawal Seizures?: No Have you ever Experienced Delirium Tremens(DT)s?: No Have you ever undergone Alcohol Rehabilitation Treatment (i.e, inpt ot outpatient treatment programs)?: No Have you ever Experienced Blackouts?: No Have you ever Combined Alcohol with other Downers within the last 90 days?: No Have you ever Combined Alcohol with any other Substance of Abuse during the last 90 days?: No Result: 0 Time Spent with Patient Time Spent with Patient: <25 minutes Time was spent: counseling the patient
--- NOTE | 2023-03-06 13:23 | W.PM.DS.N ---
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 difficile diarrhea: Status: Acute Asessment and Plan: Vancomysin po low fiber diet Discharge Plan Disposition Patient Disposition: Home Condition: Stable Discharge Details Reason For Visit: Recurrent Fistula in ano Admit Date/Time: 03/05/23 15:35 Admit Provider: Iesha Dao Attending Provider: Iesha Dao Primary Care Provider: Maddie Bang Hospital Course Hospital Course: Ms Gaitan is a pleasant 38 year old female who was admitted to the hospital yesterday with diarrhea, Leukocytosis and swelling around the vaginal incision from 2 weeks ago. She was found to have C.Diff colitis. Leukocytosis decreased overnight on Cipro and Flagyl. Vancomycin started. Patient had no fevers overnight. She has been able to tolerate a regular diet. She was also diagnosed with recurrance of vaginal candidiasis. I discussed her diagnoses with her. She would like to go home and continue her recvery there. He Vitals are stable. She is able to eat and drink without N/V. Return precautions reviewed with her. If she develops increased diarrhea, rectal bleeding, N/V, abdominal pain she needs to let us know right away. Home Meds and New Rx's Prescriptions: New vancomycin 125 mg capsule 125 mg PO QID 10 Days Qty: 40 0RF fluconazole 150 mg tablet 150 mg PO DAILY Qty: 7 0RF Continued amoxicillin-pot clavulanate 875-125 mg tablet 1 tab PO BID Qty: 14 0RF albuterol sulfate 90 mcg/actuation Hfa Aerosol Inhaler 2 puff INHALATION Q6H PRN tramadol 50 mg tablet 50 mg PO Q8H PRNQty: 12 0RF Discontinued fluconazole [Diflucan] 150 mg tablet 150 mg PO DAILY Qty: 2 0RF Discharge Instructions Instructions: Low Fiber Diet (DC), C. Diff (Clostridioides Difficile) Infection (DC) Additional Instructions: Diet: low fiber for 2 weeks and then slowly advance back to high fiber diet Activity: as tolerated Return precautions as above Medications: Vancomycin 125 mg 1 tab 4 x a day Diflucan 150 mg daily for 7 days Referrals: Heather Sherman MD [ [facility] STAFF PHYSICIAN] - 03/11/23 8:30 am Activity:: Activity as Tolerated Equipment/Supplies:: No Equipment Needed Diet:: low fiber Discharge Orders Discharge Orders: Discharge Order (Routine); Ordered 03/06/23 Ordered By: Heather Sherman DS: Summary Time Spent with Patient providing and/or coordinating discharge services: Greater than 30 minutes Status at Discharge Functional status at discharge: independent ambulation Overall status at discharge: patient is back to baseline Mental Status: mental status grossly normal Speech and Movement: speech and movement normal Mood: congruent mood Affect: normal affect Exam Psych Mental Status: mental status grossly normal Speech and Movement: speech and movement normal Mood: congruent mood Affect: normal affect DS: Data Vitals/I&O Vitals and I&O: Vital Signs Temperature 97.2 F L 03/06/23 07:30 Temperature Source Tympanic 03/06/23 07:30 Pulse 74 03/06/23 07:30 Pulse Rhythm Regular 03/06/23 08:00 Respiratory Rate 14 03/06/23 07:30 Respiratory Effort Normal, Non-Labored 03/06/23 08:00 Respiratory Depth Normal 03/06/23 08:00 Respiratory Pattern Normal 03/06/23 08:00 Blood Pressure 107/68 03/06/23 07:30 Blood Pressure Position Sitting 03/05/23 14:17 Pulse Oximetry 96 03/06/23 07:30 Oxygen Delivery Method Room Air 03/06/23 07:30 Oxygen Flow Rate 0 03/06/23 07:30 Pain Level 3 03/06/23 07:30 Comment tylenol given 03/06/23 03:35 Intake & Output 03/05/23 03/06/23 03/06/23 23:59 11:59 23:59 Intake Total 1510 / 1510 Balance 1510 / 1510 Weight 210 lb Intake: IV 1510 / 1510 Other: Urine Appearance Clear Clear Comment declined toileting-pt wans to sleep. Voiding Methods Toilet Data Completed and Pending Labs on day of discharge: Labs from last 24 hours 03/06/23 03/06/23 03/06/23 07:00 07:00 02:09 WBC 12.94 H RBC 4.21 Hgb 13.0 Hct 38.2 MCV 91 MCH 30.9 MCHC 34.0 RDW 12.4 Plt Count 200 MPV 11.7 H Immature Gran % 0.3 Neutrophils % 81.8 Lymphocytes % 10.5 Monocytes % 6.8 Eosinophils % 0.2 Basophils % 0.4 Nucleated RBC % 0.0 Absolute Neutrophils 10.58 H Absolute Lymphocytes 1.36 Absolute Monocytes 0.88 H Absolute Eosinophils 0.03 Absolute Basophils 0.05 VBG Lactate Sodium 138 Potassium 3.6 Chloride 104 Carbon Dioxide 25.3 Anion Gap 8.7 BUN 11 Creatinine 1.0 Est GFR (CKD-EPI 2020) 74.88 Glucose 130 H Calcium 9.0 Magnesium 2.0 Total Bilirubin AST ALT Alkaline Phosphatase C-Reactive Protein 10.81 H Total Protein Albumin Urine Color Urine Clarity Urine pH Ur Specific [place] Urine Protein Urine Ketones Urine Blood Urine Nitrite Urine Bilirubin Urine Urobilinogen Ur Leukocyte Esterase Urine RBC Urine WBC Ur Epithelial Cells Urine Crystals Urine Bacteria Urine Casts Urine Mucus Ur Culture Indicated? Urine Glucose Stl C.difficile Tox PCR Positive A COVID-19 Source SARS-CoV-2 (PCR) MRSA (TEM-PCR) Add-On Test Request 03/05/23 03/05/23 03/05/23 Unknown 18:31 15:58 WBC RBC Hgb Hct MCV MCH MCHC RDW Plt Count MPV Immature Gran % Neutrophils % Lymphocytes % Monocytes % Eosinophils % Basophils % Nucleated RBC % Absolute Neutrophils Absolute Lymphocytes Absolute Monocytes Absolute Eosinophils Absolute Basophils VBG Lactate Sodium Potassium Chloride Carbon Dioxide Anion Gap BUN Creatinine Est GFR (CKD-EPI 2020) Glucose Calcium Magnesium Total Bilirubin AST ALT Alkaline Phosphatase C-Reactive Protein Total Protein Albumin Urine Color Urine Clarity Urine pH Ur Specific [place] Urine Protein Urine Ketones Urine Blood Urine Nitrite Urine Bilirubin Urine Urobilinogen Ur Leukocyte Esterase Urine RBC Urine WBC Ur Epithelial Cells Urine Crystals Urine Bacteria Urine Casts Urine Mucus Ur Culture Indicated? Urine Glucose Stl C.difficile Tox PCR COVID-19 Source Nasal/Nares SARS-CoV-2 (PCR) Negative MRSA (TEM-PCR) Negative Add-On Test Request DONE 03/05/23 03/05/23 03/05/23 15:40 15:39 15:15 WBC RBC Hgb Hct MCV MCH MCHC RDW Plt Count MPV Immature Gran % Neutrophils % Lymphocytes % Monocytes % Eosinophils % Basophils % Nucleated RBC % Absolute Neutrophils Absolute Lymphocytes Absolute Monocytes Absolute Eosinophils Absolute Basophils VBG Lactate Sodium Potassium Chloride Carbon Dioxide Anion Gap BUN Creatinine Est GFR (CKD-EPI 2020) Glucose Calcium Magnesium Total Bilirubin AST ALT Alkaline Phosphatase C-Reactive Protein 2.07 H Total Protein Albumin Urine Color Yellow Urine Clarity Clear Urine pH 7.0 Ur Specific [place] 1.015 Urine Protein Negative Urine Ketones Negative Urine Blood Trace-intact H Urine Nitrite Negative Urine Bilirubin Negative Urine Urobilinogen 0.2 Ur Leukocyte Esterase Small H Urine RBC 0-2 Urine WBC 3-5 Ur Epithelial Cells Moderate Urine Crystals Negative Urine Bacteria Few Urine Casts Negative Urine Mucus Negative Ur Culture Indicated? No/Sq. Contamination Urine Glucose Negative Stl C.difficile Tox PCR COVID-19 Source Cancelled SARS-CoV-2 (PCR) Cancelled MRSA (TEM-PCR) Add-On Test Request 03/05/23 03/05/23 03/05/23 14:56 14:56 14:56 WBC 14.70 H RBC 4.61 Hgb 13.8 Hct 41.1 MCV 89 MCH 29.9 MCHC 33.6 RDW 12.1 Plt Count 206 MPV 11.0 Immature Gran % 0.3 Neutrophils % 87.1 Lymphocytes % 5.8 Monocytes % 6.2 Eosinophils % 0.3 Basophils % 0.3 Nucleated RBC % 0.0 Absolute Neutrophils 12.80 H Absolute Lymphocytes 0.85 L Absolute Monocytes 0.91 H Absolute Eosinophils 0.04 Absolute Basophils 0.04 VBG Lactate 0.9 Sodium 135 L Potassium 3.6 Chloride 101 Carbon Dioxide 24.9 Anion Gap 9.1 BUN 11 Creatinine 0.8 Est GFR (CKD-EPI 2020) 97.87 Glucose 96 Calcium 9.6 Magnesium Total Bilirubin 0.5 AST 11 L ALT 20 Alkaline Phosphatase 95 C-Reactive Protein Total Protein 8.1 Albumin 4.1 Urine Color Urine Clarity Urine pH Ur Specific [place] Urine Protein Urine Ketones Urine Blood Urine Nitrite Urine Bilirubin Urine Urobilinogen Ur Leukocyte Esterase Urine RBC Urine WBC Ur Epithelial Cells Urine Crystals Urine Bacteria Urine Casts Urine Mucus Ur Culture Indicated? Urine Glucose Stl C.difficile Tox PCR COVID-19 Source SARS-CoV-2 (PCR) MRSA (TEM-PCR) Add-On Test Request 03/05/23 15:15 Blood Blood Culture - Pending 03/05/23 14:56 Blood Blood Culture - Pending Preliminary micro results at discharge 03/05/23 15:15 Blood Culture - Pending Blood 03/05/23 14:56 Blood Culture - Pending Blood PFSH All Active Problems C. difficile diarrhea (Acute) Vaginal yeast infection (Acute) Rectal fistula (Acute) Sepsis (Acute) [id number] (Acute) Recurrent Bursitis of right knee (Acute) Vaginal delivery (Acute) Palpitations (Acute) Medical History Asthma Asymptomatic bacteriuria antepartum Elbow tendinitis Surgical History History of colonoscopy (~12/2022) History of tonsillectomy and adenoidectomy S/P skin biopsy multiple [id number] all Benign Family History Paternal Grandfather Cancer Paternal Grandmother Cancer Aunt Cancer Depression Uncle Cancer Heart disease Hypertension Mother Depression Hypertension Self Depression Other Alcohol use disorder Social History Smoking/Tobacco Use Status: Never Smoking risk assessment performed?: Yes Alcohol Intake: current Alcohol Intake frequency: a few times a week Drug use: Never Substance use type: does not use Housing: house Current gender identity: female Do you feel safe at home: Yes Do you feel safe in your relationship?: Yes Female Reproductive History Menstrual control method: none History History 1 Para 0 Hx # Term Pregnancies 0 Multiple births 0 Hx # Pregnancies 0 Ectopic pregnancies 0 AB induced 0 Hx Number of Living Children 0 AB spontaneous 0 Time Spent with Patient Time Spent with Patient: <45 minutes Time was spent: counseling the patient
== END 2023-03-06 15:32 | disposition home or self-care (01) | DRG 872 ==
LOC: ER 15:59 → MS 17:45
PROVIDERS: Admitting Provider Surgery; Emergency Provider Student in an Organized Health Care Education/Training Program; PCP Naturopath; Visit Provider Surgery
DX: A04.72 Enterocolitis due to Clostridium difficile, not specified as recurrent (principal); A41.9 Sepsis, unspecified organism; K60.4 Rectal fistula; J45.909 Unspecified asthma, uncomplicated; B37.31 Acute candidiasis of vulva and vagina; M70.51 Other bursitis of knee, right knee; R00.2 Palpitations
CPT/HCPCS: 36415; 80048; 80053; 87040; 87493; 87635; 87641; 96365; 96367; 96376; 99285; J1650; 74177; 81003; 81015; 83605; 83735; 85025; 86140; J0131; J0744; J1885; J2405; J2543; J3490

== ENCOUNTER 2025-04-01 18:38 | Outpatient (REF) | payer BC, SELFPAY ==
[2025-04-01 12:46] LABS: Abs Immature Grans 0.11 10^3/uL (0.0-0.06); HCT 39.3 % (36.0-46.0); HGB 13.1 g/dL (11.2-15.7); Immature Grans % 0.8 %; MCH 31.8 pg (27.0-33.0); MCHC 33.3 % (32.0-36.0); MCV 95 fL (80-95); MPV 12.2 fL (8.0-11.0); Platelet Count 129 10^3/uL (130-400); RBC 4.12 10^6/uL (3.93-5.22); RDW 13.1 % (11.7-14.6); RDW-SD 45.7 fL; WBC 13.36 10^3/uL (4.4-10.8)
== END 2025-04-01 18:39 | disposition home or self-care (01) ==
LOC: LBN 18:38
PROVIDERS: PCP Naturopath; Visit Provider Midwife
DX: O99.113 Other diseases of the blood and blood-forming organs and certain disorders involving the immune mechanism complicating pregnancy, third trimester (principal); Z3A.40 40 weeks gestation of pregnancy
CPT/HCPCS: 85025

== ENCOUNTER 2025-05-04 20:15 | Outpatient (REF) | payer BC, SELFPAY ==
[2025-05-04 17:51] LABS: Abs Immature Grans 0.01 10^3/uL (0.0-0.06); HCT 44.3 % (36.0-46.0); HGB 14.5 g/dL (11.2-15.7); Immature Grans % 0.1 %; MCH 31.1 pg (27.0-33.0); MCHC 32.7 % (32.0-36.0); MCV 95 fL (80-95); MPV 11.5 fL (8.0-11.0); Platelet Count 184 10^3/uL (130-400); RBC 4.66 10^6/uL (3.93-5.22); RDW 11.9 % (11.7-14.6); RDW-SD 41.3 fL; WBC 8.26 10^3/uL (4.4-10.8)
== END 2025-05-04 20:16 | disposition home or self-care (01) ==
LOC: LBN 20:15
PROVIDERS: PCP Naturopath; Visit Provider Midwife
DX: Z86.2 Personal history of diseases of the blood and blood-forming organs and certain disorders involving the immune mechanism (principal); Z09 Encounter for follow-up examination after completed treatment for conditions other than malignant neoplasm
CPT/HCPCS: 85025